=== PATIENT | female | born 1935 | race Caucasian/White ===

== ENCOUNTER 2017-05-06 21:44 | Emergency (ER) | payer MEDICARE ==
[~2017-05-06] VITALS: Ht 162.6 cm; Wt 78.9 kg
[~2017-05-06 21:44] MED LIST: ADVAIR 500/501 EA INH; AMLODIPINE BESYL5 MG PO; ASTEPRO137 MCG/0. INH; BYSTOLIC2.5 MG PO; COMBIVENT INH14.7 GM INH; FOLIC ACID1 MG PO; LOSARTAN POTASS25 MG PO; METHOTREXATE2.5 M1 PO; NISOLDIPINE25.5 MG PO; PANTOPRAZOLE SO40 MG PO; PREDNISONE5 MG PO; ULTRAM50 MG PO; WARFARIN SODIUM4 MG PO
--- NOTE | 2017-05-06 22:40 | Diagnostic Imaging Report ---
Exam: Head CT without contrast History: Trauma, fall Comparison studies: Previous head CT of 04/09/2012 is unavailable on PACS for comparison. Technique: Axial images were obtained from the skull base to the vertex. Coronal and sagittal images reconstructed from the axial data. Intravenous contrast: None Findings: Scalp: Small left frontal-suprarenal soft tissue hematoma. No retained hyperdense foreign body. Bones: No fractures, blastic or lytic lesions. Brain sulci: Mildly prominent. Ventricles: Mild compensatory dilatation. No hydrocephalus. Extra-axial spaces: No masses, no fluid collection. Parenchyma: No mass, acute hemorrhage or acute cortical vascular insults. A few scattered hypodensities in the supratentorial white matter are nonspecific but most compatible with chronic small vessel ischemic changes. Sellar/suprasellar region: No abnormalities. Craniocervical junction: Patent foramen magnum. No Chiari one malformation. Incidental findings: Atherosclerotic calcifications in the carotid siphons and left intradural vertebral artery. IMPRESSION: 1. Small left frontal/supraorbital scalp hematoma without underlying fracture or retained hyperdense foreign body. 2. No acute intracranial abnormalities. 3. Mild generalized volume loss. 4. Mild chronic microvascular ischemic changes. Signed by: Dr. Tam Lindsey M.D. on 05/06/2017 10:36 PM
[2017-05-07 00:09] VITALS: BP 174/74
== END 2017-05-07 00:17 | disposition home or self-care (01) ==
LOC: ER 21:44
DX: S00.81XA Abrasion of other part of head, initial encounter (principal); W01.0XXA Fall on same level from slipping, tripping and stumbling without subsequent striking against object, initial encounter; Y92.008 Other place in unspecified non-institutional (private) residence as the place of occurrence of the external cause; I10 Essential (primary) hypertension; E11.9 Type 2 diabetes mellitus without complications; M06.9 Rheumatoid arthritis, unspecified
CPT/HCPCS: 70450; 99283

== ENCOUNTER 2017-06-21 21:43 | Emergency (ER) | payer MEDICARE ==
[~2017-06-21] VITALS: Ht 162.6 cm; Wt 78.9 kg
--- OUTSIDE RECORDS SUMMARY | 2017-06-21 21:45 | XMS REPORT ---
[facility] Address Unknown Phone Unavailable Care Team Providers Care Binding Folder Machine Name Role Phone NIKA MONTALVO Unavailable Unavailable Problems This patient has no known problems. Allergies, Adverse Reactions, Alerts This patient has no known allergies or adverse reactions. Medications This patient has no known medications. Results Test Description Test Time Test Comments Text Results Atomic Results Result Comments CT BRAIN WO [place] [address] Patient Name: BETH JASSO MR #: [id number] : 1935 Age/Sex: 82/F Req #: [id number] Adm Physician: Ordered by: NIKA MONTALVO MD Report #: [id number] Location: ER Room/Bed: Procedure: [id number] CT/CT BRAIN WO Exam Date: Exam Time: REPORT STATUS: Signed Exam: Head CT without contrast History: Trauma, fall Comparison studies: Previous head CT of 04/09/2012 is unavailable on PACS for comparison. Technique: Axial images were obtained from the skull base to the vertex. Coronal and sagittal images reconstructed from the axial data. Intravenous contrast: None Findings: Scalp: Small left frontal- suprarenal soft tissue hematoma. No retained hyperdense foreign body. Bones : No fractures, blastic or lytic lesions. Brain sulci: Mildly prominent. Ventricles: Mild compensatory dilatation. No hydrocephalus. Extra-axial spaces : No masses, no fluid collection. Parenchyma: No mass, acute hemorrhage or acute cortical vascular insults. A few scattered hypodensities in the supratentorial white matter are nonspecific but most compatible with chronic small vessel ischemic changes. Sellar/suprasellar region: No abnormalities. Craniocervical junction: Patent foramen magnum. No Chiari one malformation. Incidental findings: Atherosclerotic calcifications in the carotid siphons and left intradural vertebral artery. IMPRESSION: 1. Small left frontal/supraorbital scalp hematoma without underlying fracture or retained hyperdense foreign body. 2. No acute intracranial abnormalities. 3. Mild generalized volume loss. 4. Mild chronic microvascular ischemic changes. Signed by: Dr. Mehran Duron M.D. on 2017 10:36 PM Dictated By: MEHRAN DURON MD 35 Transcribed By: NATIVIDAD on 05/06/172235 COPY TO: NIKA MONTALVO MD
--- NOTE | 2017-06-21 23:47 | Diagnostic Imaging Report ---
EXAMINATION: Head and cervical spine CT without contrast. HISTORY: Status post fall, head trauma COMPARISON: Head CT on 05/06/2017 TECHNIQUE: Multidetector axial images were obtained without contrast from the foramen magnum to the vertex and through the cervical spine. The images were reconstructed using brain and bone algorithms. Thin section brain images were reformatted into coronal and sagittal planes. HEAD CT FINDINGS: Skull: No lytic or blastic lesions. No fractures. Parenchyma: Unchanged mild chronic microvascular ischemic changes. No mass, hemorrhage or CT evidence of acute vascular insult. Brain volume: Normal for age. Ventricles: No hydrocephalus or displacement. Arteries: No density suggestive of thrombus. Dural sinuses: No abnormal density. Extra-axial spaces: No abnormal density. Foramen magnum: No mass, Chiari malformation, or basilar invagination. Sella: No obvious mass. Paranasal/mastoid sinuses: Imaged portions unremarkable. CERVICAL SPINE CT FINDINGS: Alignment:Reversal of the cervical lordosis. Age indeterminate likely chronic and degenerative anterolisthesis at C2-C3 and C3-C4 anterolisthesis at C7-T1.. Soft tissues: Normal. Vertebrae: Normal height and density. No acute fracture, infection or neoplasm. Degenerative changes: C1-C2: Degenerative changes without stenosis. C2-C3: Facet arthrosis without stenosis. Minimal anterolisthesis. C3-C4: Disc osteophyte compresses formation, uncovertebral and facet arthrosis minimally in the right. Moderately severe right foraminal stenosis. Minimal anterolisthesis. C4-C5: Disc osteophyte complex formation, uncovertebral and facet arthrosis minimally on the right. Moderate right foraminal stenoses.. C5-C6: Disc osteophyte complex formation, bilateral uncovertebral and facet arthrosis. Moderate canal and bilateral foraminal stenoses C6-C7: Disc osteophyte compresses formation, bilateral uncovertebral anterolisthesis and facet arthrosis. Moderate spinal canal and severe foraminal stenosis worst on the right. C7-T1: Bilateral facet arthrosis without significant stenoses. IMPRESSION: Head CT: 1. No acute intracranial hemorrhage. Unchanged from head CT on 05/06/2017 2. Stable mild chronic microvascular ischemic changes. Cervical spine CT: 1. No acute fractures or dislocations. 2. Chronic degenerative changes as described. Note: Acute post traumatic spinal cord, vascular or ligamentous injury cannot adequately be assessed with CT. Signed by: Dr. Belkis Ramos M.D. on 06/21/2017 11:43 PM
--- NOTE | 2017-06-21 23:48 | Diagnostic Imaging Report ---
SHOULDER RIGHT COMPLETE HISTORY: Right shoulder pain status post fall. COMPARISON: None FINDINGS: Bones: No displaced fracture. Osseous alignment is within normal limits. Joints: Moderate degenerative changes of the right glenohumeral joint. Significant narrowing of the acromiohumeral interval suggestive of rotator cuff injury. Soft tissues: The soft tissues appear unremarkable. IMPRESSION: 1. No acute osseous abnormality. 2. Lack of internal/external rotation views limits the examination and suggest a frozen shoulder due to rotator cuff tear. However, dislocation or nondisplaced fractures cannot be excluded 3. Further evaluation with axillary or scapular views are recommended Signed by: Dr. Jaylon Donnelly M.D. on 06/21/2017 11:44 PM
[2017-06-21 23:52] VITALS: BP 152/89
== END 2017-06-21 23:53 | disposition home or self-care (01) ==
LOC: ER 21:43
DX: S00.81XA Abrasion of other part of head, initial encounter (principal); S00.83XA Contusion of other part of head, initial encounter; S40.011A Contusion of right shoulder, initial encounter; W01.0XXA Fall on same level from slipping, tripping and stumbling without subsequent striking against object, initial encounter; Y93.01 Activity, walking, marching and hiking; Y92.488 Other paved roadways as the place of occurrence of the external cause; I10 Essential (primary) hypertension; E11.9 Type 2 diabetes mellitus without complications; J45.909 Unspecified asthma, uncomplicated; M06.9 Rheumatoid arthritis, unspecified; F32.9 Major depressive disorder, single episode, unspecified; E78.5 Hyperlipidemia, unspecified
CPT/HCPCS: 70450; 72125; 99283

== ENCOUNTER → 2017-10-30 | Outpatient (CLI) | payer MEDICARE ==
[~2017-10-30] MED LIST changes: +FUROSEMIDE INJ 10 MG/ML 4 ML VIAL ONE
--- NOTE | 2017-10-30 18:48 | Diagnostic Imaging Report ---
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 Recent urinary incontinence. Technique: Following intravenous administration of 10 mCi of Tc-99m MAG3, dynamic images of the kidneys in the posterior projection were obtained through 40 minutes. Lasix 40 mg was administered intravenously at 10 minutes post injection of the tracer. Report: Left kidney: Perfusion of the left kidney is prompt. The kidney has a normal reniform shape. Extraction of tracer from the blood pool is normal for age. Clearance of tracer from the renal parenchyma is prompt. No caliectasis but the renal pelvis is mildly dilated.. Increased pooling of tracer is seen in the renal pelvis. No net drainage of tracer from the pelvicalyceal system is seen prior to administration of Lasix. Washout of tracer from the pelvicalyceal system following administration of Lasix is rapid with a T-1/2 of 10 minutes (normal less than 15 minutes). No significant stasis of tracer is seen within the left ureter. Right kidney: Perfusion to the right kidney is prompt. The right kidney has a normal reniform shape. The right kidney is smaller than the left kidney. Extraction of tracer by the renal parenchyma is normal for age. Clearance of tracer from the renal parenchyma is prompt. No dilated calices but the renal pelvis is mildly dilated. Increased pooling of tracer is seen within the renal pelvis. No net drainage of tracer from the pelvicalyceal system is seen prior to administration of Lasix. Washout of tracer from the pelvicalyceal system following administration of Lasix is rapid with a T-1/2 of 10 minutes (normal less than 15 minutes). No significant stasis of tracer is seen within the right ureter. Differential renal function: The left kidney contributes 55% of total renal function and the right kidney contributes 45% (normal 43-57%). Impression: 1. The function of the left kidney is generally normal for patient's age. The renal pelvis is mildly dilated. No physiologically significant obstruction of the renal collecting system is present. 2. The function of the right kidney is generally normal for patient's age. The smaller size of the right kidney compared to the left accounts for the differential function of 45%. The renal pelvis is mildly dilated. No physiologically significant obstruction of the renal collecting system is present. 3. The differential renal function is preserved. Signed by: Dr. Xiao Reddy M.D. on 10/30/2017 6:45 PM
== END ==
LOC: NM 14:01
PROVIDERS: ATTEND Urology
DX: Q62.11 Congenital occlusion of ureteropelvic junction (principal)
CPT/HCPCS: 78708; A9562; J1940

== ENCOUNTER → 2018-10-19 | Outpatient (CLI) | payer MEDICARE ==
--- NOTE | 2018-10-19 12:17 | Diagnostic Imaging Report ---
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 Lasix 40 mg was administered intravenously at 10 minutes post injection of the tracer. Report: Left kidney: Perfusion of the left kidney is prompt. The kidney has a normal reniform shape. Extraction of tracer from the blood pool is normal. Clearance of tracer from the renal parenchyma is prompt. The pelvicalyceal system is not dilated although the renal pelvis is prominent and slightly more dilated than on the. Mildly increased pooling of tracer is seen within the pelvis. No net drainage of tracer from the pelvicalyceal system is seen prior to administration of Lasix. Washout of tracer from the pelvicalyceal system following administration of Lasix is rapid with a T-1/2 of 10 minutes (normal less than 15 minutes). No significant stasis of tracer is seen within the left ureter. Right kidney: Perfusion to the right kidney is prompt. The right kidney has a normal reniform shape. Extraction of tracer by the renal parenchyma is normal. Clearance of tracer from the renal parenchyma is prompt. The pelvicalyceal system is not dilated although the renal pelvis is slightly more prominent than prior. Mildly increased pooling of tracer is seen within the renal pelvis. No net drainage of tracer from the pelvicalyceal system is seen prior to administration of Lasix. Washout of tracer from the pelvicalyceal system following administration of Lasix is adequate with a T-1/2 of 8 minutes (normal less than 15 minutes). No significant stasis of tracer is seen within the right ureter. Differential renal function: The left kidney contributes 50% of total renal function and the right kidney contributes 50% (normal 43-57%), previously left 47% and right 53%, which is not a statistically significant difference. Impression: 1. The function of the left kidney is generally normal. No hydronephrosis is present although the renal pelvis is prominent. No physiologically significant obstruction of the renal collecting system is present. The appearance of the kidney and the washout pattern are unchanged from the prior study. The slightly rivera renal pelvis compared to prior likely reflects hydration status. 2. The function of the right kidney is generally normal. No hydronephrosis is present although the renal pelvis is prominent. No physiologically significant obstruction of the renal collecting system is present. The appearance of the kidney and the washout pattern are unchanged from the prior study. The slightly rivera renal pelvis compared to prior likely reflects hydration status. 3. The differential renal function is preserved. Signed by: Dr. Xiao Reddy M.D. on 10/19/2018 12:13 PM
== END ==
LOC: NM 09:33
PROVIDERS: ATTEND Urology
DX: Q62.11 Congenital occlusion of ureteropelvic junction (principal)
CPT/HCPCS: 78708; A9562; J1940

== ENCOUNTER → 2019-09-22 | Outpatient (CLI) | payer MEDICARE ==
[~2019-09-22] MED LIST changes: -FUROSEMIDE INJ 10 MG/ML 4 ML VIAL ONE
[2019-09-22 13:49] LABS: BASOPHILS # (AUTO) 0.1 (0.0-0.1); EOSINOPHILS # (AUTO) 0.2 (0.0-0.4); HEMOGLOBIN 11.8 g/dL (12.0-16.0); LYMPHOCYTES # (AUTO) 1.6 (1.0-3.2); LYMPHOCYTES % 18.6 % (18.0-39.1); MEAN CORPUSCULAR HEMOGLOBIN 29.5 pg (28-32); MEAN CORPUSCULAR HGB CONC 32.8 g/dL (31-35); MONOCYTES # (AUTO) 0.7 (0.2-0.8); MONOCYTES % 7.9 % (4.4-11.3); NEUTROPHILS # (AUTO) 6.1 (2.1-6.9); PLATELET COUNT 330 x10e3/uL (140-360); RED CELL DISTRIBUTION WIDTH 13.2 % (11.7-14.4)
[2019-09-22 15:05] LABS: ERYTHROCYTE SEDIMENTATION RATE 26 mm/hr (0-20)
== END ==
LOC: RAD 12:40
PROVIDERS: ATTEND Specialist
DX: T84.53XA Infection and inflammatory reaction due to internal right knee prosthesis, initial encounter (principal)
CPT/HCPCS: 36415; 85025; 85651; 86140

== ENCOUNTER → 2019-09-30 | Outpatient (CLI) | payer MEDICARE ==
--- NOTE | 2019-09-30 14:02 | Diagnostic Imaging Report ---
X-ray chest PA and lateral view Comparison: None. History: Preop for surgery Findings: Central airways unremarkable. Heart size borderline normal. Atherosclerotic aorta. No pleural effusion or pneumothorax. Lung smith grossly unremarkable. Retrocardiac lucency suggesting presence of a hiatal hernia. Visualized skeletal structures show degenerative changes and mild thoracic kyphosis. Upper abdomen unremarkable. Impression: No acute cardiopulmonary disease. Possible hiatal hernia. Signed by: Liban Bell MD on 09/30/2019 1:59 PM
== END ==
LOC: RAD 11:26
PROVIDERS: ATTEND Family Medicine
DX: Z01.810 Encounter for preprocedural cardiovascular examination (principal)
CPT/HCPCS: 71046

== ENCOUNTER 2019-10-11 08:45 | Inpatient (IN) | payer MEDICARE, OTHER ==
[2019-10-07 11:20] LABS: BASOPHILS # (AUTO) 0.1 (0.0-0.1); BASOPHILS % 0.6 % (0.0-1.0); EOSINOPHILS # (AUTO) 0.1 (0.0-0.4); EOSINOPHILS % 0.7 % (0.0-6.0); HEMATOCRIT 33.1 % (34.2-44.1); HEMOGLOBIN 10.9 g/dL (12.0-16.0); LYMPHOCYTES # (AUTO) 1.2 (1.0-3.2); LYMPHOCYTES % 12.5 % (18.0-39.1); MEAN CORPUSCULAR HEMOGLOBIN 29.1 pg (28-32); MEAN CORPUSCULAR HGB CONC 32.9 g/dL (31-35); MEAN CORPUSCULAR VOLUME 88.5 fL (81-99); MONOCYTES # (AUTO) 0.9 (0.2-0.8); MONOCYTES % 9.3 % (4.4-11.3); NEUTROPHILS # (AUTO) 7.4 (2.1-6.9); NEUTROPHILS % 76.5 % (38.7-80.0); PLATELET COUNT 460 x10e3/uL (140-360); RED BLOOD COUNT 3.74 x10e6/uL (3.6-5.1); RED CELL DISTRIBUTION WIDTH 12.8 % (11.7-14.4)
[2019-10-07 11:36] LABS: ANION GAP 14.9 mmol/L (8-16); BLOOD UREA NITROGEN 13 mg/dL (7-26); BUN/CREATININE RATIO 15 (6-25); CALCIUM 9.3 mg/dL (8.4-10.2); CARBON DIOXIDE 24 mmol/L (22-29); CHLORIDE 97 mmol/L (98-107); CREATININE, SERUM 0.86 mg/dL (0.57-1.11); EST GLOMERULAR FILTRATION RATE > 60 ML/MIN (60-); GLUCOSE 202 mg/dL (74-118); POTASSIUM 3.9 mmol/L (3.5-5.1); SODIUM 132 mmol/L (136-145)
[~2019-10-11] VITALS: Ht 160 cm; Wt 74.4 kg
[~2019-10-11 08:45] MED LIST changes: +AMLODIPINE BESY10 MG PO; +BUPROPION XL150 MG PO; +BYSTOLIC5 MG PO; +COMBIVENT RESPIM4 GM IH; +CYCLOBENZAPRINE10 MG PO; +FEXOFENADINE H180 MG PO; +FOLIC ACID0.4 MG PO; +FOSAMAX70 MG PO; +GLIPIZIDE ER5 MG PO; +HYDRALAZINE HCL25 MG PO; +IRBESARTAN150 MG PO; +METFORMIN HCL500 MG PO; +METHOTREXATE2.5 MG PO; +MONTELUKAST SOD10 MG PO; +ORENCIA87.5 MG/0. IV; +PRO AIR INH; +ROPIVACAINE 246.25 MG, EPINEPHRINE HCL 1:1000 1ML 0.5 MG, CLONIDINE HCL 0.08 MG, KETORO... INJ ONE; +SIMVASTATIN40 MG PO; +SYMBICORT 16010.2 GM INH; +VANCOMYCIN HCL 1 GM VIAL ONE
[2019-10-11] MEDS ORDERED: VANCOMYCIN 1GM/NS 250 ML 250 ML ONE (09:08)
[2019-10-11] MEDS ORDERED: CELECOXIB 200 MG CAP ONE (09:22)
[2019-10-11] MEDS ORDERED: DEXAMETHASONE SOD PHOS 10 MG/1 ML VIAL ONE (09:22)
[2019-10-11] MEDS ORDERED: GABAPENTIN 300 MG CAP ONE (09:23)
[2019-10-11] MEDS ORDERED: BACITRACIN 50,000 UNIT VIAL ONE (09:56)
[2019-10-11] MEDS ORDERED: VANCOMYCIN HCL 500 MG ONE (09:56)
[2019-10-11] MEDS ORDERED: SODIUM CHLORIDE 0.9% 500ML 500 ML ONE (09:56)
[2019-10-11] MEDS ORDERED: TRANEXAMIC ACID 1,000 MG/10 ML ML ONE (09:56)
[2019-10-11] MEDS ORDERED: BUPIVACAINE 7.5MG/ML /DEXTROSE 82.5MG/ML 2 ML AMP INJ ONE (10:18)
[2019-10-11] MEDS ORDERED: MUPIROCIN 2% OINT 22 GM TUBE ONE (12:39)
[2019-10-11] MEDS ORDERED: KETOROLAC TROMETHAMINE 30 MG/ML VIAL IV PRN (13:00)
[2019-10-11] MEDS ORDERED: ACETAMINOPHEN 650 MG SUPP PR PRN (13:00)
[2019-10-11] MEDS ORDERED: DIPHENHYDRAMINE HCL INJ 50 MG/ML VIAL IV PRN (13:00)
[2019-10-11] MEDS ORDERED: DOCUSATE SODIUM 100 MG CAP PO PRN (13:00)
[2019-10-11] MEDS ORDERED: HYDROCODONE/APAP 5MG-325MG TAB PO PRN (13:00)
[2019-10-11] MEDS ORDERED: ONDANSETRON HCL INJ 2MG/ML 2ML 2 MG/ML VIAL IV PRN (13:00)
[2019-10-11] MEDS ORDERED: FENTANYL CITRATE/PF 100MCG/2 ML INJ ONE ×2 (13:51→15:18)
[2019-10-11] MEDS ORDERED: HYDROMORPHONE 1MG/1ML INJ ONE (14:31)
--- NOTE | 2019-10-11 15:10 | NUR ---
PT ARRIVED TO ROOM 106; IN STABLE CONDITION.
[2019-10-11 15:12] VITALS: BP 145/76
[2019-10-11] MEDS ORDERED: MIDAZOLAM HCL 2 MG/2 ML VIAL ONE (15:18)
--- NOTE | 2019-10-11 15:25 | Diagnostic Imaging Report ---
EXAMINATION: KNEE RIGHT 1-2 VIEWS INDICATION: Postoperative COMPARISON: None FINDINGS: AP and lateral portable radiographs of the right knee demonstrate removal of presumed prior right knee arthroplasty hardware and placement of antibiotic spacer. Alignment appears near-anatomic. Surgical drain in place. Small amount of subcutaneous soft tissue emphysema. Surgical skin kyle overlie the anterior knee. IMPRESSION: Postoperative findings of the right knee as above. Signed by: Latesha Baker MD on 10/11/2019 3:22 PM
--- NOTE | 2019-10-11 16:46 | NUR ---
DR JONES OFFICE PREARRANGED FOLLOWING DISCHARGE PLAN OF: HOME TO [address] [facility] WITH [facility] CONFIRMED WITH STEPHANIE [phone] DME 3 IN ONE COMMODE, CPM AND ROLLING WALKER WITH WHEELS. PROVIDED BY SUSANNE [phone] STEVE SIGNED AND ON CHART COPY LEFT WITH PATIENT GAVE CARD FOR QUESTIONS AND OR CONCERNS.
--- NOTE | 2019-10-11 17:50 | Operative Report ---
DATE OF PROCEDURE: 10/11/2019 SURGEON: Tam Alonso MD MECHANICAL ENGINEERING OFFICER: Rory Winchester, certified PA. PREOPERATIVE DIAGNOSIS: Infected right total knee arthroplasty. 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 PROCEDURES: Right knee irrigation and debridement, resection arthroplasty, repair of extensor mechanism, placement of temporary antibiotic prosthesis. INDICATIONS: The patient is an 84-year-old lady, who is several years status post a right total knee replacement at an outside institution. She has known for a long time that she had some issues with her knee cap after the surgery. Over the last several weeks, she developed a draining sinus over the anterior aspect of the knee. Considering the radiographic appearance of the patella, it was highly suggestive that this was a draining sinus coming from within the knee. I explained all of this to the patient. The severe challenges of someone in her age category getting through these potential surgeries was explained. She has a good attitude and understands the challenges. She would like to proceed with wound exploration and treatment as indicated. We have thoroughly explained the high likelihood of performing a resection arthroplasty and a potential second-stage reimplantation a few months later. She states she understands and wishes to proceed. DESCRIPTION OF PROCEDURE: The patient was brought to the operating room and given a spinal anesthetic. She received tranexamic acid and vancomycin was initiated. At the time, she was placed into the operating room. Her right lower extremity was prepped and draped in a sterile manner. A preoperative time-out was performed. The extremity was exsanguinated and the proximal tourniquet was inflated to 300 mmHg. The previous incision was utilized. This was carried down through the prepatellar fascia. The lateral retinaculum was completely absent. Much of the quadriceps mechanism was absent. I would estimate that there was about 20% of the quadriceps tendon, still attached to the proximal patella. The patella was nearly vertically oriented in the trochlear groove. There was an obvious communication between the deep joint and the draining sinus. There was more than expected bleeding encountered. We elected to deflate the tourniquet and exsanguinate the extremity a second time. The tourniquet was reinflated to 350 mmHg. This helped, but the wound was not completely dry. We returned to exposing the knee. It was evident that this would clearly necessitate a synovectomy and resection arthroplasty. A subtotal synovectomy was therefore, performed. Cultures were sent, well prior to the full administration of the antibiotics. Further soft tissue releases were performed to bring the knee up into flexion with the patella everted. A 0.5-inch reciprocating saw was used to delaminate the tibial and femoral prosthesis from the underlying bone. Bone tamps were used to remove the components. The bone was soft, but minimal bone destruction in addition to the previous surgery was accomplished. The patella was carefully removed. The patellar bone was also very soft and easily fragmented. All of the bone cement from the previous surgery was carefully removed. All necrotic bone was removed from both the patella, the proximal tibia, and distal femur. The wound was thoroughly irrigated with a shower tip pulsatile lavage. Care was taken to make sure that all the inflammatory synovium was excised. A temporary antibiotic prosthesis was trialed for sizing. The [employer] system was used. Two mixes of bone cement were prepared on the back table. An additional 3 g of vancomycin were placed into each mix of cement. An additional gram of tobramycin was also added. The femoral and tibial components were cemented into place. Some of the extravasated cement was removed. The wound was further irrigated while the cement cured. The wound was then closed over a deep medium-sized Hemovac drain. The extensor mechanism was repaired as best as possible considering what was left of the tissue. The medial arthrotomy was repaired with #1 Ethibond in an interrupted fashion. The skin was carefully closed with subcuticular Vicryl and kyle. The skin was very thin. A sterile bandage and a knee immobilizer were applied. The patient was then transported to the recovery room in stable condition. Estimated blood loss was 100 mL. At the end of the procedure, all needle and sponge counts were correct. Tam Alonso MD DR/MARCELL /[id number]
[2019-10-11] MEDS: ENOXAPARIN SOD INJ 40 MG/0.4 ML SYR SC SCH (17:51)
[2019-10-11] MEDS: CELECOXIB 100 MG CAP PO SCH (17:51)
[2019-10-11] MEDS: HYDROCODONE/APAP 7.5MG-325MG 1 EA TAB PO PRN (17:51)
[2019-10-11] MEDS: VANCOMYCIN 1GM/NS 250 ML 250 ML IV SCH (17:53)
[2019-10-11] MEDS: SODIUM CHLORIDE 0.9% 1000ML 1,000 ML IV SCH (17:53)
--- NOTE | 2019-10-11 17:55 | NUR ---
PT VOIDED ONCE IN BEDPAN. IN STABLE CONDITION.
[2019-10-11 18:08] VITALS: BP 147/72
[2019-10-11 20:00] VITALS: BP 151/72
--- NOTE | 2019-10-11 20:20 | NUR ---
Attempted to call Dr Collins for medical management, answering service stated that Dr Collins does not cover here.
--- NOTE | 2019-10-11 20:42 | NUR ---
Spoke with Dr Alonso regarding consult to Dr Collins for medical management. New consult for Dr Heller for medical management.
--- NOTE | 2019-10-11 20:53 | NUR ---
Dr Gamez consulted for medical management. Reported FSBS 309 and no sliding scale ordered. New order for low dose sliding scale humalog.
[2019-10-11] MEDS ORDERED: ZOLPIDEM TARTRATE 5 MG TAB PO PRN (21:00)
[2019-10-11] MEDS ORDERED: DEXTROSE 50% SYRINGE 50 ML IV PRN (21:00)
[2019-10-11] MEDS: NEBIVOLOL 10 MG TAB PO SCH (21:45)
[2019-10-11] MEDS: INSULIN LISPRO 100 UNIT/1 ML 3ML VIAL SQ SCH (22:00)
[2019-10-11] MEDS: SIMVASTATIN 40 MG TAB PO SCH (22:18)
[2019-10-12] VITALS (7 sets, daily range): BP systolic 122–153; BP diastolic 60–76
[2019-10-12] MEDS: VANCOMYCIN 1GM/NS 250 ML 250 ML IV SCH (01:50)
[2019-10-12] MEDS: SODIUM CHLORIDE 0.9% 1000ML 1,000 ML IV SCH ×3 (01:56→21:07)
[2019-10-12] MEDS: HYDROCODONE/APAP 7.5MG-325MG 1 EA TAB PO PRN ×5 (02:00→21:25)
[2019-10-12 05:04] LABS: HEMATOCRIT 26.1 % (34.2-44.1); HEMOGLOBIN 8.6 g/dL (12.0-16.0)
--- NOTE | 2019-10-12 07:00 | NUR ---
RECEIVED PATIENT AWAKE RESTING IN BED NO S/S OF DISTRESS. BED LOW, WHEELS LOCKED, SIDE RAILS X2. CALL LIGHT IN REACH WILL CONTINUE TO MONITOR PATIENT.
[2019-10-12] MEDS: INSULIN LISPRO 100 UNIT/1 ML 3ML VIAL SQ SCH ×4 (07:30→21:00)
[2019-10-12] MEDS: LORATADINE 10 MG TAB PO SCH (08:44)
[2019-10-12] MEDS: GLIPIZIDE 5 MG TAB ER PO SCH (08:50)
[2019-10-12] MEDS: IRBESARTAN 150 MG TAB PO SCH (08:54)
[2019-10-12] MEDS: MONTELUKAST SODIUM 10 MG TAB PO SCH (08:54)
[2019-10-12] MEDS: AMLODIPINE BESYLATE 10 MG TAB PO SCH (08:54)
[2019-10-12] MEDS: FOLIC ACID 1 MG TAB PO SCH (08:54)
[2019-10-12] MEDS: BUPROPION HCL 150 MG TABCR PO SCH (08:54)
[2019-10-12] MEDS: METFORMIN HCL 500 MG TAB PO SCH ×2 (08:54→17:01)
[2019-10-12] MEDS: CELECOXIB 100 MG CAP PO SCH ×2 (08:54→17:01)
[2019-10-12] MEDS: HYDRALAZINE HCL 25 MG TAB PO SCH (08:54)
[2019-10-12] MEDS: PANTOPRAZOLE SOD 40 MG TABEC PO SCH (08:54)
[2019-10-12] MEDS: NEBIVOLOL 10 MG TAB PO SCH ×3 (08:54→21:00)
[2019-10-12] MEDS ORDERED: VANCOMYCIN 1GM/NS 250 ML 250 ML IV SCH (09:00)
[2019-10-12] MEDS: CEFEPIME 1GM/NS 0.9% 50 ML 50 ML IV SCH ×2 (10:04→17:01)
--- NOTE | 2019-10-12 10:44 | Progress Note ---
DATE: SUBJECTIVE: The patient is seen and evaluated. Available labs and notes reviewed. Discussed with Dr. Walls in details. Please refer to chart for more information. REVIEW OF SYSTEMS: No nausea, vomiting, fever, chills, chest pain, shortness of breath, had a rash, dysuria. Pain seems to be controlled. PHYSICAL EXAMINATION: VITAL SIGNS: Temperature is 98.1, pulse 73, respirations 20, and blood pressure 153/67. GENERAL: Alert and oriented, no acute distress. CV: S1, S2. CHEST: Equal expansion. Clear to auscultation. No acute distress. ABDOMEN: Soft, nontender. No distention. Bowel sounds positive. HEENT: Moist. No pallor. No JVD. EXTREMITIES: Right knee with a surgical dressing and immobilizer. MEDICATION: List reviewed. LABORATORY STUDIES: White count of 9.6 on 10/07/2019 with platelet count of 460, and creatinine was 0.86. No new CBC or BMP from today. Wound culture from 10/11/2019 showed no organisms on Gram stain with the culture pending. Imaging 10/11/2019, x-ray of the right knee showed postoperative findings of the right knee showing alignment appears near anatomic. Surgical drain was noted. Removal of presumed prior right knee arthroplasty, hardware with placement of antibiotic spacers. ASSESSMENT AND PLAN: 1. Infected right knee. The patient is status post right knee I and D with resection of arthroplasty and placement of a temporary antibiotic. 2. Diabetes. 3. Hypertension. 4. Hyperlipidemia. 5. Anemia. 6. Cultures pending with a gram stain negative. We continued with the treatment with vancomycin IV. Get a PICC line. Plan for 3 weeks of IV antibiotics and follow up with the wound culture. This was discussed with Dr. Walls in details. Please refer to chart for more information. Dictated by Rl Garcia PA-C (Al) Gamaliel Walls MD /MODL /[id number]
[2019-10-12] MEDS ORDERED: ACETAMINOPHEN 1000 MG/100 ML IV PRN (13:00)
[2019-10-12] MEDS ORDERED: CEFEPIME HCL 1 GM VIAL IV SCH (14:00)
[2019-10-12] MEDS: ENOXAPARIN SOD INJ 40 MG/0.4 ML SYR SC SCH (17:01)
--- NOTE | 2019-10-12 17:26 | Diagnostic Imaging Report ---
Examination: Single AP view of the chest. COMPARISON: Chest 2 views 09/30/2019 INDICATION: Line placement IMPRESSION: 1. Lines and Tubes: Interval placement of right-sided PICC line with distal. Projecting in the proximal to mid SVC. 2. Lungs are grossly clear. No consolidation or effusion. 3. Mild enlargement of the cardiac silhouette. Mild central venous congestion. Stable lucency with air-fluid level in the retrocardiac region, likely reflecting hiatal hernia 4. No acute bony abnormalities. Marked bilateral glenohumeral joint degenerative changes. Signed by: Dr. Sebastian Sparrow M.D. on 10/12/2019 5:22 PM
--- NOTE | 2019-10-12 19:20 | NUR ---
BEDSIDE SHIFT REPORT RECEIVED FROM DAY RN. PT IS ALERT AND ORIENTED X3. RESPIRATIONS ARE EVEN AND UNLABORED. JAMESON WRAP TO RT LEGS/P RT KNEE REPLACEMENT WITH SPACERS. 20 G SL IN LEFT HAND. PICC RT UPPER ARM DL - OK TO USE PER DAY RN. RT HEMOVAC DRAIN TO RT LEG.RT ANKLE EDEMATOUS. IMMOBILIZER LOSENED SLIGHTLY ON RT LEG. PT C/O IMMOBILIZER TO TIGHT. PT VOID PER DIAPER. DENIES PAIN. CALL LIGHT WITHIN REACH. BED LOCKED AND IN LOW POSITION.
[2019-10-12] MEDS ORDERED: VANCOMYCIN 300 ML IV SCH (21:00)
[2019-10-12] MEDS: SIMVASTATIN 40 MG TAB PO SCH (21:08)
--- NOTE | 2019-10-12 22:17 | History and Physical ---
PRIMARY CARE PHYSICIAN: Dr. Henok Kelly. CHIEF COMPLAINT: Right lower extremity pain. HISTORY OF PRESENT ILLNESS: This is an 84-year-old female with past medical history of hypertension, diabetes, high cholesterol, hiatal hernia, GERD, and rheumatoid arthritis, admitted post right knee irrigation and debridement with resection arthroplasty and repair of extensor mechanism with the placement of temporary antibiotic prosthesis per Dr. Alonso. She denies any fever, chills, chest pain, shortness of breath, nausea, or vomiting. She was noted to have recent infection due to her kneecap shifting. She was evaluated by Dr. Alonso and underwent debridement yesterday. She has a drain and dressing is intact. Pain has controlled, and on cefepime and vancomycin IV antibiotics therapy. PAST MEDICAL HISTORY: 1. Hypertension. 2. Diabetes. 3. High cholesterol. 4. GERD. 5. Rheumatoid arthritis. PAST SURGICAL HISTORY: She had right knee total arthroplasty 10 years ago, bilateral cataract surgery last year, hysterectomy, bladder suspension, and back surgery. FAMILY MEDICAL HISTORY: Reports her sister and brother both have diabetes. SOCIAL HISTORY: She denies any tobacco, alcohol, or illicit drug use. She lives with her at home. ALLERGIES: SHE IS ALLERGIC TO PENICILLIN, SHELLFISH, ASPIRIN, CLONIDINE, LEVAQUIN, MEPERIDINE, AND PHENYLBUTAZONE. REVIEW OF SYSTEMS: 12 system reviewed and negative except as reported on HPI. PHYSICAL EXAMINATION: VITAL SIGNS: Temperature 97.9, pulse is 65, respirations 18, blood pressure 140/60, and pulse ox is 95% on room air. GENERAL: In no acute distress. HEENT: Normocephalic and atraumatic. LUNGS: Clear to auscultation. CARDIOVASCULAR: Regular rate and rhythm. GI: Soft and nontender. NEUROLOGIC: Alert, awake, and oriented x3. MUSCULOSKELETAL: Right lower extremity decreased ROM due to recent surgery. SKIN: Dry and intact. PSYCH: Calm. LABORATORY DATA: WBC 9.65, hemoglobin 10.9, hematocrit 33.1, and platelets 460. Sodium 132, potassium 3.9, and creatinine 0.86. Vancomycin trough is 21.2. Coronavirus PCR is negative. X-ray of the right knee shows postoperative findings of the right knee as above. IMPRESSION: 1. Right knee infection post total knee arthroplasty, status post I and D and resection of arthroplasty with placement of temporary antibiotic. ID was consulted, currently on cefepime and vancomycin IV. 2. Hypertension. Resume home Norvasc and hydralazine. 3. Diabetes type 2. Continue on glipizide and metformin, sliding scale insulin as needed. 4. High cholesterol. Continue statin. 5. History of gastroesophageal reflux disease. Continue Protonix. 6. History of rheumatoid arthritis. Pain management as needed. 7. Deep vein thrombosis prophylaxis. On Lovenox. PLAN: To continue current treatment, physical therapy to evaluate and treat. DISPOSITION: To home with home health once cleared by Orthopedics. Dictated by MELVIN Sarah Omar Heller MD MY/MODL /[id number]
[2019-10-13] VITALS: BP 129/51
[2019-10-13] MEDS: CEFEPIME 1GM/NS 0.9% 50 ML 50 ML IV SCH ×3 (02:50→16:29)
[2019-10-13 04:00] VITALS: BP 128/57
[2019-10-13] MEDS: SODIUM CHLORIDE 0.9% 1000ML 1,000 ML IV SCH ×2 (05:24→14:38)
[2019-10-13 05:45] LABS: HEMATOCRIT 25.2 % (34.2-44.1); HEMOGLOBIN 8.1 g/dL (12.0-16.0)
--- NOTE | 2019-10-13 06:16 | NUR ---
LT 20 G SL D/C WITH CATHETER INTACT.PRESSURE DRESSING TO HAND. NO BLEEDING NOTED. PT TOLERATED PROCEDURE WELL.
--- NOTE | 2019-10-13 07:00 | NUR ---
RECEIVED PATIENT AWAKE RESTING IN BED NO S/S OF DISTRESS. BED LOW, WHEELS LOCKED, SIDE RAILS X2. CALL LIGHT IN REACH WILL CONTINUE TO MONITOR PATIENT.
[2019-10-13] MEDS: INSULIN LISPRO 100 UNIT/1 ML 3ML VIAL SQ SCH ×3 (07:30→16:30)
[2019-10-13] MEDS: HYDRALAZINE HCL 25 MG TAB PO SCH (08:03)
[2019-10-13] MEDS: LORATADINE 10 MG TAB PO SCH (08:04)
[2019-10-13] MEDS: GLIPIZIDE 5 MG TAB ER PO SCH (08:04)
[2019-10-13] MEDS: METFORMIN HCL 500 MG TAB PO SCH ×2 (08:04→16:28)
[2019-10-13] MEDS: FOLIC ACID 1 MG TAB PO SCH (08:04)
[2019-10-13] MEDS: PANTOPRAZOLE SOD 40 MG TABEC PO SCH (08:04)
[2019-10-13] MEDS: CELECOXIB 100 MG CAP PO SCH (08:04)
[2019-10-13] MEDS: NEBIVOLOL 10 MG TAB PO SCH ×2 (08:04→14:37)
[2019-10-13] MEDS: IRBESARTAN 150 MG TAB PO SCH (08:04)
[2019-10-13] MEDS: BUPROPION HCL 150 MG TABCR PO SCH (08:04)
[2019-10-13] MEDS: MONTELUKAST SODIUM 10 MG TAB PO SCH (08:04)
[2019-10-13] MEDS: AMLODIPINE BESYLATE 10 MG TAB PO SCH (08:04)
[2019-10-13 08:06] VITALS: BP 124/53
[2019-10-13 08:19] VITALS: BP 124/53
--- NOTE | 2019-10-13 09:28 | Progress Note ---
DATE: SUBJECTIVE: The patient is seen and evaluated. Available labs and notes reviewed. Discussed with Dr. Walls. Discussed with Case Management. Discussed with the patient. REVIEW OF SYSTEMS: No nausea, vomiting, fever, chills, chest pain, shortness of breath, headache, rash, dysuria, tolerating antibiotics okay without any diarrhea. No medical complaints this morning. PHYSICAL EXAMINATION: VITAL SIGNS: Temperature 98.4, pulse 62, respirations 18, and blood pressure 124/53. GENERAL: Alert and oriented, no acute distress. CV: S1-S2. CHEST: Equal expansion. Clear to auscultation. No acute distress. ABDOMEN: Soft, nontender and nondistended. HEENT: Moist. No pallor. No JVD. EXTREMITIES: Right lower extremity surgical site dressed with Hemovac in place. MEDICATIONS: Medication list reviewed. From ID point of view, the patient is on cefepime 1 g IV piggyback q.6 hours and vancomycin 1 g IV piggyback daily. Toxicology; vancomycin trough 21.2 yesterday. LABORATORY STUDIES: No new CBC or BMP available. MICROBIOLOGY: Wound culture still negative, 24 hours. IMAGING: Status post PICC line placement. ASSESSMENT AND PLAN: 1. Infected right knee, status post I and D, right knee resection of arthroplasty and placement of a temporary antibiotics. 2. Diabetes. 3. Hypertension. 4. Debility. 5. Hyperlipidemia. 6. Anemia. 7. Continue with antibiotics for a total of 3 weeks. The patient is status post PICC line placement. Decision has been made between home with IV antibiotics and/or to another facility for completion of IV antibiotics and receive some rehab. Discussed with Case Management about the length of antibiotics and the labs that the patient is going to need during the IV antibiotics. Planned to remove the PICC line after IV antibiotics completed. Follow up with Dr. Walls in 2 weeks after discharge. Please refer to chart for more information. Discussed with Dr. Walls. Dictated by Rl Garcia PA-C (Al) Gamaliel Walls MD /MODL /[id number]
[2019-10-13 11:37] VITALS: BP 140/57
[2019-10-13] MEDS ORDERED: Hydrocodone/Apap 5MG-325MG PO (13:04)
[2019-10-13] MEDS ORDERED: LOVENOX40 MG/0.4 SC (13:04)
[2019-10-13] MEDS ORDERED: Hydrocodone/Apap 7.5MG-325MG PO (13:04)
[2019-10-13] MEDS ORDERED: ONDANSETRON HCL 4 MG ORAL DISINTEGRATING TAB PO PRN (13:15)
[2019-10-13] MEDS: HYDROCODONE/APAP 7.5MG-325MG 1 EA TAB PO PRN (14:37)
--- NOTE | 2019-10-13 15:49 | NUR ---
REPORT CALLED TO MATTHEW AT [facility]. SUMMARY OF CARE PROVIDED TO PATIENT.
[2019-10-13] MEDS: ENOXAPARIN SOD INJ 40 MG/0.4 ML SYR SC SCH (16:28)
--- NOTE | 2019-10-13 16:28 | NUR ---
SPOKE WITH PT ABOUT HOME WITH IV ABX PT HAS MCR PRIMARY AND AARP SECONDARY IF PT DOES HOME IV ABX SHE WILL HAVE A 500 DOLLAR CO-PAY PER WEEK IF SHE GOES TO OP INFUSION [employer] SHE WILL NOT HAVE TO PAY ANY OUT OF POCKET PT AND DISCUSSED AND ARE REQUESTING TO GO TO ACUTE REHAB ORDER FOR REHAB CHOICE LETTER SIGNED FOR [facility] FAXED TO [facility] AND PLACED IN PACKET AT DESK MOT: ACCEPTING PHYSICIAN ALISON VENCES [employer] JOHNNY BANKS CALL REPORT TO [phone] [facility] [address] [place] [id number]
[2019-10-13 16:33] VITALS: BP 122/43
[2019-10-13] MEDS ORDERED: CELECOXIB 200 MG CAP PO SCH (17:00)
--- NOTE | 2019-10-13 17:54 | NUR ---
PATIENT DISCHARGED TO [facility] IN STABLE CONDITION. PATIENT AND GATHERED PERSONAL BELONGINGS. PATIENT LEFT UNIT IN STRETCHER AND TRANSFERRED VIA EMS. NO S/S OF DISTRESS UPON DISCHARGE.
--- NOTE | 2019-10-14 05:27 | Discharge Summary ---
PRIMARY CARE PHYSICIAN: Dr. Robin Whiting. FINAL DISCHARGE DIAGNOSES: 1. 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 2. Hypertension. 3. Diabetes type 2. 4. High cholesterol. 5. History of gastroesophageal reflux disease. 6. Rheumatoid arthritis. CONSULTANTS: Dr. Tam Alonso, orthopedist. HISTORY: Per HPI. HOSPITAL COURSE: This is an 84-year-old female with history of right total knee arthroplasty about 10 days ago. She came in with an infection of the knee, underwent debridement of the knee and resection of arthroplasty With placement of temporary antibiotic. She was started on cefepime and vancomycin per Infectious Disease doctor. Drains were removed. Dressing intact. She is feeling much better today, vital signs stable, [facility]. We will continue on cefepime and vancomycin per ID recommendation. CONDITION AT DISCHARGE: Improved and improved. DISCHARGE MEDICATIONS: Please see medication reconciliation list. FOLLOWUP: Follow up with Dr. Alonso and Dr. Walls in 1-2 weeks. TIME SPENT: Total discharge time is 32 minutes. Dictated by MELVIN Sarah Omar Heller MD MY/MODL /[id number] cc: Robin Whiting
--- OUTSIDE RECORDS SUMMARY | 2019-11-24 19:50 | XMS REPORT | Summary of Care ---
Author Author [facility] Organization [facility] Address Unknown Phone Unavailable Encounter HQ Nidhintr_angel luis(FIN) [id number] Date(s): 01/23/15 - 01/23/15 [facility] [address] [place] [address]- Discharge Disposition: Home Attending Physician: Kelly Linder MD Vital Signs No data available for this section Problem List Condition Effective Dates Status Health Status Informan t Asthma(Confirmed) Resolved Allergies, Adverse Reactions, Alerts Substance Reaction Severity Status aspirin Active Catarase Active Demerol HCl Active Levaquin Active penicillins Active shellfish Active Medications No data available for this section Results No data available for this section Immunizations No data available for this section Procedures Procedure Date Related Diagnosis Body Site Procedure1 1Back surgery Social History Social History Type Response Alcohol Never, Previous treatment: None. Smoking Status Never smoker; Exposure to T obacco Smoke None; Cigarette Smoking Last 365 Days No; Reg Smoking Cessation Counseli ng No Assessment and Plan No data available for this section
--- OUTSIDE RECORDS SUMMARY | 2019-11-24 19:50 | XMS REPORT | Summary of Care ---
Author Author BETH Soliman M.A. Organization Unknown Address Unknown Phone Unavailable Care Team Providers Care Visual Merchandising Manager Name Role Phone BETO RANDALL M.D. Unavailable Unavailable Unavailable Unavailable Functional Status Name Dates Details Functional status health issues are not documented Status: Name Dates Details Cognitive status health issues are not d ocumented Status: Problems Name Dates Details Limb pain (729.5, M79.609) Status: Active Medications Name Dates Details Medications not documented Allergies and Adverse Reactions Name Dates Details aspirin (Allergy) Status: Active [id number] (Allergy) Status: Active Demerol TABS (Allergy) Status: Active Levaquin (Allergy) Status: Active Penicillins (Allergy) Status: Active Shellfish (Allergy) Status: Active Procedures Procedure Dates Details [U] XRAY KNEE 4 OR MORE VWS RIGHT [id number] Date: 05-Oct-2017 Immunization Name Dates Details Immunizations not documented Social History Name Dates Details Unknown if ever smoked Vital Signs Date Test Result Details [id number] Height 63 in Status: Weight 176.8 lb Status: Body Mass Index Calculated 31.32 kg/m2 Status: Body Surface Area Calculated 1.84 m2 Status: Results Date Description Value Details Results not documented Plan of Care Name Dates Details Planned Observations Planned Goals not documented Interventions Provided Labs/Procedures/Imaging* [U] XRAY KNEE 4 OR MORE VWS RIGHT [id number]; To Be Done: 07 Oct 2017 Instructions Name Dates Details Instructions not documented Encounters Appointment; BETO RANDALL M.D. Encounter Diagnosis: Problem not documented On: 07-Oct-2017 14:30
--- OUTSIDE RECORDS SUMMARY | 2019-11-24 19:50 | XMS REPORT | Summary of Care ---
Author Author [facility] Organization [facility] Address Unknown Phone Unavailable Encounter ALAN Villar(FIN) [id number] Date(s): 05/24/19 - 05/24/19 [facility] Outpatient Imaging [facility] [address], [address] [place], [place] [address] [phone] Discharge Disposition: Home or Self Care Attending Physician: Kelly Linder MD Referring Physician: Kelly Linder MD Vital Signs No data available for this section Problem List Condition Effective Dates Status Health Status Informan t Asthma(Confirmed) Resolved Allergies, Adverse Reactions, Alerts Substance Reaction Severity Status penicillins Active shellfish Active aspirin Active Catarase Active Levaquin Active Demerol HCl Active Medications No data available for this section Results No data available for this section Immunizations No data available for this section Procedures Procedure Date Related Diagnosis Body Site Status Procedure1 Completed 1Back surgery Social History Social History Type Response Alcohol Never, Previous treatment: None. Smoking Status Never smoker; Exposure to T obacco Smoke None; Cigarette Smoking Last 365 Days No; Reg Smoking Cessation Counseli ng No entered on: 07/28/14 Assessment and Plan No data available for this section
--- OUTSIDE RECORDS SUMMARY | 2019-11-24 19:50 | XMS REPORT | Continuity of Care Document ---
Author Author [facility] t Organization [facility] Address [address] [place] [id number] Phone Unavailable Care Team Providers Care Bead Flipper Name Role Phone MALACHI LAKE PCP MEHRAN OLIVEIRA Attphys Unavailable Alen LAKE MD Attphys Unavailable Bakair Linder Attphys CHARITO PINEDO Attphys Unavailable BETO RANDALL M.D. Attphys Unavailable Freddie PATEL Attphys Unavailable Bakari MONTALVO Attphys Unavailable Alison Man Attphys MEHRAN OLIVEIRA Admphys Unavailable Payers Payer Name Policy Type Policy Number Effective Date Expiration Date S alfredo AAR [id number] 2019 00:00:00 [facility] Medicare A & B [id number] 2000 00:00:00 [facility] Cdc Review Covid19 [id number] [facility] [place] [place] Problems Condition Name Condition Details Condition Category Status Onset Date Resolution Date Last Treatment Date Treating Clinician Comments Source Diabetes mellitus Diabetes Problem Active 2015-10-11 00:00:00 [facility] Fall Fall Problem Active 2015-10-11 00:00:00 [facility] Fracture of transverse process of thoracic vertebra Fr acture of transverse process of thoracic vertebra Problem Active 2015-10-11 00:00:00 [facility] Fracture, rib Fracture, rib Problem Active 2015-10-11 00:00:00 [facility] Hyponatremia Hyponatremia Problem Active 2015-10-11 00:00:00 [facility] Fracture of transverse process of lumbar vertebra Lumb ar transverse process fracture Problem Active 2015-10-11 00:00:00 [facility] SHOULDER/NECK PAIN SHOU LDER/NECK PAIN Active 07/28/2014 [facility] Diagnosis Active 2014-07-28 00:00:00 2014-07-28 23:45:00 [facility] Babak Limb pain Limb pain Problem Active [facility] Asthma (disorder) Asth ma (disorder) Resolved Problem 05/27/2019 [facility], OPID [place] Problem Resolved 2019-05-27 00:29:43 [facility] Babak V01.1 V01. 1 Active [facility] Active 2013-05-06 10:30:00 [facility] Babak UNK UNK Active [facility] Active 2015-01-23 13:40:00 [facility] Babak JOINT PAIN-HAND JOIN T PAIN-HAND Active [facility] Active 2015-01-23 13:40:00 [facility]: Cervical neck pain with evidence of disc disease Discharge Diagnosis: Cervical neck pain with evidence of disc disease 07/29/2014 07/31/2014 [facility] Problem 2015-0 4-04 05:00:00 2014-07-31 16:58:41 2014-07-31 16:58:41 [facility] Babak Allergies, Adverse Reactions, Alerts Allergy Name Allergy Type Status Severity Reaction(s) Onset Date Inacti ve Date Treating Clinician Comments Source Phenylbutazone Allergy to substance Active 2019-10-07 00:00 :00 [facility] clonidine HCl Allergy to substance Active 2017-05-06 00:00: 00 [facility] meperidine HCl Allergy to substance Active 2017-05-06 00:00 :00 [facility] Penicillin Allergy to substance Active 2017-05-06 00:00:00 [facility] Demerol TABS Allergy to drug (finding) Active [facility] Penicillins Allergy to drug (finding) Active [facility] Shellfish Allergy to substance (finding) Active [facility] aspirin Allergy to drug (finding) Active [facility] [id number] Allergy to drug (finding) Active [facility] Levaquin Allergy to drug (finding) Active [facility] aspirin aspirin Active [facility] Cat[facility]ase Catarase Active Destiny Victor Demerol HCl Demerol HCl Active [facility] Levaquin Levaquin Active Destiny Victor penicillins penicillins Active [facility] shellfish shellfish Active Mayur Hilliard Social History Social Habit Start Date Stop Date Quantity Comments Source Social History 2014-07-29 04:02:34 2014-07-29 04:02:34 Antoine Sepulvedaann Sex Assigned At 1935 00:00:00 1935 00:00:00 Female [facility] Medications Ordered Medication Name Filled Medication Name Start Date Stop Da te Current Medication? Ordering Clinician Indication Dosage Frequency Signature (SIG) Comments Components Source Enoxaparin Sodium (Lovenox) 40 Mg/0.4 Ml INJ Enoxapari n Sodium (Lovenox) 40 Mg/0.4 Ml INJ 2019-10-13 13:04:00 Yes 40 Daily@17 [facility] Hydrocodone/Apap 5MG-325MG Hydrocodone/Apap 5MG-325MG 2019-10-13 13:0 4:00 Yes 1 Every 4 Hours as needed for Moderate Patrice n (4-6) [facility] Hydrocodone/Apap 7.5MG-325MG Hydrocodone/Apap 7.5MG-325MG 2019-09-26 8 13:04:00 Yes 1 Every 4 Hours as needed for Severe Pain (7-10) [facility] Tramadol Hcl (Ultram) 50 Mg TABLET Tramadol Hcl (Ultram) 50 Mg TABLET 2015-10-15 17:45:00 2019-10-07 00:00:00 No 50 Three Times A Day as needed for Pain And Temperature [facility] Morphine 2014-07-29 07:06:00 No 4 mg, Route: IVP, Drug form: INJ, ONCE, Dosing Weight 79.545, kg, Priority: STAT, Start date: 07/29/14 2:06:00, Stop date: 07/29/14 2:06:00 Antoine garrido Ondansetron 2014-07-29 04:06:00 No Notes: (Same as: Lebron) MEDICATION WASTE Product Size: 4 mg Product Wasted: ___ mg Antoine Hilliard Morphine 2014-07-29 04:06:00 No Not es: (Same as:MORPhine Sulfate) Antoine Babak Saline Flush 0.9% 2014-07-29 04:06:00 No Notes: preservative free. [facility] Abatacept (Orencia) 87.5 Mg/0.7 Ml SYRINGE Abatacept ( Orencia) 87.5 Mg/0.7 Ml SYRINGE Yes Monthly [facility] Alendronate Sodium (Fosamax) 70 Mg TABLET Alendronate Sodium (Fosamax) 70 Mg TABLET Yes 35 Weekly [facility] Amlodipine Besylate Amlodipine Besylate Yes 10 Daily [facility] Budesonide/Formoterol Fumarate (Symbicor t 160-4.5 Mcg Inhaler) 10.2 Gm HFA.AER.AD Budesonide/Formoterol Fumarate (Symbicor t 160-4.5 Mcg Inhaler) 10.2 Gm HFA.AER.AD Yes As Needed [facility] Bupropion Hcl (Bupropion Xl) 150 Mg TAB.ER.24H Bupropi on Hcl (Bupropion Xl) 150 Mg TAB.ER.24H Yes [address] [facility] [place] [place] Cyclobenzaprine Hcl Cyclobenzaprine Hcl Yes 10 Daily [facility] Fexofenadine Hcl Fexofenadine Hcl Yes Daily [facility] Folic Acid Folic Acid Yes 1 Daily [facility] Glipizide (Glipizide Er) 5 Mg TAB.ER.24 Glipizide (Glipizide Er) 5 Mg TAB.ER.24 Yes Daily [facility] Hydralazine Hcl Hydralazine Hcl Yes 50 Daily [facility] Ipratropium/Albuterol Sulfate (Combivent Respimat Inha l [place]) 4 Gm AER.W.ADAP Ipratropium/Albuterol Sulfate (Combivent Respimat Inhal [place]) 4 Gm AER.W.ADAP Yes 4 As Needed [facility] Irbesartan Irbesartan Yes 300 Daily [facility] Metformin Hcl Metformin Hcl Yes 500 Twice A Day [facility] Methotrexate Sodium (Methotrexate) 2.5 Mg TABLET Metho trexate Sodium (Methotrexate) 2.5 Mg TABLET Yes 2.5 Weekly [facility] Montelukast Sodium Montelukast Sodium Yes 10 Da luca [facility] Nebivolol Hcl (Bystolic) 5 Mg TABLET Nebivolol Hcl (Bystolic) 5 Mg TABLET Yes 5 Three Times A Day [facility] [place] [place] Pantoprazole Sodium (Protonix) 40 Mg TABLET. Pantopr azole Sodium (Protonix) 40 Mg TABLET. Yes 40 Daily [facility] Pro Air Pro Air Yes As Needed [facility] Simvastatin Simvastatin Yes 40 Today At 9:00PM [facility] Albuterol/Ipratropium (Combivent Inhaler) 14.7 Gm AERO Albuterol/Ipratropium (Combivent Inhaler) 14.7 Gm AERO 2015-10-15 00:00:00 No 1 As Needed [facility] Amlodipine Besylate Amlodipine Besylate 2015-10-15 00:00:00 No 1 Daily [facility] Azelastine Hcl (Astepro) 137 Mcg/0.137 Ml SPRAY.PUMP A zelastine Hcl (Astepro) 137 Mcg/0.137 Ml SPRAY.PUMP 2015-10-15 00:00:00 No 1 As Needed [facility] Folic Acid Folic Acid 2015-10-15 00:00:00 No 1 Bettie ly [facility] Losartan Potassium Losartan Potassium 2015-10-15 00:00:00 No 1 Daily [facility] Methotrexate Sodium (Methotrexate) 2.5 Mg TAB.DS.PK Me thotrexate Sodium (Methotrexate) 2.5 Mg TAB.DS.PK 2015-10-15 00:00:00 No 6 Weekly [facility] Nebivolol Hcl (Bystolic) 2.5 Mg TABLET Nebivolol Hcl (Bystolic) 2.5 Mg TABLET 2015-10-15 00:00:00 No 1 Daily [facility] Nisoldipine Nisoldipine 2015-10-15 00:00:00 No 1 D aily [facility] Pantoprazole Sodium (Protonix) 40 Mg TABLET. Pantopr azole Sodium (Protonix) 40 Mg TABLET. 2015-10-15 00:00:00 No 1 Daily [facility] Prednisone Prednisone 2015-10-15 00:00:00 No 1 Bettie ly [facility] Salmeterol Xinafoate/Fluticasone (Advair 500/50*) 1 Ea AER Salmeterol Xinafoate/Fluticasone (Advair 500/50*) 1 Ea AERP 2015-10-15 00:00:00 N o 1 As Needed [facility] Warfarin Sodium Warfarin Sodium 2015-10-15 00:00:00 No 1 Daily [facility] Vital Signs Vital Name Observation Time Observation Value Comments Source Body Temperature 2019-10-13 16:33:00 97.7 [degF] [facility] Weight 2019-10-11 15:12:00 164 [lb_av] [facility] BMI (Body Mass Index) 2019-10-11 15:12:00 29.1 kg/m2 [facility] Height 2017-10-07 15:45:00 63 [in_us] [facility] Weight 2017-10-07 15:45:00 176.8 [lb_av] [facility] Body Mass Index Calculated 2017-10-07 15:45:00 31.32 kg/m2 [facility] Respitory Rate 2014-07-29 08:36:00 Memori al Babak Systolic (mm Hg) 2014-07-29 08:36:00 Mayur delmi Babak Diastolic (mm Hg) 2014-07-29 08:36:00 Mem orial Babak Temperature Oral (F) 2014-07-29 08:36:00 98.1 F [facility] Heart Rate 2014-07-29 08:36:00 [facility] Temperature Oral (F) 2014-07-29 07:36:00 98.4 F [facility] Respitory Rate 2014-07-29 07:36:00 [facility] Heart Rate 2014-07-29 07:36:00 [facility] Systolic (mm Hg) 2014-07-29 07:36:00 Mayur [facility] [place] Diastolic (mm Hg) 2014-07-29 07:36:00 Mem orial Babak Respitory Rate 2014-07-29 05:45:00 [facility] Heart Rate 2014-07-29 05:45:00 [facility] Systolic (mm Hg) 2014-07-29 05:45:00 Mayur rial Babak Diastolic (mm Hg) 2014-07-29 05:45:00 [facility] [place] Temperature Oral (F) 2014-07-29 05:45:00 98.0 F [facility] Height 2014-07-29 03:38:00 162.56 cm [facility] Weight 2014-07-29 03:38:00 [facility] BMI Calculated 2014-07-29 03:38:00 [facility] Procedures Procedure Date / Time Performed Performing Clinician [facility] e X-ray of chest, two views 2019-09-30 00:00:00 [facility] [U] XRAY KNEE 4 OR MORE VWS RIGHT [id number] 2017-10-05 00:00:00 [facility] Procedure<sup>1</sup> [facility] Encounters Start Date/Time End Date/Time Encounter Type Admission Type Attendi [facility] Care Department Encounter ID Source 2019-09-30 11:26:00 2019-09-30 11:26:00 Registered Clinic 3 JAYA TUCKER [facility] [id number] [facility] 2019-09-22 12:40:00 2019-09-22 12:40:00 Registered Clinic [facility] [id number] [facility] 2019-05-24 11:30:00 2019-05-24 23:59:00 Outpatient Freddie Linder MHOIB OIB [id number] 2017-10-07 14:30:00 2017-10-07 14:30:00 Appointment; RANDALLBETO M.D. HUANG, EDDIE, M.D. [facility] [id number] [facility] 2017-06-21 21:43:00 2017-06-21 23:53:00 Departed Emergency Room ER ALISON PATEL [facility] [id number] [facility] 2017-05-06 21:44:00 2017-05-07 00:17:00 Departed Emergency Room ER NIKA MONTALVO [facility] [id number] [facility] 2016-09-22 11:22:00 2016-09-22 12:57:00 Departed Emergency Room [facility] [id number] [facility] 2016-09-03 13:41:00 2016-09-03 13:41:00 Registered Clinic [facility] [id number] [facility] 2015-01-23 13:02:00 2015-01-23 23:59:00 Outpatient Kelly Linder [facility] [id number] 2014-07-28 22:30:00 2014-07-29 04:00:00 Outpatient Tr Man PATY IE [id number] Results Test Description Test Time Test Comments Results Result Comments Source Capillary blood glucose measurement by glucometer (mas s/volume) 2019-10-13 11:01:00 Test Item Bedside Glucose (test code = 37187-3) 129 70-120 Meter ID: [id number]manBlood hemoglobin measurement (moles/volume)2019-10-13 04:54:00* Test Item Value Reference Range Interpretation Comments Hemoglobin (test code = 71558-2) 8.1 12.0-16.0 [facility] hematocrit (volume fraction)2019-10-13 04:54:00* Test Item Value Reference Range Interpretation Comments Hematocrit (test code = 4544-3) 25.2 34.2-44.1 [facility] X[facility] LINE [id number] 17:20:00 [facility] [place] [address] Patient Name: BETH JASSO MR #: [id number] : 1935 Age/Sex: 84/F Req #: [id number] [facility] Physician: MEHRAN OLIVEIRA MD Ordered by: WATSON MITCHELL MD Report #: [id number] Location: MED/SURG Room/Bed: [facility] Procedure: [id number] DX/CHEST XRAY LINE PLACEMENT Exam Date: 10/12/19 Exam Time: 1707 REPORT STATUS: Signed Examination: Si ngle AP view of the chest. COMPARISON: Chest 2 views 09/30/2019 INDICATI ON: Line placement IMPRESSION: 1. Lines and Tubes: Interval plac ement of right-sided PICC line with distal. Projecting in the proximal to mid SVC. 2. Lungs are grossly clear. No consolidation or effusion. 3. Mild enl argement of the cardiac silhouette. Mild central venous congestion. Stable chino cency with air-fluid level in the retrocardiac region, likely reflecting hiata l hernia 4. No acute bony abnormalities. Marked bilateral glenohumeral joint degenerative changes. Signed by: Dr. Sebastian Bal M.D. on 10/12/2019 5:22 PM Dictated By: SEBASTIAN BAL MD 21 Transcribed By: NATIVIDAD on 10/12/191721 BOOK SALESMAN Y TO: WATSON MITCHELL MD Serum or plasma trough vancomycin level at trough (mass/volume)2019-10-12 10:20:00* Test Item Value Reference Range Interpretation Comments Vancomycin Level Trough (test code = 4092-3) 21.2 5.0-10.0 Results repeated and called to Wilma Baer at 1045 on 10/12/19 by Vidal Ruiz. Read back and verified.[facility]-2 [id number] 15:20:00 [facility] [address] [address] Patient Name: BETH JASSO MR #: [id number] : 1935 Age/Sex: 84/F Req #: [id number] Adm Physician: MEHRAN OLIVEIRA MD Ordered by: MEHRAN OLIVEIRA MD Report #: [id number] Location: MED/SURG Room/Bed: [facility] Procedure: [id number] DX/KNEE RIGHT 1-2 VIEWS Exam Date: 10/11/19 Exam Time: 1445 REPORT STATUS: Signed EXAMINATION: KNEE RIGHT 1-2 VIEWS INDICATION: Postoperative COMPARISON: None FINDINGS: AP and lateral portable radiographs of the right knee demonstr ate removal of presumed prior right knee arthroplasty hardware and placement o f antibiotic spacer. Alignment appears near-anatomic. Surgical drain in place. Small amount of subcutaneous soft tissue emphysema. Surgical skin kyle ove rlie the anterior knee. IMPRESSION: Postoperative findings of the righ t knee as above. Signed by: Layne Mixon MD on 10/11/2019 3:22 PM Dict ated By: LAYNE MIXON MD 1522 Transcribed By: NATIVIDAD on 10/11/19 1522 COPY TO: MEHRAN OLIVEIRA MD Fluoroscopic procedure less than one hour [id number] 11:25:00* Test Item Value Reference Range Interpretation Comments Coronavirus (PCR) (test code = Coronavirus (PCR)) NOT DETECTED NOTD ETECTED SARS-COV-2 (COVID19), HIGHRISK, RT-PCRNegative results do not preclude SARS-CoV- 2 infection and should not be used as the sole basis for patient management deci sions. Negative results must be combined with clinical observations, patient his tory, and epidemiological information. Optimum specimen types and timing for pea k viral levels during infections caused by SARS-CoV-2 have not been determined. Collection of multiple specimens ot types of specimens may be necessary to detec t virus. Improper specimen collection and handling, sequence variability under p rimers/probes, or organism present below the limit of detection may lead to fals e negative results. Positive and negative predictive values of testing are highl y dependent on prevalance. False negative test results are more likely when prev alence is high.The expected result is negative (not detected).The SARS-CoV-2 karen t is intended for the qualitative detection of nucleic acid from SARS-CoV-2 in n asopharyngeal and oropharyngeal swab samples from patients who meet COVID-19 cli nical and or epidemiological criteria. For lower respiratory tract specimens, th e assay is submitted for authoriztion by FDA under an Emergency Use Authorizatio n (EUA). Testing methodology is real time RT-PCR. If received as separate collec tion devices, nasopharygeal and oropharyngeal specimens are combined for analysi s. Additional specimens may be split to a separate accession for analysi and rep orting as this test includes a single unit of service.Test results must be corre lated with clinical presentation and evaluated in the context of other laborator y and epidemiologic data. Test performance can be affected because the epidemiol ogy and clinical spectrum of infection caused by SARS-CoV-2 is not fully known. For example, the optimum types of specimens to collect and when during the cours e of infection these specimens are most likely to contain detectable viral RNA m ay not be known.This test has not been Food and Drug Administration (FDA) cleare d or approved and has been authorized by FDA under an Emergency Use Authorizatio n (EUA). The test is only authorized for the duration of the declaration that ci rcumstances exist justifying the authorization of emergency use of in vitro diag nostic tests for detection and/or diagnosis of SARS-CoV-2 under section 564(b) o f the Act, 21 U.S.C. section 360bbb-3(b)(1), unless the authorization is termina jolie or revoked sooner. [facility] are certified under the [facility] Laboratory Improvement Amendments of 1988 (CLIA), 42 U.S.C. section 263a , to perform high complexity tests.Testing performed by [facility] [address] [phone] Director: Gokul Gilbert M.D.CLIA # [id number] Health [facility]manBlcuyuna [facility] leukocytes automated count (number/volume)2019-10-07 11:05:00* Test Item Value Reference Range Interpretation Comments White Blood Count (test code = 6690-2) 9.65 4.8-10.8 [facility] erythrocytes automated count (number/volume)2019-10-07 11:05:00* Test Item Value Reference Range Interpretation Comments Red Blood Count (test code = 789-8) 3.74 3.6-5.1 [facility]man[facility] erythrocyte mean corpuscular [id number] 11:05:00* Test Item Value Reference Range Interpretation Comments Mean Corpuscular Volume (test code = 787-2) 88.5 81-99 [facility] mean corpuscular hemoglobin (mass per erythrocyte)2019-10-07 11:05:00* Test Item Value Reference Range Interpretation Comments Mean Corpuscular Hemoglobin (test code = 785-6) 29.1 28-32 [facility] erythrocyte mean corpuscular hemoglobin concentration measurement (mass/volume)2019-10-07 11:05:00* Test Item Value Reference Range Interpretation Comments Mean Corpuscular Hemoglobin Concent (test code = 786-4) 32.9 31-35 [facility]manRDW [id number] 11:05:00* Test Item Value Reference Range Interpretation Comments Red Cell Distribution Width (test code = 27195-7) 12.8 11.7 -14.4 [facility] blood platelet count (count/volume)2019-10-07 11:05:00* Test Item Value Reference Range Interpretation Comments Platelet Count (test code = 777-3) 460 140-360 [facility] segmented neutrophil count as percentage of total [id number] 11:05:00* Test Item Value Reference Range Interpretation Comments Neutrophils (%) (Auto) (test code = 36678-6) 76.5 38.7-80.0 [facility] lymphocyte count as percentage ot total [id number] 11:05:00* Test Item Value Reference Range Interpretation Comments Lymphocytes (%) (Auto) (test code = 736-9) 12.5 18.0-39.1 [facility] monocyte count as percentage of total [id number] 11:05:00* Test Item Value Reference Range Interpretation Comments Monocytes (%) (Auto) (test code = 5905-5) 9.3 4.4-11.3 [facility]manAutcritical [facility] hospitaled blood eosinophil count as percentage of total qjmgcivqqu3965-15-34 11:05:00* Test Item Value Reference Range Interpretation Comments Eosinophils (%) (Auto) (test code = 713-8) 0.7 0.0-6.0 [facility]Aut[facility] hospitaled blood basophil count as percentage of total [id number] 11:05:00* Test Item Value Reference Range Interpretation Comments Basophils (%) (Auto) (test code = 706-2) 0.6 0.0-1.0 [facility]manFluoroscopic procedure less than one hour [id number] 11:05:00* Test Item Value Reference Range Interpretation Comments IM GRANULOCYTES % (test code = IM GRANULOCYTES %) 0.4 0.0- 1.0 [facility] neutrophil count 2019-10-07 11:05:00* Test Item Value Reference Range Interpretation Comments Neutrophils # (Auto) (test code = 751-8) 7.4 2.1-6.9 [facility] lymphocytes count (number/volume) 2019-10-07 11:05:00* Test Item Value Reference Range Interpretation Comments Lymphocytes # (Auto) (test code = 50190-8) 1.2 1.0-3.2 [facility] monocytes automated count (number/volume)2019-10-07 11:05:00* Test Item Value Reference Range Interpretation Comments Monocytes # (Auto) (test code = 742-7) 0.9 0.2-0.8 [facility] blood eosinophil count 2019-10-07 11:05:00* Test Item Value Reference Range Interpretation Comments Eosinophils # (Auto) (test code = 711-2) 0.1 0.0-0.4 [facility] blood basophil count (count/volume)2019-10-07 11:05:00* Test Item Value Reference Range Interpretation Comments Basophils # (Auto) (test code = 704-7) 0.1 0.0-0.1 [facility]manFluoroscopic procedure less than one hour [id number] 11:05:00* Test Item Value Reference Range Interpretation Comments Absolute Immature Granulocyte (auto (karen t code = Absolute Immature Granulocyte (auto) 0.04 0-0.1 [facility] sodium measurement (moles/volume)2019-10-07 11:05:00* Test Item Value Reference Range Interpretation Comments Sodium Level (test code = 2951-2) 132 136-145 [facility] or plasma potassium measurement (moles/volume)2019-10-07 11:05:00* Test Item Value Reference Range Interpretation Comments Potassium Level (test code = 2823-3) 3.9 3.5-5.1 [facility] or plasma chloride measurement (moles/volume)2019-10-07 11:05:00* Test Item Value Reference Range Interpretation Comments Chloride Level (test code = 2075-0) 97 98-107 [facility] Systemerum or plasma carbon dioxide, total measurement (moles/volume)2019-10-07 11:05:00* Test Item Value Reference Range Interpretation Comments Carbon Dioxide Level (test code = 2028-9) 24 22-29 [facility] Systemerum or plasma anion [id number] 11:05:00* Test Item Value Reference Range Interpretation Comments Anion Gap (test code = 46587-9) 14.9 8-16 [facility] or plasma urea nitrogen measurement (mass/volume)2019-10-07 11:05:00* Test Item Value Reference Range Interpretation Comments Blood Urea Nitrogen (test code = 3094-0) 13 7-26 [facility]um or plasma creatinine measurement (mass/volume)2019-10-07 11:05:00* Test Item Value Reference Range Interpretation Comments Creatinine (test code = 2160-0) 0.86 0.57-1.11 [facility] urea nitrogen/creatinine mass rtfdv1082-06-68 11:05:00* Test Item Value Reference Range Interpretation Comments BUN/Creatinine Ratio (test code = 3097-3) 15 6-25 [facility]manEstimated glomerular filtration rate (GFR) wcylzjspkcwag8123-15-78 11:05:00* Test Item Value Reference Range Interpretation Comments Estimat Glomerular Filtration Rate (test code = 709178373) > 60 >60 Ranges were taken from the National Kidney Disease Education Program and the [facility] Foundation literature.Reference ranges:60 or greater: Asqquf10-49 ( for 3 consecutive months): Chronic kidney disease 15 or less: Kidney failureTexas Health KaufmanGlucose wozdxrkivqu4785-44-20 11:05:00* Test Item Value Reference Range Interpretation Comments Glucose Level (test code = WFR8489) 202 74-118 [facility] or plasma calcium measurement (mass/volume)2019-10-07 11:05:00* Test Item Value Reference Range Interpretation Comments Calcium Level (test code = 78672-8) 9.3 8.4-10.2 [facility]manCHEST 2 CCYKF1261-51-91 13:57:00 [facility] [address] [address] Patient Name: BETH JASSO MR #: [id number] : 1935 Age/Sex: 84/F Req #: [id number] Adm Physician: Ordered by: JAYA TUCKER, MALACHI Lowry MD Report #: [id number] Location: LILI garcia/Bed: Procedure: [id number] DX/CHEST 2 VIEWS Exam Date: 09/30/19 Exam Time: 1230 REPORT STATUS: Signed X-ray chest PA and l ateral view Comparison: None. History: Preop for surgery Findings : Central airways unremarkable. Heart size borderline normal. Atherosclerotic aorta. No pleural effusion or pneumothorax. Lung smith grossly unremarkable. Retrocardiac lucency suggesting presence of a hiatal hernia. Visualized skelet al structures show degenerative changes and mild thoracic kyphosis. Upper abdo men unremarkable. Impression: No acute cardiopulmonary disease. Possible hi atal hernia. Signed by: Liban Washington MD on 09/30/2019 1:59 PM Dictat ed By: LIBAN WASHINGTON MD 1359 COPY TO: [place] Erythrocyte sedimentation rate by Westergren hvidek2933-05-97 13:28:00* Test Item Value Reference Range Interpretation Comments Erythrocyte Sedimentation Rate (test code = 4537-7) 26 0- 20 [facility] or plasma C reactive protein measurement (mass/volume)2019-09-22 13:28:00* Test Item Value Reference Range Interpretation Comments C-Reactive Protein (test code = 1988-5) 9 0-10 Performed at: - [facility] [id number] Director: Toi Meyer MD, Phone: [phone] Health KaufmanRENAL SCAN W/LCANN2749-81-45 11:42:00 [facility] [address] [address] Patient Name: BETH JASSO MR #: [id number] : 1935 Age/Sex: 83/F Req #: [id number] Adm Physician: Ordered by: CHARITO PINEDO MD Report #: [id number] Location: ME Room/Bed: Procedure: [id number] NM/RE NAL SCAN W/LASIX Exam Date: Exam Time: REPORT STATUS: Signed Renal Scan with Lasix Washout Clinical information: Congenital occlusion of ureteropelvic juncti on Comparison: Most recent prior renal scan with Lasix 09/03/2016 Techn ique: Following intravenous administration of 11 mCi of Tc-99m MAG3, dynamic i mages of the kidneys in the posterior projection were obtained through 40 tiffanie karen. Lasix 40 mg was administered intravenously at 10 minutes post injection of the tracer. Report: Left kidney: Perfusion of the left kidney is pr ompt. The kidney has a normal reniform shape. Extraction of tracer from the blood pool is normal. Clearance of tracer from the renal parenchyma is prompt . The pelvicalyceal system is not dilated although the renal pelvis is promin ent and slightly more dilated than on the. Mildly increased pooling of tracer is seen within the pelvis. No net drainage of tracer from the pelvicalyceal system is seen prior to administration of Lasix. Washout of tracer from the p elvicalyceal system following administration of Lasix is rapid with a T-1/2 of 10 minutes (normal less than 15 minutes). No significant stasis of tracer is seen within the left ureter. Right kidney: Perfusion to the right kidney is prompt. The right kidney has a normal reniform shape. Extraction of trac er by the renal parenchyma is normal. Clearance of tracer from the renal paren chyma is prompt. The pelvicalyceal system is not dilated although the renal p robin is slightly more prominent than prior. Mildly increased pooling of trac er is seen within the renal pelvis. No net drainage of tracer from the pelvic alyceal system is seen prior to administration of Lasix. Washout of tracer fr om the pelvicalyceal system following administration of Lasix is adequate with a T-1/2 of 8 minutes (normal less than 15 minutes). No significant stasis of tracer is seen within the right ureter. Differential renal function: The left kidney contributes 50% of total renal function and the right kidney contr ibutes 50% (normal 43-57%), previously left 47% and right 53%, which is not a statistically significant difference. Impression: 1. The function of the left kidney is generally normal. No hydronephrosis is present although th e renal pelvis is prominent. No physiologically significant obstruction of th e renal collecting system is present. The appearance of the kidney and the wa shout pattern are unchanged from the prior study. The slightly rivera renal p robin compared to prior likely reflects hydration status. 2. The function of the right kidney is generally normal. No hydronephrosis is present althou gh the renal pelvis is prominent. No physiologically significant obstruction o f the renal collecting system is present. The appearance of the kidney and th e washout pattern are unchanged from the prior study. The slightly rivera lisset al pelvis compared to prior likely reflects hydration status. 3. The diff erential renal function is preserved. Signed by: Dr. Bhupinder Reddy M.D. 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 Recent urinary incontinence. Christel hnique: Following intravenous administration of 10 mCi of Tc-99m MAG3, dynamic images of the kidneys in the posterior projection were obtained through 40 mi nutes. Lasix 40 mg was administered intravenously at 10 minutes post injectio n of the tracer. Report: Left kidney: Perfusion of the left kidney is prompt. The kidney has a normal reniform shape. Extraction of tracer from th e blood pool is normal for age. Clearance of tracer from the renal parenchyma is prompt. No caliectasis but the renal pelvis is mildly dilated.. Increase d pooling of tracer is seen in the renal pelvis. No net drainage of tracer fr om the pelvicalyceal system is seen prior to administration of Lasix. Washout of tracer from the pelvicalyceal system following administration of Lasix is rapid with a T-1/2 of 10 minutes (normal less than 15 minutes). No significan t stasis of tracer is seen within the left ureter. Right kidney: Perfusio n to the right kidney is prompt. The right kidney has a normal reniform shape . The right kidney is smaller than the left kidney. Extraction of tracer by t he renal parenchyma is normal for age. Clearance of tracer from the renal pare nchyma is prompt. No dilated calices but the renal pelvis is mildly dilated. Increased pooling of tracer is seen within the renal pelvis. No net drainag e of tracer from the pelvicalyceal system is seen prior to administration of L asix. Washout of tracer from the pelvicalyceal system following administratio n of Lasix is rapid with a T-1/2 of 10 minutes (normal less than 15 minutes). No significant stasis of tracer is seen within the right ureter. Differen tial renal function: The left kidney contributes 55% of total renal function a nd the right kidney contributes 45% (normal 43-57%). Impression: 1. T he function of the left kidney is generally normal for patient's age. The lisset al pelvis is mildly dilated. No physiologically significant obstruction of th e renal collecting system is present. 2. The function of the right kidney i s generally normal for patient's age. The smaller size of the right kidney com pared to the left accounts for the differential function of 45%. The renal pe lvis is mildly dilated. No physiologically significant obstruction of the stephan l collecting system is present. 3. The differential renal function is pre served. Signed by: Dr. Bhupinder Reddy M.D. on 10/30/2017 6:45 PM Dictate d By: BHUPINDER REDDY MD 44 Transcribed By: NATIVIDAD on 10/30/171844 COPY TO: CHARITO PINEDO MD CARDIAC TDBYVCB5028-97-51 05:36:001.2[facility] 2014-07-29 05:36:00<0.02[facility] SHBHVOA3638-91-92 05:36:20413 [facility] IDHFTEW5243-46-49 05:36:001.6[facility] KNZQHSPYPWEA1107-81-44 05:36:0094[facility] BfxxvhlPQWYWMUJJBTA6533-31-39 05:36:00 8.9[facility] UnsxsnuLRMFXHIFHXBM8458-12-96 05:36:65443Loxlaukz [facility] CRRNWOFVQIPS2373-74-88 05:36:004.8[facility] UtmnrhaICKMNACTAJFD3628-63-43 05:36:003.2[facility] DqgqkwcJOQNFHVJOQAV9238-48-03 05:36:001.2[facility] JZMRXVUMFNOK8082-75-73 05:36:004.0[facility] WhetgtsWWFSRVKYJHVL3165-81-79 05:36:0022[facility] TbiwlgdVCSKIDDEGQQU8667-06-18 05:36:0013.8[facility] VJCREWTOHSQE0169-43-57 05:36:000.4[facility] VbwcysoHYEAKJNUPYQX5852-58-92 05:36:0017[facility] TcmbbmuKOMBUSMRFWND1475-23-16 05:36:0029[facility] CXLVYEVIPSDJ9875-65-80 05:36:0066[facility] OszuyqzVGIMUVVRTQIS7379-92-80 05:36:00 61[facility] UaxafigZSIIUNTFQWYY1603-64-95 05:36:000.9[facility]annELECTROLYTES 2014-07-29 05:36:0025[facility] QcbgmjtSIZCNCFURBRD1589-78-28 05:36:007.2[facility] DxfzyphJYBEAGKIVLES5066-74-17 05:36:0085[facility] GnhsajuQOTBIANTVGRI4142-66-29 05:36:0015[facility] QoffsuoKOVRPRNHQV1511-76-54 05:36:000.1[facility] GIVKPKFRWV0963-92-77 05:36:000.1[facility] QqlzixtZDNQILTWOM2420-81-69 05:36:008.1 [facility] CwkgypmTRNKNGKPIG2364-61-85 05:36:000.9[facility]annHEMATOLOGY 2014-07-29 05:36:001.6[facility] PpmkdmwKUGVNUMUCB4504-27-26 05:36:001.0[facility] NtvwsrgUOTFUAMAAK7472-78-00 05:36:001.3[facility] EcmdrxrCSWQALIMLJ4231-31-21 05:36:008.3[facility] YcdgswcENBPPMOMFQ9661-35-25 05:36:0014.5[facility] DKVWFMVEMS0841-68-22 05:36:0074.9[facility] EkuwkykBLPXGGPGZX5675-64-18 05:36:00 276[facility] LcrgoovIKBCIRFZDV2144-75-14 05:36:009.1[facility]annHEMATOLOGY 2014-07-29 05:36:0010.8[facility] AgvcpmtZDUTRPQZOG6066-30-49 05:36:0012.2[facility] DphydciOZVLBXEFXC3572-25-70 05:36:004.03[facility] RlcazylIDAYYQSDJX8047-33-12 05:36:0036.7[facility] VslcgybAKJPHYNSOL9660-06-99 05:36:00* Test Item Value Reference Range Interpretation Comments MCH (test code = MCH) 30.4 pg 27.0-31.0 [facility] DyywdggXNAVQFKOJW8930-50-24 05:36:0091.0[facility]annHEMATOLOGY 2014-07-29 05:36:0014.4[facility] SdneqsnZLVNQLYFEO7604-66-66 05:36:0033.4[facility]annCT CERVICAL SPINE WO [address] [address] Patient Name: BETH JASSO MR #: [id number] : 1935 Age/Sex: 82/F Req #: [id number] Adm Physician: Ordered by: ALISON PATEL MD Report #: [id number] Location: ER Room/Bed: Procedure: [id number] CT/CT CERVICAL SPINE WO E xam Date: 06/21/17 Exam Time: 2305 REPORT STATU S: Signed EXAMINATION: Head and cervical spine CT without contrast. HI STORY: Status post fall, head trauma COMPARISON: Head CT on 05/06/2017 TECHNI QUE: Multidetector axial images were obtained without contrast from the forame n magnum to the vertex and through the cervical spine. The images were reconst ructed using brain and bone algorithms. Thin section brain images were reform atted into coronal and sagittal planes. HEAD CT FINDINGS: Skull: No lytic or blastic lesions. No fractures. 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 No mass, hemorrhage or CT evidence of acut e vascular insult. Brain volume: Normal for age. Ventricles: No hydrocephalus or displacement. Arteries: No density suggestive of thro mbus. Dural sinuses: No abnormal density. Extra-axial spaces: No abnormal density. Foramen magnum: No mass, Chiari malformation, or basi lar invagination. Sella: No obvious mass. Paranasal/mastoid sin uses: Imaged portions unremarkable. CERVICAL SPINE CT FINDINGS: Alig nment:Reversal of the cervical lordosis. Age indeterminate likely chronic and degenerative anterolisthesis at C2-C3 and C3-C4 anterolisthesis at C7-T1.. Soft tissues: Normal. Vertebrae: Normal height and density. No acute f racture, infection or neoplasm. Degenerative changes: C1-C2: Dege nerative changes without stenosis. C2-C3: Facet arthrosis without stenosis. Minimal anterolisthesis. C3-C4: Disc osteophyte compresses formation, unco vertebral and facet arthrosis minimally in the right. Moderately severe right foraminal stenosis. Minimal anterolisthesis. C4-C5: Disc osteophyte compl ex formation, uncovertebral and facet arthrosis minimally on the right. Modera te right foraminal stenoses.. C5-C6: Disc osteophyte complex formation, patricio ateral uncovertebral and facet arthrosis. Moderate canal and bilateral foramin al stenoses C6-C7: Disc osteophyte compresses formation, bilateral uncovert ebral anterolisthesis and facet arthrosis. Moderate spinal canal and severe fo raminal stenosis worst on the right. C7-T1: Bilateral facet arthrosis wit hout significant stenoses. IMPRESSION: Head CT: 1. No acute intra cranial hemorrhage. Unchanged from head CT on 05/06/2017 2. Stable mild chroni c microvascular ischemic changes. Cervical spine CT: 1. No acute frac tures or dislocations. 2. Chronic degenerative changes as described. Note: Acute post traumatic spinal cord, vascular or ligamentous injury cannot adequately be assessed with CT. Signed by: Dr. Malik Ramos M.D. on 06/21/19 11:43 PM Dictated By: MALIK RAMOS MD 2646 Transcribed By: NATIVIDAD on 06/21/17 COPY T O: ALISON PATEL MD CT BRAIN WO [facility] [address] [address] Patient Name: BETH JASSO MR #: [id number] : 1935 Age/Sex: 82/F Req #: [id number] Adm Physician: Ordered by: ALISON PATEL MD Report #: [id number] Location: ER Room/Bed: Procedure: [id number] CT/CT BRAIN WO Exam Date: 06/21/17 Exam Time: 2305 REPORT STATUS: Signed EXAMINATION: Head and cervical spine CT without contrast. HISTORY: St atus post fall, head trauma COMPARISON: Head CT on 05/06/2017 TECHNIQUE: Mult idetector axial images were obtained without contrast from the foramen magnum to the vertex and through the cervical spine. The images were reconstructed us ing brain and bone algorithms. Thin section brain images were reformatted int o coronal and sagittal planes. HEAD CT FINDINGS: Skull: No lytic or blastic lesions. No fractures. Parenchyma: Unchanged mild chronic micro vascular ischemic changes. No mass, hemorrhage or CT evidence of acute vascula r insult. Brain volume: Normal for age. Ventricles: No hydrocep halus or displacement. Arteries: No density suggestive of thrombus. Dural sinuses: No abnormal density. Extra-axial spaces: No abnormal density. Foramen magnum: No mass, Chiari malformation, or basilar invag ination. Sella: No obvious mass. Paranasal/mastoid sinuses: Annie ged portions unremarkable. CERVICAL SPINE CT FINDINGS: Alignment:Rev ersal of the cervical lordosis. Age indeterminate likely chronic and degenerat josé miguel anterolisthesis at C2-C3 and C3-C4 anterolisthesis at C7-T1.. Soft t issues: Normal. Vertebrae: Normal height and density. No acute fracture, infection or neoplasm. Degenerative changes: C1-C2: Degenerative changes without stenosis. C2-C3: Facet arthrosis without stenosis. Minimal anterolisthesis. C3-C4: Disc osteophyte compresses formation, uncovertebral and facet arthrosis minimally in the right. Moderately severe right foraminal stenosis. Minimal anterolisthesis. C4-C5: Disc osteophyte complex format ion, uncovertebral and facet arthrosis minimally on the right. Moderate right foraminal stenoses.. C5-C6: Disc osteophyte complex formation, bilateral un covertebral and facet arthrosis. Moderate canal and bilateral foraminal stenos es C6-C7: Disc osteophyte compresses formation, bilateral uncovertebral a nterolisthesis and facet arthrosis. Moderate spinal canal and severe foraminal stenosis worst on the right. C7-T1: Bilateral facet arthrosis without sign ificant stenoses. IMPRESSION: Head CT: 1. No acute intracranial h emorrhage. Unchanged from head CT on 05/06/2017 2. Stable mild chronic microva scular ischemic changes. Cervical spine CT: 1. No acute fractures or dislocations. 2. Chronic degenerative changes as described. Note: Acu te post traumatic spinal cord, vascular or ligamentous injury cannot adequatel y be assessed with CT. Signed by: Dr. Malik Ramos M.D. on 06/21/2017 11:43 PM Dictated By: MALIK RAMOS MD 42 Transcribed By: NATIVIDAD on 06/21/172342 COPY TO: ALISON GILBERT MD SHOULDER RIGHT COMPLETE [address] [place] [address] Patient Name: BETH JASSO MR #: [id number] : 1935 Age/Sex: 82/F Req #: [id number] Adm Physician: Ordered by: ALISON PATEL MD Report #: [id number] Location: Room/Bed: Procedure: [id number] DX/SHOULDER RIGHT COMPLETE Exam Date: 06/21/17 Exam Time: [address] ATUS: Signed SHOULDER RIGHT COMPLETE HISTORY: Right shoulder pain statu s post fall. COMPARISON: None FINDINGS: Bones: No displaced f racture. Osseous alignment is within normal limits. Joints: Moderate degenerative changes of the right glenohumeral joint. Significant narrowing of the acromiohumeral interval suggestive of rotator cuff injury. Soft tiss ues: The soft tissues appear unremarkable. IMPRESSION: 1. No acute osseous abnormality. 2. Lack of internal/external rotation views limits the examination and suggest a frozen shoulder due to rotator cuff tear. However, d islocation or nondisplaced fractures cannot be excluded 3. Further evaluati on with axillary or scapular views are recommended Signed by: Dr. Hilda Ellis ra, M.D. on 06/21/2017 11:44 PM Dictated By: HILDA KENNEDY MD Elec tronically Signed By: HILDA KENNEDY MD on 06/21/172343 Transcribed By: NATIVIDAD on 06/21/172343 COPY TO: ALISON PATEL MD CT BRAIN WO [address] [place] [address] Patient Name: BETH JASSO MR #: [id number] : 1935 Age/Sex: 82/F Req #: [id number] Adm Physician: Ordered by: NIKA MONTALVO MD Report #: [id number] Location: ER Room/Bed: Procedure: [id number] CT/CT BRAIN WO Exam Date: Exam Time: REPORT STATUS: Signed Exam: Head CT w ithout contrast History: Trauma, fall Comparison studies: Previous head CT of 04/09/2012 is unavailable on PACS for comparison. Technique: Axial images were obtained from the skull base to the vertex. Coronal and sagittal i mages reconstructed from the axial data. Intravenous contrast: None Findi ngs: Scalp: Small left frontal-suprarenal soft tissue hematoma. No retained hyperdense foreign body. Bones: No fractures, blastic or lytic lesions. Brain sulci: Mildly prominent. Ventricles: Mild compensatory dilatation. No hydrocephalus. Extra-axial spaces: No masses, no fluid collection. Paren chyma: No mass, acute hemorrhage or acute cortical vascular insults. A few sc attered hypodensities in the supratentorial white matter are nonspecific but m ost compatible with chronic small vessel ischemic changes. Sellar/supr asellar region: No abnormalities. Craniocervical junction: Patent foramen magn um. No Chiari one malformation. Incidental findings: Atherosclerotic cele cifications in the carotid siphons and left intradural vertebral artery. IMPRESSION: 1. Small left frontal/supraorbital scalp hematoma without underlying fracture or retained hyperdense foreign body. 2. No acute intrac ranial abnormalities. 3. Mild generalized volume loss. 4. Mild chronic daphne rovascular ischemic changes. Signed by: Dr. Mehran Duron M.D. on 10:36 PM Dictated By: MEHRAN DURON MD 35 Transcribed By: NATIVIDAD on 05/06/172235 COPY TO: NIKA MONTALVO MD
--- OUTSIDE RECORDS SUMMARY | 2019-11-24 19:50 | XMS REPORT | Summary of Care ---
Author Organization Unknown Address Unknown Phone Unavailable Encounter HQ Jian(TYLER) [id number] Date(s): 07/28/14 - 07/29/14 [facility] [address] [place] [address]- Discharge Diagnosis: Cervical neck pain with evidence of disc disease Discharge Disposition: Home Physician Attending: Tr Man MD Vital Signs 1 2 3 Most recent to oldest [Reference Range]: 162.56 cm (07/28/14 10:38 PM) Height 98.1 DegF (07/29/14 3:36 AM) 98.4 DegF (07/29/14 2:36 AM) 98.0 DegF (07/29/14 12:45 AM) Temperature Oral [96.4-99.1 DegF] 138/51 mmHg (07/29/14 3:36 AM) 141/49 mmHg *HI* (07/29/14 2:36 AM) 136/51 mmHg (07/29/14 12:45 AM) Blood Pressure [90-140/60-90 mmHg] 18 BRMIN (07/29/14 3:36 AM) 20 BRMIN (07/29/14 2:36 AM) 20 BRMIN (07/29/14 12:45 AM) Respiratory Rate [14-20 BRMIN] 66 bpm (07/29/14 3:36 AM) 65 bpm (07/29/14 2:36 AM) 68 bpm (07/29/14 12:45 AM) Peripheral Pulse Rate [60-100 bpm] 79.545 kg (07/28/14 10:38 PM) Weight 30.1 m2 (07/28/14 10:38 PM) Body Mass Index Problem List Condition Effective Dates Status Health Status Informan t Asthma(Confirmed) Resolved Allergies, Adverse Reactions, Alerts Substance Reaction Severity Status aspirin Active Catarase Active Demerol HCl Active Levaquin Active penicillins Active shellfish Active Medications morphine Sulfate 4 mg, Route: IVP, Drug form: INJ, ONCE, Dosing Weight 79.545, kg, Priority: STAT , Start date: 07/29/14 2:06:00, Stop date: 07/29/14 2:06:00 Start Date: 07/29/14 Stop Date: 07/29/14 Status: Completed morphine Sulfate 2 mg, 1 mL, Route: IVP, Drug form: INJ, ONCE, Dosing Weight 79.545, kg, Priority : STAT, Start date: 07/28/14 23:06:00, Stop date: 07/28/14 23:06:00 Notes: (Same as:MORPhine Sulfate) Start Date: 07/28/14 Stop Date: 07/29/14 Status: Completed ondansetron 4 mg, 2 mL, Route: IVP, Drug form: INJ, ONCE, Dosing Weight 79.545, kg, Priority : STAT, Start date: 07/28/14 23:06:00, Stop date: 07/28/14 23:06:00 Notes: (Same as: Lebron) MEDICATION WASTE Product Size: 4 mgProduct Was jolie: ___ mg Start Date: 07/28/14 Stop Date: 07/29/14 Status: Completed Saline Flush 0.9% 10 mL, Route: IVP, Drug Form: INJ, Dosing Weight 79.545, kg, PRN, PRN Line Flush , Start date: 07/28/14 23:06:00, Duration: 30 day, Stop date: 08/27/14 23:05:00 Notes: preservative free. Start Date: 07/28/14 Stop Date: 07/29/14 Status: Discontinued Results ELECTROLYTES Most recent to 1 oldest [Reference Range]: Sodium Lvl [135-145 128 mEq/L mEq/L] *LOW* (07/29/14 12:36 AM) Potassium Lvl 4.8 mEq/L [3.5-5.1 mEq/L] (07/29/14 12:36 AM) Chloride Lvl [95-109 94 mEq/L mEq/L] *LOW* (07/29/14 12:36 AM) CO2 [24-32 mEq/L] 25 mEq/L (07/29/14 12:36 AM) AGAP [10.0-20.0 13.8 mEq/L mEq/L] (07/29/14 1236 AM) CHEM PANEL Most recent to 1 oldest [Reference Range]: Creatinine Lvl 0.9 mg/dL [0.5-1.4 mg/dL] (07/29/14 12:36 AM) eGFR 61 mL/min/1.73m2 1 *NA* (07/29/1436 AM) BUN [7-22 mg/dL] 15 mg/dL (07/29/14 12:36 AM) B/C Ratio [6-25] 17 (07/29/14:36 AM) Glucose Lvl [70-99 85 mg/dL 2 mg/dL] (07/29/14:36 AM) Total Protein 7.2 g/dL [6.4-8.4 g/dL] (07/29/14:36 AM) Albumin Lvl [3.5-5.0 4.0 g/dL g/dL] (07/29/14:36 AM) Globulin [2.0-4.0 3.2 g/dL g/dL] (07/29/14 12:36 AM) A/G Ratio [0.7-1.6] 1.2 (07/29/14:36 AM) Calcium Lvl 8.9 mg/dL [8.5-10.5 mg/dL] (07/29/14 12:36 AM) ALT [0-65 unit/L] 22 unit/L (07/29/14:36 AM) AST [0-37 unit/L] 29 unit/L (07/29/14 12:36 AM) Alk Phos [39-136 66 unit/L unit/L] (07/29/14 12:36 AM) Bili Total [0.2-1.3 0.4 mg/dL mg/dL] (07/29/14 12:36 AM) 1Result Comment: The eGFR is calculated using the CKD-EPI formula. In most young, healthy individuals the eGFR will be >90 mL/min/1.73m2. The eGFR declines with age. An eGFR of 60-89 may be normal in some populations, particularly the elderly, for whom the CKD-EPI formula has not been extensively validated. Use of the eGFR is not recommended in the following populations: Individuals with unstable creatinine concentrations, including patients and those with serious co-morbid conditions. Patients with extremes in muscle mass or diet. The data above are obtained from the National Kidney Disease Education Program ( NKDEP) which additionally recommends that when the eGFR is used in patients with extremes of body mass index for purposes of drug dosing, the eGFR should be mul tiplied by the estimated BMI. 2Interpretive Data: Adult reference range values reflect the clinical guidelines of the [place] [employer]. CARDIAC ENZYMES Most recent to 1 oldest [Reference Range]: Total CK [12-191 132 unit/L unit/L] (07/29/14 12:36 AM) CK MB [0.5-3.6 1.6 ng/mL ng/mL] (07/29/14 12:36 AM) CK MB Index 1.2 [0.0-2.5] (07/29/14:36 AM) Troponin-I <0.02 ng/mL [0.00-0.40 ng/mL] (07/29/14 12:36 AM) HEMATOLOGY Most recent to 1 oldest [Reference Range]: WBC [3.7-10.4 K/CMM] 10.8 K/CMM *HI* (07/29/14:36 AM) RBC [4.20-5.40 4.03 M/CMM M/CMM] *LOW* (07/29/14:36 AM) Hgb [12.0-16.0 g/dL] 12.2 g/dL (07/29/14 12:36 AM) Hct [36.0-48.0 %] 36.7 % (07/29/14 12:36 AM) MCV [80.0-98.0 fL] 91.0 fL (07/29/14:36 AM) MCH [27.0-31.0 pg] 30.4 pg (07/29/14:36 AM) MCHC [32.0-36.0 33.4 g/dL g/dL] (07/29/14 12:36 AM) RDW [11.5-14.5 %] 14.4 % (4/4/15 12:36 AM) Platelet [133-450 276 K/CMM K/CMM] (07/29/14 12:36 AM) MPV [7.4-10.4 fL] 9.1 fL (07/29/14 12:36 AM) Segs [45.0-75.0 %] 74.9 % (07/29/14 12:36 AM) Lymphocytes 14.5 % [20.0-40.0 %] *LOW* (07/29/14 12:36 AM) Monocytes [2.0-12.0 8.3 % %] (07/29/14 12:36 AM) Eosinophils [0.0-4.0 1.3 % %] (07/29/14 12:36 AM) Basophils [0.0-1.0 1.0 % %] (07/29/14 12:36 AM) Segs-Bands # 8.1 K/CMM [1.5-8.1 K/CMM] (07/29/14 12:36 AM) Lymphocytes # 1.6 K/CMM [1.0-5.5 K/CMM] (07/29/14 12:36 AM) Monocytes # [0.0-0.8 0.9 K/CMM K/CMM] *HI* (07/29/14 12:36 AM) Eosinophils # 0.1 K/CMM [0.0-0.5 K/CMM] (07/29/14 12:36 AM) Basophils # [0.0-0.2 0.1 K/CMM K/CMM] (07/29/14 12:36 AM) Immunizations No data available for this section [...]
== END 2019-10-13 17:54 | DRG 467 ==
LOC: OR 08:45 → PACU V 12:55 → MED/SURG 15:10
PROVIDERS: ADMIT Specialist; ATTEND Specialist
PROC: 0SPC0JZ Removal of Synthetic Substitute from Right Knee Joint, Open Approach (ICD-10-PCS; 2019-10-11)
PROC: 0SRC0EZ Replacement of Right Knee Joint with Articulating Spacer, Open Approach (ICD-10-PCS; 2019-10-11)
PROC: 0SBC0ZZ Excision of Right Knee Joint, Open Approach (ICD-10-PCS; principal; 2019-10-11 11:00)
PROC: 02HV33Z Insertion of Infusion Device into Superior Vena Cava, Percutaneous Approach (ICD-10-PCS; 2019-10-12)
PROC: B548ZZA Ultrasonography of Superior Vena Cava, Guidance (ICD-10-PCS; 2019-10-12)
DX: T84.53XA Infection and inflammatory reaction due to internal right knee prosthesis, initial encounter (principal); M87.89 Other osteonecrosis, multiple sites; T84.092A Other mechanical complication of internal right knee prosthesis, initial encounter; I10 Essential (primary) hypertension; E11.9 Type 2 diabetes mellitus without complications; E78.00 Pure hypercholesterolemia, unspecified; K44.9 Diaphragmatic hernia without obstruction or gangrene; K21.9 Gastro-esophageal reflux disease without esophagitis; M06.9 Rheumatoid arthritis, unspecified; Z96.651 Presence of right artificial knee joint; Z83.3 Family history of diabetes mellitus; Z88.8 Allergy status to other drugs, medicaments and biological substances; Z88.1 Allergy status to other antibiotic agents; Z88.0 Allergy status to penicillin; Z91.013 Allergy to seafood; J32.9 Chronic sinusitis, unspecified; F32.9 Major depressive disorder, single episode, unspecified; J45.909 Unspecified asthma, uncomplicated; J30.9 Allergic rhinitis, unspecified; Z82.49 Family history of ischemic heart disease and other diseases of the circulatory system; Z82.5 Family history of asthma and other chronic lower respiratory diseases; Z79.84 Long term (current) use of oral hypoglycemic drugs; Z11.59 Encounter for screening for other viral diseases; R53.81 Other malaise; D64.9 Anemia, unspecified
CPT/HCPCS: 36415; 36569; 71045; 80048; 80202; 82948; 85014; 85018; 85025; 86850; 86900; 86920; 87071; 87075; 87205; 97139; C1713; J0171; J0692; J1100; J1170; J1650; J1885; J2250; J2795; J3010; J3370; J7030; J7040; U0002

== ENCOUNTER 2020-01-23 06:50 | Inpatient (IN) | payer MEDICARE, OTHER ==
[2020-01-19 10:28] LABS: BASOPHILS # (AUTO) 0.1 (0.0-0.1); BASOPHILS % 1.2 % (0.0-1.0); EOSINOPHILS # (AUTO) 0.4 (0.0-0.4); EOSINOPHILS % 4.2 % (0.0-6.0); HEMATOCRIT 29.3 % (34.2-44.1); HEMOGLOBIN 9.5 g/dL (12.0-16.0); LYMPHOCYTES # (AUTO) 1.1 (1.0-3.2); LYMPHOCYTES % 12.8 % (18.0-39.1); MEAN CORPUSCULAR HEMOGLOBIN 27.7 pg (28-32); MEAN CORPUSCULAR HGB CONC 32.4 g/dL (31-35); MEAN CORPUSCULAR VOLUME 85.4 fL (81-99); MONOCYTES # (AUTO) 0.6 (0.2-0.8); MONOCYTES % 7.1 % (4.4-11.3); NEUTROPHILS # (AUTO) 6.6 (2.1-6.9); NEUTROPHILS % 74.4 % (38.7-80.0); PLATELET COUNT 357 x10e3/uL (140-360); RED BLOOD COUNT 3.43 x10e6/uL (3.6-5.1); RED CELL DISTRIBUTION WIDTH 17.5 % (11.7-14.4)
[2020-01-19 10:41] LABS: CREATININE, SERUM 1.21 mg/dL (0.57-1.11)
[~2020-01-23] VITALS: Ht 160 cm; Wt 74.4 kg
[~2020-01-23 06:50] MED LIST changes: +CELEBREX100 MG PO; +Hydrocodone/Apap 5MG-325MG PO; +Hydrocodone/Apap 7.5MG-325MG PO; +LOVENOX40 MG/0.4 SC; -ROPIVACAINE 246.25 MG, EPINEPHRINE HCL 1:1000 1ML 0.5 MG, CLONIDINE HCL 0.08 MG, KETORO... INJ ONE; +SYMBICORT 16010.2 GM; -VANCOMYCIN HCL 1 GM VIAL ONE; +[UNRECOGNIZED DRUG - OTHER]
[2020-01-23] MEDS ORDERED: CELECOXIB 200 MG CAP ONE (07:18)
[2020-01-23] MEDS ORDERED: GABAPENTIN 300 MG CAP ONE (07:18)
[2020-01-23] MEDS ORDERED: VANCOMYCIN 1GM/NS 250 ML 250 ML ONE (07:25)
[2020-01-23] MEDS ORDERED: DEXAMETHASONE SOD PHOS INJ 4 MG/ML VIAL ONE (07:56)
[2020-01-23] MEDS ORDERED: RISEDRONATE SOD35 MG PO (08:11)
[2020-01-23] MEDS ORDERED: SODIUM CHLORIDE 0.9% 500ML 500 ML ONE (08:38)
[2020-01-23] MEDS ORDERED: TRANEXAMIC ACID 1,000 MG/10 ML ML ONE (08:38)
[2020-01-23] MEDS ORDERED: VANCOMYCIN HCL 1,000 MG ONE (08:38)
[2020-01-23] MEDS ORDERED: HYDROCODONE/APAP 5MG-325MG TAB PO PRN (11:15)
[2020-01-23] MEDS ORDERED: ONDANSETRON HCL INJ 2MG/ML 2ML 2 MG/ML VIAL IV PRN (11:15)
[2020-01-23] MEDS ORDERED: DIPHENHYDRAMINE HCL INJ 50 MG/ML VIAL IV PRN (11:15)
[2020-01-23] MEDS: SODIUM CHLORIDE 0.9% 1000ML 1,000 ML IV SCH ×2 (11:15→21:15)
[2020-01-23] MEDS ORDERED: KETOROLAC TROMETHAMINE 30 MG/ML VIAL IV PRN (11:15)
[2020-01-23] MEDS ORDERED: HYDROCODONE/APAP 7.5MG-325MG 1 EA TAB PO PRN (11:15)
[2020-01-23] MEDS ORDERED: VANCOMYCIN 1GM/NS 250 ML 250 ML IV SCH (11:15)
[2020-01-23] MEDS ORDERED: ACETAMINOPHEN 650 MG SUPP PR PRN (11:15)
[2020-01-23] MEDS ORDERED: DOCUSATE SODIUM 100 MG CAP PO PRN (11:15)
[2020-01-23] MEDS ORDERED: FENTANYL CITRATE/PF 100MCG/2 ML INJ ONE ×2 (12:05→13:03)
--- NOTE | 2020-01-23 12:22 | Diagnostic Imaging Report ---
Right knee radiographs-3 views History: Postoperative. Comparison: Right knee radiographs 10/11/2019. 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 Overlying subcutaneous emphysema and surgical skin kyle are present. Atherosclerotic vascular calcifications. IMPRESSION: Status post interval revision right total knee arthroplasty in anatomic position. Signed by: Dr. Kye Saavedra MD on 01/23/2020 12:18 PM
[2020-01-23] MEDS ORDERED: LIDOCAINE HCL 2% JELLY 5 ML TUBE ONE (12:56)
[2020-01-23] MEDS ORDERED: PROPOFOL IV EMULSION 10 MG/ML 20 ML VIAL ONE (12:56)
[2020-01-23] MEDS ORDERED: ONDANSETRON HCL INJ 2MG/ML 2ML 2 MG/ML VIAL ONE (12:56)
[2020-01-23] MEDS ORDERED: SEVOFLURANE INHAL SOLN 250 ML PEN BTL ONE (12:56)
[2020-01-23] MEDS ORDERED: LIDOCAINE HCL 2% LOCAL INJ 5 ML SDV VIAL INJ ONE (12:56)
[2020-01-23] MEDS ORDERED: LIDOCAINE 2% /EPINEPHRINE 20 ML SDV INJ ONE (12:59)
[2020-01-23] MEDS ORDERED: ROPIVACAINE 0.5% 5 MG/ML 30 ML SDV ONE (12:59)
[2020-01-23] MEDS ORDERED: MIDAZOLAM HCL 2 MG/2 ML VIAL ONE (13:03)
[2020-01-23] MEDS ORDERED: HYDROCODONE/APAP 5MG-325MG TAB ONE (13:26)
--- OUTSIDE RECORDS SUMMARY | 2020-01-23 13:26 | XMS REPORT | Continuity of Care Document ---
Author Author [facility]ine [facility] [employer] Address Unknown Phone Unavailable Care Team Providers Care Manager Environmental Affairs Name Role Phone [employer] Unavailable Un available Problems Problem Status Onset Date Classification Date Reported Comments Source Discharge Diagnosis: Cervical neck pain with evidence of disc disease 07/29/2014 07/31/2014 [facility] SHOULDER/NECK PAIN Active 07/28/2014 [facility] Asthma (disorder) Resolved Problem 05/27/2019 [facility], OPID [place] V01.1 Active [facility] UNK Active [facility] JOINT PAIN-HAND Active [facility] Medications Medication Details Route Status Patient Instructions Ordering Provider Order Date Source Morphine 4 mg, Route: IVP, Ar g form: INJ, ONCE, Dosing Weight 79.545, kg, Priority: STAT, Start date: 07/29/14 2:06:00, Stop date: 07/29/14 2:06:00 Inactive 07/29/2014 [facility] Ondansetron Notes: (Same as: Richard conner) MEDICATION WASTE Product Size: 4 mg Product Wasted: ___ mg No Longer Active 07/29/2014 [facility] Morphine Notes: (Same as:MORPh ine Sulfate) No Longer Active 07/29/2014 [facility] Saline Flush 0.9% Notes: prese rvative free. No Longer Active 07/29/2014 [facility] Allergies, Adverse Reactions, Alerts Substance Category Reaction Severity Reaction type Status Date Reported Comments Source aspirin Assertion Drug allergy Active [facility] [place] Catarase Assertion Drug allergy Active [facility] [place] Demerol HCl Assertion Drug allergy Active [facility] [place] Levaquin Assertion Drug allergy Active [facility] [place] penicillins Assertion Drug allergy Active [facility] [place] shellfish Assertion Drug allergy Active [facility] [place] Immunizations No Data Provided for This Section Results Order Name Results Value Reference Range Date Interpretation Comments Source CARDIAC ENZYMES CK MB Index 1.2 0.0 - 2.5 07/29/2014 [facility] CARDIAC ENZYMES Troponin-I <0.02 0.00 - 0.40 07/29/2014 [facility] CARDIAC ENZYMES Total CK 132 12 - 191 07/29/2014 [facility] CARDIAC ENZYMES CK MB 1.6 0.5 - 3.6 07/29/2014 [facility] ELECTROLYTES Chloride Lvl 94 95 - 109 07/29/2014 [facility] ELECTROLYTES Calcium Lvl 8.9 8.5 - 10.5 07/29/2014 [facility] ELECTROLYTES Sodium Lvl 128 135 - 145 07/29/2014 [facility] ELECTROLYTES Potassium Lvl 4.8 3.5 - 5.1 07/29/2014 [facility] ELECTROLYTES Globulin 3.2 2.0 - 4.0 07/29/2014 [facility] ELECTROLYTES A/G Ratio 1.2 0.7 - 1.6 07/29/2014 [facility] ELECTROLYTES Albumin Lvl 4.0 3.5 - 5.0 07/29/2014 [facility] ELECTROLYTES ALT 22 0 - 65 07/29/2014 [facility] ELECTROLYTES AGAP 13.8 10.0 - 20.0 07/29/2014 [facility] ELECTROLYTES Bili Total 0.4 0.2 - 1.3 07/29/2014 [facility] ELECTROLYTES B/C Ratio 17 6 - 25 07/29/2014 [facility] ELECTROLYTES AST 29 0 - 37 07/29/2014 [facility] ELECTROLYTES Alk Phos 66 39 - 136 07/29/2014 [facility] ELECTROLYTES eGFR 61 07/29/2014 <sup>1</sup>Result Comment: The eGFR is calculated using the CKD-EPI formula. In most young, healthy individuals the eGFR will be >90 mL/min/1.73m2. The eGFR declines with age. An eGFR of 60-89 may be normal in some populations, particularly the elderly, for whom the CKD-EPI formula has not been extensively validated. Use of the eGFR is not recommended in the following populations:& lt;br/>
Individuals with unstable creatinine concentrations, including patients and those with serious co-morbid conditions.

Patients with extremes in muscle mass or diet.

The data above are obtained from the National Kidney Disease Education Program (NKDEP) which additionally recommends that when the eGFR is used in patients with extremes of body mass index for purposes of drug dosing, the eGFR should be multiplied by the estimated BMI. [facility] ELECTROLYTES Creatinine Lvl 0.9 0.5 - 1.4 07/29/2014 [facility] ELECTROLYTES CO2 25 24 - 32 07/29/2014 [facility] ELECTROLYTES Total Protein 7.2 6.4 - 8.4 07/29/2014 [facility] ELECTROLYTES Glucose Lvl 85 70 - 99 07/29/2014 <sup>2</sup>Interpretive Data: Adult ref erence range values reflect the clinical guidelines
of the [place] Diabetes [employer]. [facility] ELECTROLYTES BUN 15 7 - 22 07/29/2014 [facility] HEMATOLOGY Eosinophils # 0.1 0.0 - 0.5 07/29/2014 [facility] HEMATOLOGY Basophils # 0.1 0.0 - 0.2 07/29/2014 [facility] HEMATOLOGY Segs-Bands # 8.1 1.5 - 8.1 07/29/2014 [facility] HEMATOLOGY Monocytes # 0.9 0.0 - 0.8 07/29/2014 [facility] HEMATOLOGY Lymphocytes # 1.6 1.0 - 5.5 07/29/2014 [facility] HEMATOLOGY Basophils 1.0 0.0 - 1.0 07/29/2014 [facility] HEMATOLOGY Eosinophils 1.3 0.0 - 4.0 07/29/2014 [facility] HEMATOLOGY Monocytes 8.3 2.0 - 12.0 07/29/2014 [facility] HEMATOLOGY Lymphocytes 14.5 20.0 - 40.0 07/29/2014 [facility] HEMATOLOGY Segs 74.9 45.0 - 75.0 07/29/2014 [facility] HEMATOLOGY Platelet 276 133 - 450 07/29/2014 [facility] MPV 9.1 7.4 - 10.4 07/29/2014 [facility] HEMATOLOGY WBC 10.8 3.7 - 10.4 07/29/2014 [facility] HEMATOLOGY Hgb 12.2 12.0 - 16.0 07/29/2014 [facility] RBC 4.03 4.20 - 5.40 07/29/2014 [facility] HEMATOLOGY Hct 36.7 36.0 - 48.0 07/29/2014 [facility] HEMATOLOGY MCH 30.4 27.0 - 31.0 07/29/2014 [facility] HEMATOLOGY MCV 91.0 80.0 - 98.0 07/29/2014 [facility] HEMATOLOGY RDW 14.4 11.5 - 14.5 07/29/2014 [facility] MCHC 33.4 32.0 - 36.0 07/29/2014 [facility] Pathology Reports No Data Provided for This Section Diagnostic Reports Report Value Date Source Chest 2 views DX EXAM: XR CHES T 2 VIEWS DATE: 05/24/2019 11:37 IN [employer] INDICATION: - r76.12 nonspecific reaction to cell immunity measurement of gamma interferon antigen response without active TB COMPARISON: 07/28/2014 TECHNIQUE: PA and lateral chest radiographs FINDINGS: No lung parenchymal or pleural abnormalities are seen. Kayla and pulmonary vasculature are normal. Cardiac silhouette is normal in size. In the retrocardiac posterior mediastinum, there is a 10.6 x 8.3 x 6.7 cm gas-filled thick-walled structure compatible with a large sliding esophageal kayla hernia. Atherosclerotic calcifications are seen in the aortic arch. No acute bony abnormality is identified. Bilateral vertebral joint osteoarthritic changes are present. There is stable narrowing of the right acromiohumeral distance, possibly from chronic rotator cuff tear as well. IMPRESSION: 1. No acute cardiopulmonary abnormalitie s are seen. No radiographic evidence of pulmonary tuberculosis. 2. Large sliding esophageal kayla hernia, increased in size with compared with the prior exam. 3. 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 05/24/2019 [facility] Hand 2 views Bilateral DX Bila teral hands 2 views: The bone density is decreased. There is no fracture or dislocation. There is mild subluxation of the base of the proximal phalanx of the left middle finger and right middle and ring fingers. There are erosive changes involving the DIP joints of the left index and middle finger and the right index finger. There are degenerative changes involving the carpometacarpal and scaphomultangular joints of both wrists with erosive changes and sclerosis. No other significant erosive changes are seen. There is narrowing of the radiocarpal joints of both wrists without erosive changes. 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 SL:13 01/23/2015 [facility] Spine cervical series DX EXAM: CERVICAL SPINE 5 VIEWS DATE: Jul 29, 2014 12:17:00 AM INDICATION: Pain with radiculopathy COMPARISON: Cervical spine series 11/12/2011. TECHNIQUE: AP, open-mouth odontoid, bilateral oblique and lateral radiographs of the cervical spine show from the skull base through C7-T1. FINDINGS: Vertebral body heights and disk heights are maintained. Minimal grade 1 anterolisthesis of C3 over C4 is again seen. Multilevel degenerative disc disease and facet arthropathy is seen. Right C3-C4 C5-C6, and C6-C7 neural foramen narrowing is seen. Left C5-C6 and C6-C7 neural foramen narrowing is seen. Prevertebral soft tissues are not thickened. IMPRESSION: 1. Multilevel degenerative disc disease and facet arthropathy. 3. Unchanged grade 1 anterolisthesis of C3 over C4. 3. Bilateral neural foramen narrowing as described above. SL: 14 07/29/2014 [facility] Chest 1view DX EXAM: CHEST 1 V IEW DATE: Jul 29, 2014 12:17:51 AM INDICATION: Chest pain COMPARISON: Testis on 10/14/2013. TECHNIQUE: AP chest radiograph. FINDINGS: Lungs are clear bilaterally without effusion. The cardiomediastinal contours are within normal limits. A small to moderate hiatal hernia is again seen. Bilateral shoulder degenerative changes are noted. IMPRESSION: 1. No acute intrathoracic abnormality SL: 14 07/29/2014 [facility] Chest 2 views PA and LATERAL C HEST (2 views) HISTORY: V01.1 Contact with or Exposure to Tuberculosis Comparison is made to 07/10/2012. FINDINGS: The lungs are clear. The heart and pulmonary vasculature are within normal limits. There are no pleural effusions. There are mild atherosclerotic changes involving the thoracic aorta. There is a moderate size hiatal hernia with an air-fluid level. There are moderate degenerative changes involving the left shoulder mild degenerative change involving the right shoulder. Otherwise, the regional skeleton is unremarkable. CONCLUSION: 1. No active disease. 2. Moderate-sized hiatal hernia. 3. Degenerative changes involving the sh oulders. Coding: Chest 2 views CPT Code: 17360 SL: 13 Jaron Sandoval M.D. 05/02/2013 [facility] Sinus wo contrast CT CT parana adilene sinuses without contrast 01/13/2013 Clinical: Chronic sinusitis. Comparison: 12/17/2005 CT. Finding: Maxillary: Well-aerated. Sphenoid: Well-aerated. Ethmoid: Well-aerated. Frontal: Well-aerated. Nasal cavity/Ostiomeatal units: Nasal septal deviation to the left is again seen, measuring approximately 3.0 mm from the midline. No chavez bullosa is identified. No nasal cavity soft tissue mass is seen. The bilateral paranasal sinus surgical changes are stable with patent nasoantral windows. Moderate right Lenka is air cell is again seen. Soft tissues/Mastoids: The mastoid air cells are not completely included on this exam. The visualized soft tissues appear symmetric. IMPRESSION: 1. Well-aerated paranasal sinuses. 2. Stable postsurgical changes with seals nt nasoantral windows. 3. Please see additional comments above. 01/13/2013 [facility] Consultation Notes No Data Provided for This Section Discharge Summaries No Data Provided for This Section History and Physicals No Data Provided for This Section Vital Signs Vital Sign Value Date Comments Source Respitory Rate 18 07/29/2014 [facility] Systolic (mm Hg) 138 07/29/2014 [facility] Diastolic (mm Hg) 51 07/29/2014 [facility] Temperature Oral (F) 98.1 F 07/29/2014 [facility] Heart Rate 66 07/29/2014 [facility] Temperature Oral (F) 98.4 F 07/29/2014 [facility] Respitory Rate 20 07/29/2014 [facility] Heart Rate 65 07/29/2014 [facility] Systolic (mm Hg) 141 07/29/2014 [facility] Diastolic (mm Hg) 49 07/29/2014 [facility] Respitory Rate 20 07/29/2014 [facility] Heart Rate 68 07/29/2014 [facility] Systolic (mm Hg) 136 07/29/2014 [facility] Diastolic (mm Hg) 51 07/29/2014 [facility] Temperature Oral (F) 98.0 F 07/29/2014 [facility] Height 162.56 cm 07/29/2014 [facility] Weight 79.545 07/29/2014 [facility] BMI Calculated 30.1 07/29/2014 [facility] Encounters Location Location Details Encounter Type Encounter Number Reason For Visit Attending Provider ADM Date DC Date Status Source [facility] Outpatient [id number] V01.1 KELLY DOMINGO 05/02/2013 05/02/2013 Active [facility] [id number] Tr Man 07/29/2014 07/29/2014 [facility] Outpatient [id number] Kelly Domingo 01/23/2015 01/24/2015 [facility] [place] [facility] [id number] Kelly Domingo 05/24/2019 05/25/2019 [facility] [place] Procedures Procedure Code Date Perfomer Comments Source Procedure<sup>1</sup> [id number] Back surgery [facility], [facility] Assessment and Plan No Data Provided for This Section Plan of Care No Data Provided for This Section Social History Social History Date Source Social History TypeResponse Alcohol Never, Previous treatment: None. Smoking Status Never smoker; Exposure to Tobacco Smoke None; Cigarette Smoking Last 365 Days No; Reg Smoking Cessation Counseling No 07/29/2014 [facility] Social History TypeResponse Alcohol Never, Previous treatment: None. Smoking Status Never smoker; Exposure to Tobacco Smoke None; Cigarette Smoking Last 365 Days No; Reg Smoking Cessation Counseling No entered on: 07/28/14 07/29/2014 [facility] Family History No Data Provided for This Section Advance Directives No Data Provided for This Section Functional Status No Data Provided for This Section
--- OUTSIDE RECORDS SUMMARY | 2020-01-23 13:26 | XMS REPORT | Continuity of Care Document ---
Author Author [facility] t Organization [facility] Address [address] [place] [phone] Phone Unavailable Care Team Providers Care Ip Litigation Associate Name Role Phone MALACHI LAKE PCP MEHRAN OLIVEIRA Attphys Unavailable Alen LAKE MD Attphys Unavailable Bakari Linder Attphys CHARITO PINEDO Attphys Unavailable BETO RANDALL M.D. Attphys Unavailable Freddie PATEL Attphys Unavailable Bakari MONTALVO Attphys Unavailable Alison Man Attphys LIZY PRADO Admphys Unavailable MEHRAN OLIVEIRA Admphyfidencio Unavailable Payers Payer Name Policy Type Policy Number Effective Date Expiration Date Fidnecio YADAV [id number] 2019 00:00:00 [facility] [place] [facility] Medicare A & B [id number] 2000 00:00:00 [facility] [place] [facility] Cdc Review [id number] [facility] Problems Condition Name Condition Details Condition Category Status Onset Date Resolution Date Last Treatment Date Treating Clinician Comments Source Diabetes mellitus Diabetes Problem Active 2015-10-11 00:00:00 [facility] Fall Fall Problem Active 2015-10-11 00:00:00 [facility] Fracture of transverse process of thoracic vertebra Fr acture of transverse process of thoracic vertebra Problem Active 2015-10-11 00:00:00 [facility] Fracture, rib Fracture, rib Problem Active 2015-10-11 00:00:00 [facility] Hyponatremia Hyponatremia Problem Active 2015-10-11 00:00:00 [facility] Fracture of transverse process of lumbar vertebra Lumb ar transverse process fracture Problem Active 2015-10-11 00:00:00 [facility] SHOULDER/NECK PAIN SHOU LDER/NECK PAIN Active 07/28/2014 [facility] Diagnosis Active 2014-07-28 00:00:00 2014-07-28 23:45:00 Antoine Hilliard Limb pain Limb pain Problem Active [facility] Asthma (disorder) Asth ma (disorder) Resolved Problem 05/27/2019 [facility], OPID [place] Problem Resolved 2019-05-27 00:29:43 Antoine Hilliard V01.1 V01. 1 Active [facility] Active 2013-05-06 10:30:00 Antoine Hilliard UNK UNK Active [facility] Active 2015-01-23 13:40:00 Antoine Hilliard JOINT PAIN-HAND JOIN T PAIN-HAND Active [facility] Active 2015-01-23 13:40:00 [facility] Discharge Diagnosis: Cervical neck pain with evidence of disc disease Discharge Diagnosis: Cervical neck pain with evidence of disc disease 07/29/2014 07/31/2014 [facility] Problem 2014-0 4-04 05:00:00 2014-07-31 16:58:41 2014-07-31 16:58:41 Antoine Hilliard Allergies, Adverse Reactions, Alerts Allergy Name Allergy Type Status Severity Reaction(s) Onset Date Inacti ve Date Treating Clinician Comments Source Phenylbutazone Allergy to substance Active 2019-10-07 00:00 :00 [facility] clonidine HCl Allergy to substance Active 2017-05-06 00:00: 00 [facility] meperidine HCl Allergy to substance Active 2017-05-06 00:00 :00 [facility] Penicillin Allergy to substance Active 2017-05-06 00:00:00 [facility] Demerol TABS Allergy to drug (finding) Active [facility] Penicillins Allergy to drug (finding) Active [facility] Shellfish Allergy to substance (finding) Active [facility] aspirin Allergy to drug (finding) Active [facility] [id number] Allergy to drug (finding) Active [facility] Levaquin Allergy to drug (finding) Active [facility] aspirin aspirin Active [facility] Catarase Catarase Active [facility] trista Hilliard Demerol HCl Demerol HCl Active [facility] Levaquin Levaquin Active Destiny Victor penicillins penicillins [facility] shellfish Active Mayur Hilliard Social History Social Habit Start Date Stop Date Quantity Comments Source Social History 2014-07-29 04:02:34 2014-07-29 04:02:34 Antoine Poca Sex Assigned At 1935 00:00:00 1935 00:00:00 Female [facility] Medications Ordered Medication Name Filled Medication Name Start Date Stop Da te Current Medication? Ordering Clinician Indication Dosage Frequency Signature (SIG) Comments Components Source Enoxaparin Sodium (Lovenox) 40 Mg/0.4 Ml INJ Enoxapari n Sodium (Lovenox) 40 Mg/0.4 Ml INJ 2019-10-13 13:04:00 Yes 40 Daily@17 [facility] Hydrocodone/Apap 5MG-325MG Hydrocodone/Apap 5MG-325MG 2019-10-13 13:0 4:00 Yes 1 Every 4 Hours as needed for Moderate Patrice n (4-6) [facility] Hydrocodone/Apap 7.5MG-325MG Hydrocodone/Apap 7.5MG-325MG 2019-09-26 8 13:04:00 Yes 1 Every 4 Hours as needed for Severe Pain (7-10) [facility] Tramadol Hcl (Ultram) 50 Mg TABLET Tramadol Hcl (Ultram) 50 Mg TABLET 2015-10-15 17:45:00 2019-10-07 00:00:00 No 50 Three Times A Day as needed for Pain And Temperature [facility] Morphine 2014-07-29 07:06:00 No 4 mg, Route: IVP, Drug form: INJ, ONCE, Dosing Weight 79.545, kg, Priority: STAT, Start date: 07/29/14 2:06:00, Stop date: 07/29/14 2:06:00 Antoine garrido Ondansetron 2014-07-29 04:06:00 No Notes: (Same as: Lebron) MEDICATION WASTE Product Size: 4 mg Product Wasted: ___ mg [facility] Morphine 2014-07-29 04:06:00 No Not es: (Same as:MORPhine Sulfate) [facility] Saline Flush 0.9% 2014-07-29 04:06:00 No Notes: preservative free. [facility] Abatacept (Orencia) 87.5 Mg/0.7 Ml SYRINGE Abatacept ( Orencia) 87.5 Mg/0.7 Ml SYRINGE Yes Monthly [facility] Alendronate Sodium (Fosamax) 70 Mg TABLET Alendronate Sodium (Fosamax) 70 Mg TABLET Yes 35 Weekly [facility] Amlodipine Besylate Amlodipine Besylate Yes 10 Daily [facility] Budesonide/Formoterol Fumarate (Symbicor t 160-4.5 Mcg Inhaler) 10.2 Gm HFA.AER.AD Budesonide/Formoterol Fumarate (Symbicor t 160-4.5 Mcg Inhaler) 10.2 Gm HFA.AER.AD Yes As Needed [facility] Bupropion Hcl (Bupropion Xl) 150 Mg TAB.ER.24H Bupropi on Hcl (Bupropion Xl) 150 Mg TAB.ER.24H Yes 150 Daily [facility] Cyclobenzaprine Hcl Cyclobenzaprine Hcl Yes 10 Daily [facility] Fexofenadine Hcl Fexofenadine Hcl Yes Daily [facility] Folic Acid Folic Acid Yes 1 Daily [facility] Glipizide (Glipizide Er) 5 Mg TAB.ER.24 Glipizide (Glipizide Er) 5 Mg TAB.ER.24 Yes Daily [facility] Hydralazine Hcl Hydralazine Hcl Yes 50 Daily [facility] Ipratropium/Albuterol Sulfate (Combivent Respimat Inha l [place]) 4 Gm AER.W.ADAP Ipratropium/Albuterol Sulfate (Combivent Respimat Inhal [place]) 4 Gm AER.W.ADAP Yes 4 As Needed [facility] Irbesartan Irbesartan Yes 300 Daily [facility] Metformin Hcl Metformin Hcl Yes 500 Twice A Day [facility] Methotrexate Sodium (Methotrexate) 2.5 Mg TABLET Metho trexate Sodium (Methotrexate) 2.5 Mg TABLET Yes 2.5 Weekly [facility] Montelukast Sodium Montelukast Sodium Yes 10 Da luca [facility] Nebivolol Hcl (Bystolic) 5 Mg TABLET Nebivolol Hcl (Bystolic) 5 Mg TABLET Yes 5 Three Times A Day [facility] Pantoprazole Sodium (Protonix) 40 Mg TABLET. Pantopr azole Sodium (Protonix) 40 Mg TABLET. Yes 40 Daily [facility] Pro Air Pro Air Yes As Needed [facility] Simvastatin Simvastatin Yes 40 Today At 9:00PM [facility] Albuterol/Ipratropium (Combivent Inhaler) 14.7 Gm AERO Albuterol/Ipratropium (Combivent Inhaler) 14.7 Gm AERO 2015-10-15 00:00:00 No 1 As Needed [facility] Amlodipine Besylate Amlodipine Besylate 2015-10-15 00:00:00 No 1 Daily [facility] Azelastine Hcl (Astepro) 137 Mcg/0.137 Ml SPRAY.PUMP A zelastine Hcl (Astepro) 137 Mcg/0.137 Ml SPRAY.PUMP 2015-10-15 00:00:00 No 1 As Needed [facility] Folic Acid Folic Acid 2015-10-15 00:00:00 No 1 Bettie ly [facility] Losartan Potassium Losartan Potassium 2015-10-15 00:00:00 No 1 Daily [facility] Methotrexate Sodium (Methotrexate) 2.5 Mg TAB.DS.PK Me thotrexate Sodium (Methotrexate) 2.5 Mg TAB.DS.PK 2015-10-15 00:00:00 No 6 Weekly [facility] Nebivolol Hcl (Bystolic) 2.5 Mg TABLET Nebivolol Hcl (Bystolic) 2.5 Mg TABLET 2015-10-15 00:00:00 No 1 Daily [facility] Nisoldipine Nisoldipine 2015-10-15 00:00:00 No 1 D aily [facility] Pantoprazole Sodium (Protonix) 40 Mg TABLET. Pantopr azole Sodium (Protonix) 40 Mg TABLET. 2015-10-15 00:00:00 No 1 Daily [facility] Prednisone Prednisone 2015-10-15 00:00:00 No 1 Bettie ly [facility] Salmeterol Xinafoate/Fluticasone (Advair 500/50*) 1 Ea AERP Salmeterol Xinafoate/Fluticasone (Advair 500/50*) 1 Ea AERP 2015-10-15 00:00:00 N o 1 As Needed [facility] Warfarin Sodium Warfarin Sodium 2015-10-15 00:00:00 No 1 Daily [facility] Vital Signs Vital Name Observation Time Observation Value Comments Source Body Temperature 2019-10-13 16:33:00 97.7 [degF] [facility] Weight 2019-10-11 15:12:00 164 [lb_av] [facility] BMI (Body Mass Index) 2019-10-11 15:12:00 29.1 kg/m2 [facility] Height 2017-10-07 15:45:00 63 [in_us] [facility] Weight 2017-10-07 15:45:00 176.8 [lb_av] [facility] Body Mass Index Calculated 2017-10-07 15:45:00 31.32 kg/m2 [facility] Respitory Rate 2014-07-29 08:36:00 Destiny al Poca Systolic (mm Hg) 2014-07-29 08:36:00 Mayur Hilliard Diastolic (mm Hg) 2014-07-29 08:36:00 Mem o[facility]ak Temperature Oral (F) 2014-07-29 08:36:00 98.1 F [facility] Heart Rate 2014-07-29 08:36:00 [facility] Temperature Oral (F) 2014-07-29 07:36:00 98.4 F [facility] Respitory Rate 2014-07-29 07:36:00 Memori al Babak Heart Rate 2014-07-29 07:36:00 [facility] Systolic (mm Hg) 2014-07-29 07:36:00 Mayur rial Poca Diastolic (mm Hg) 2014-07-29 07:36:00 Mem o[facility] Respitory Rate 2014-07-29 05:45:00 Memori al [facility] Heart Rate 2014-07-29 05:45:00 [facility] Systolic (mm Hg) 2014-07-29 05:45:00 Mayur rial Babak Diastolic (mm Hg) 2014-07-29 05:45:00 Mem orial Babak Temperature Oral (F) 2014-07-29 05:45:00 98.0 F [facility] Height 2014-07-29 03:38:00 162.56 cm [facility] Weight 2014-07-29 03:38:00 [facility] BMI Calculated 2014-07-29 03:38:00 Memori al [facility] Procedures Procedure Date / Time Performed Performing Clinician [facility] e X-ray of chest, two views 2019-09-30 00:00:00 [facility] [U] XRAY KNEE 4 OR MORE VWS RIGHT [id number] 2017-10-05 00:00:00 [facility] Procedure<sup>1</sup> [facility] Encounters Start Date/Time End Date/Time Encounter Type Ad[facility] Encounter ID Source 2020-01-13 10:00:00 2020-01-13 10:00:00 Outpatient Nghia Jacobs [id number] [employer] 2019-09-30 11:26:00 2019-09-30 11:26:00 Registered Clinic 3 MALACHI LAKE MD [facility] [id number] [facility]. [facility] 2019-09-22 12:40:00 2019-09-22 12:40:00 Registered Clinic [facility] [id number] [facility]. [facility] 2019-05-24 11:30:00 2019-05-24 23:59:00 Outpatient Freddie Linder MHOIB MHOIB [id number] 2017-10-07 14:30:00 2017-10-07 14:30:00 Appointment; BETO RANDALL M.D. HUANG, EDDIE, M.D. [facility] Orthopedics at [facility] [id number] [facility] 2017-06-21 21:43:00 2017-06-21 23:53:00 Departed Emergency Room ER ALISON PATEL [facility] [id number] [facility] 2017-05-06 21:44:00 2017-05-07 00:17:00 Departed Emergency Room ER KATIA NIKA [facility] [id number] [facility] 2016-09-22 11:22:00 2016-09-22 12:57:[address] [facility] [id number] [facility] 2016-09-03 13:41:00 2016-09-03 13:41:[address] [facility] [id number] [facility] 2015-01-23 13:02:00 2015-01-23 23:59:00 Outpatient Kelly Linder SE SE [id number] 2014-07-28 22:30:00 2014-07-29 04:00:00 Outpatient DonovanTr IE IE [id number] Results Test Description Test Time Test Comments Results Result Comments Source KNEE RIGHT 1-2 VIEWS 2020-01-23 12:11:00 [place] [address] Patient Name: BETH JASSO MR #: [id number] : 1935 Age/Sex: 84/F Req #: [id number] Adm Physician: Ordered by: MEHRAN OLIVEIRA MD Report #: [id number] Location: OR Room/Bed: Procedure: [id number] DX/KNEE RIGHT 1-2 VIEWS Exam Date: 01/23/20 Exam Time: 1150 REPORT STATUS: Signed Right knee radiographs-3 views History: Postoperative. Comparison: Right knee radiographs 10/11/2019. 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 Overlying subcutaneous emphysema and surgical skin kyle are present. Atherosclerotic vascular calcifications. IMPRESSION: Status post interval revision right total knee arthroplasty in anatomic position. Signed by: Dr. Melita Chu MD on 01/23/2020 12:18 PM Dictated By: MELITA CHU MD 1218 Transcribed By: NATIVIDAD on 01/23/20 1218 COPY TO: MEHRAN OLIVEIRA MD Capillary blood glucose measurement by glucometer (mas s/volume) 2019-10-13 11:01:00 Test Item Bedside Glucose (test code = 93986-6) 129 70-120 Meter ID: [id number] [place] Medical CenterBlood hemoglobin measurement (moles/volume)2019-10-13 04:54:00* Test Item Value Reference Range Interpretation Comments Hemoglobin (test code = 29139-9) 8.1 12.0-16.0 [facility] [place] [facility] CenterAutomated blood hematocrit (volume fraction)2019-10-13 04:54:00* Test Item Value Reference Range Interpretation Comments Hematocrit (test code = 4544-3) 25.2 34.2-44.1 [facility] [place] [facility] CenterCHEST XRAY LINE [id number] 17:20:00 [place] [address] Patient Name: BETH JASSO MR #: [id number] : 1935 Age/Sex: 84/F Req #: [id number] Adm Physician: MEHRAN OLIVEIRA MD Ordered by: WATSON MITCHELL MD Report #: [id number] Location: MED/SURG Room/Bed: 106-1 Procedure: [id number] DX/CHEST XRAY LINE PLACEMENT Exam Date: 10/12/19 [...] MD 21 Transcribed By: NATIVIDAD on 10/12/191721 ENGINE WATCHMAN Y TO: WATSON MITCHELL MD Serum or plasma trough vancomycin level at trough (mass/volume)2019-10-12 10:20:00* Test Item Value Reference Range Interpretation Comments Vancomycin Level Trough (test code = 4092-3) 21.2 5.0-10.0 Results repeated and called to Wilma Baer at 1045 on 10/12/19 by Vidal Ruiz. Read back and verified.[facility] [place] [facility] CenterKNEE RIGHT 1-2 [id number] 15:20:00 [facility] [address], [place] [address] Patient Name: BETH JASSO MR #: [id number] : 1935 Age/Sex: 84/F Req #: [id number] Adm Physician: MEHRAN OLIVEIRA MD Ordered by: MEHRAN OLIVEIRA MD Report #: [id number] Location: MED/SURG Room/Bed: [facility] Procedure: [id number] DX/KNEE RIGHT 1-2 VIEWS Exam Date: 10/11/19 [...] MD Fluoroscopic procedure less than one hour [id number] 11:25:00* Test Item Value Reference Range Interpretation [...] Pathology Laboratories are certified under the C linical Laboratory Improvement Amendments of 1988 (CLIA), 42 U.S.C. section 263a , to perform high complexity tests.Testing performed by [facility] [id number] [place], [place] [phone] Director: Gokul Gilbert M.D.ALEXANDER # [id number] [place] Medical CenterBlood leukocytes automated count (number/volume)2019-10-07 11:05:00* Test Item Value Reference Range Interpretation Comments White Blood Count (test code = 6690-2) 9.65 4.8-10.8 [facility] [place] [facility] erythrocytes automated count (number/volume)2019-10-07 11:05:00* Test Item Value Reference Range Interpretation Comments Red Blood Count (test code = 789-8) 3.74 3.6-5.1 [facility] [place] [facility] CenterAutomated erythrocyte mean corpuscular aslzsa7578-21-83 11:05:00* Test Item Value Reference Range Interpretation Comments Mean Corpuscular Volume (test code = 787-2) 88.5 81-99 [facility] [place] [facility] CenterAutomated erythrocyte mean corpuscular hemoglobin (mass per erythrocyte)2019-10-07 11:05:00* Test Item Value Reference Range Interpretation Comments Mean Corpuscular Hemoglobin (test code = 785-6) 29.1 28-32 [facility] [place] [facility] CenterAutomated erythrocyte mean corpuscular hemoglobin concentration measurement (mass/volume)2019-10-07 11:05:00* Test Item Value Reference Range Interpretation Comments Mean Corpuscular Hemoglobin Concent (test code = 786-4) 32.9 31-35 [facility] [place] [facility] CenterRDW JxnAj-Cdi0411-29-12 11:05:00* Test Item Value Reference Range Interpretation Comments Red Cell Distribution Width (test code = 89953-9) 12.8 11.7 -14.4 [facility] [place] [facility] CenterAutomated blood platelet count (count/volume)2019-10-07 11:05:00* Test Item Value Reference Range Interpretation Comments Platelet Count (test code = 777-3) 460 140-360 [facility] [place] [facility] CenterAutomated blood segmented neutrophil count as percentage of total eqmllxolow3974-15-78 11:05:00* Test Item Value Reference Range Interpretation Comments Neutrophils (%) (Auto) (test code = 87353-4) 76.5 38.7-80.0 [facility] [place] [facility] CenterAutomated blood lymphocyte count as percentage ot total gxfjlyprya9870-54-47 11:05:00* Test Item Value Reference Range Interpretation Comments Lymphocytes (%) (Auto) (test code = 736-9) 12.5 18.0-39.1 [facility] [place] [facility] CenterAutomated blood monocyte count as percentage of total druwrsqbco3484-96-32 11:05:00* Test Item Value Reference Range Interpretation Comments Monocytes (%) (Auto) (test code = 5905-5) 9.3 4.4-11.3 [facility] [place] [facility] CenterAutomated blood eosinophil count as percentage of total kzishwebdd2741-22-11 11:05:00* Test Item Value Reference Range Interpretation Comments Eosinophils (%) (Auto) (test code = 713-8) 0.7 0.0-6.0 [facility] [place] [facility] CenterAutomated blood basophil count as percentage of total xwfaqghhpx3325-08-65 11:05:00* Test Item Value Reference Range Interpretation Comments Basophils (%) (Auto) (test code = 706-2) 0.6 0.0-1.0 [facility] [place] [facility] CenterFluoroscopic procedure less than one hour txgtvzvn7080-03-12 11:05:00* Test Item Value Reference Range Interpretation Comments IM GRANULOCYTES % (test code = IM GRANULOCYTES %) 0.4 0.0- 1.0 [facility] [place] [facility] CenterAutomated blood neutrophil count 2019-10-07 11:05:00* Test Item Value Reference Range Interpretation Comments Neutrophils # (Auto) (test code = 751-8) 7.4 2.1-6.9 [facility] [place] [facility] CenterBlood lymphocytes count (number/volume) 2019-10-07 11:05:00* Test Item Value Reference Range Interpretation Comments Lymphocytes # (Auto) (test code = 37080-8) 1.2 1.0-3.2 [facility] [place] [facility] CenterBlmer[facility] monocytes automated count (number/volume)2019-10-07 11:05:00* Test Item Value Reference Range Interpretation Comments Monocytes # (Auto) (test code = 742-7) 0.9 0.2-0.8 [facility] [place] [facility] CenterAutomated blood eosinophil count 2019-10-07 11:05:00* Test Item Value Reference Range Interpretation Comments Eosinophils # (Auto) (test code = 711-2) 0.1 0.0-0.4 [facility] [place] [facility] CenterAutomated blood basophil count (count/volume)2019-10-07 11:05:00* Test Item Value Reference Range Interpretation Comments Basophils # (Auto) (test code = 704-7) 0.1 0.0-0.1 [facility] [place] [facility] CenterFluoroscopic procedure less than one hour kynsegtv5595-81-41 11:05:00* Test Item Value Reference Range Interpretation Comments Absolute Immature Granulocyte (auto (karen t code = Absolute Immature Granulocyte (auto) 0.04 0-0.1 [facility] plasma sodium measurement (moles/volume)2019-10-07 11:05:00* Test Item Value Reference Range Interpretation Comments Sodium Level (test code = 2951-2) 132 136-145 [facility] or plasma potassium measurement (moles/volume)2019-10-07 11:05:00* Test Item Value Reference Range Interpretation Comments Potassium Level (test code = 2823-3) 3.9 3.5-5.1 [facility] or plasma chloride measurement (moles/volume)2019-10-07 11:05:00* Test Item Value Reference Range Interpretation Comments Chloride Level (test code = 2075-0) 97 98-107 [facility]rum or plasma carbon dioxide, total measurement (moles/volume)2019-10-07 11:05:00* Test Item Value Reference Range Interpretation Comments Carbon Dioxide Level (test code = 2028-9) 24 22-29 [facility]rum or plasma anion oex2435-34-98 11:05:00* Test Item Value Reference Range Interpretation Comments Anion Gap (test code = 04636-1) 14.9 8-16 [facility] or plasma urea nitrogen measurement (mass/volume)2019-10-07 11:05:00* Test Item Value Reference Range Interpretation Comments Blood Urea Nitrogen (test code = 3094-0) 13 11-19 [facility] or plasma creatinine measurement (mass/volume)2019-10-07 11:05:00* Test Item Value Reference Range Interpretation Comments Creatinine (test code = 2160-0) 0.86 0.57-1.11 [facility] or plasma urea nitrogen/creatinine mass inxss6298-02-04 11:05:00* Test Item Value Reference Range Interpretation Comments BUN/Creatinine Ratio (test code = 3097-3) 15 10-19 [facility] [place] [facility] CenterEstimated glomerular filtration rate (GFR) nutxrzlayfmjd7241-58-84 11:05:00* Test Item Value Reference Range Interpretation Comments Estimat Glomerular Filtration Rate (test code = 483465068) > 60 >60 Ranges were taken from the National Kidney Disease Education Program and the [facility] Kidney Foundation literature.Reference ranges:60 or greater: Faihfp49-19 ( for 3 consecutive months): Chronic kidney disease 15 or less: Kidney failureNorth [place] Medical CenterGlucose tqsjmsctujx8493-40-60 11:05:00* Test Item Value Reference Range Interpretation Comments Glucose Level (test code = ZQH9511) 202 74-118 [facility]ererum or plasma calcium measurement (mass/volume)2019-10-07 11:05:00* Test Item Value Reference Range Interpretation Comments Calcium Level (test code = 78307-3) 9.3 8.4-10.2 [facility] [place] [facility] CenterCHEST 2 YEGYZ0453-28-69 13:57:00 [facility] [address] [place] [address] Patient Name: BETH JASSO MR #: [id number] : 1935 Age/Sex: 84/F Req #: [id number] Adm Physician: Ordered by: JAYA TUCKER, MALACHI Lowry MD Report #: [id number] Location: [facility] Mechelle /Bed: Procedure: [id number] DX/CHEST 2 VIEWS Exam Date: 09/30/19 Exam [...] WASHINGTON MD 1359 COPY TO: [place] TO Erythrocyte sedimentation rate by Westergren pogphx9106-06-24 13:28:00* Test Item Value Reference Range Interpretation Comments Erythrocyte Sedimentation Rate (test code = 4537-7) 26 0- 20 [facility]ererum or plasma C reactive protein measurement (mass/volume)2019-09-22 13:28:00* Test Item Value Reference Range Interpretation Comments C-Reactive Protein (test code = 1988-5) 9 0-10 Performed at: - [facility] [id number] Director: Toi Meyer MD, Phone: [phone] [place] Medical CenterRENAL SCAN W/QUTHF9633-96-55 11:42:00 [facility] [address] [place], [place] [id number] Patient Name: BETH JASSO MR #: [id number] : 1935 Age/Sex: 83/F Req #: [id number] Adm Physician: Ordered by: CHARITO PINEDO MD Report #: [id number] Location: [place] Room/Bed: Procedure: [id number] NM/RE NAL SCAN W/LASIX Exam Date: Exam [...] COPY TO: CHARITO PINEDO MD RENAL SCAN W/[id number] 18:38:00 [place] [address] Patient Name: BETH JASSO MR #: [id number] : Age/Sex: 82/F Req #: [id number] Adm Physician: Ordered by: CHARITO PINEDO MD Report #: [id number] Location: [place] Room/Bed: Procedure: [id number] NM/RENAL SCAN W/LASIX Exam Date : 10/30/17 [...] 10/30/171844 COPY TO: CHARITO PINEDO MD CARDIAC RTDLSEE3244-50-02 05:36:001[facility] 2014-07-29 05:36:00<0.02[facility] WFPZYVK9662-18-72 05:36:35999 [facility] ZGCUKTY7261-25-52 05:36:001.6[facility] KVKYAZNMTPGT8498-69-49 05:36:0094[facility] KmmsquiKQDDFGSDEIFX6444-78-43 05:36:00 8.9[facility] PvcjxcfUBCGWMCFONFU8600-66-57 05:36:33385Npujnxvw Babak IVUVDNXZJZUB0265-40-44 05:36:004.8[facility] FjbqhqsURGLBIBUSQGI3649-00-81 05:36:003.2[facility] TlugnlgGJDVFIWBIMAV8897-47-10 05:36:001.2[facility] EFUMCFYVFOBN0549-93-39 05:36:004.0[facility] IpiloduTGIBTOJDDQWH7551-63-85 05:36:0022[facility] WefpcrgAZAMPWUCGBBU0144-83-56 05:36:0013.8[facility] DURGGQEKURBD1302-74-20 05:36:000.4[facility] TtgxfnzCBHPQMZDWRPU0454-19-95 05:36:0017[facility] PyvadiqWANSEEJQYHLH7201-91-89 05:36:0029[facility] OXZEGBQNKUBJ7521-07-77 05:36:0066[facility] CvyysuaONQMPSTZVMJW8891-77-12 05:36:00 61[facility] TkxwajpNZUDKOWHWAWY0891-74-96 05:36:000.9[facility]annELECTROLYTES 2014-07-29 05:36:0025[facility] YtrpwqkOPZYTFDSLOQN5423-71-28 05:36:007.2[facility] HwqejheVCXOMNEZDPGI0631-71-58 05:36:0085[facility] OqyavdzJESZASQSHZQT9099-78-14 05:36:0015[facility] VueczzyCTOFGHYWWP0121-94-66 05:36:000.1[facility] XGSTXVKRCF7445-65-83 05:36:000.1[facility] CnesqoeJWUZOGQSMZ2375-88-37 05:36:008.1 [facility] UsphrkwPYDRTVSKAH9539-92-02 05:36:000.9[facility]annHEMATOLOGY 2014-07-29 05:36:001.6[facility] BnklqgvYJRYMIOLEY7626-94-78 05:36:001.0[facility] LnnjpmtLUISLQYOWC2687-50-88 05:36:001.3[facility] JwsxhbnRCKIHTBXQH3066-91-19 05:36:008.3[facility] LzeejprMGFNMEVNPO8922-27-30 05:36:0014.5[facility] KCWDIVKAEV0664-90-58 05:36:0074.9[facility] EcchxapNTNXDBHSVM1033-18-93 05:36:00 276[facility] AievzhfKRCPZJZDKN5278-96-58 05:36:009.1[facility]annHEMATOLOGY 2014-07-29 05:36:0010.8[facility] FkgukiiNIZWRNNVMC8831-63-11 05:36:0012.2[facility] OshjkboEMVNZRDKUT7664-60-64 05:36:004.03[facility] FrxlqcuCXQUJWZITT0272-37-44 05:36:0036.7[facility] YvsrkzoLDNXLFYKUF7444-97-32 05:36:00* Test Item Value Reference Range Interpretation Comments MCH (test code = MCH) 30.4 pg 27.0-31.0 [facility]RambrwvSFVBHNZCLQ9460-00-62 05:36:0091.0[facility] 2014-07-29 05:36:0014.4[facility] HospitalXhxezdyWDBXSUDYCD0533-67-40 05:36:0033.4[facility]annCT CERVICAL SPINE WO [place] [address] Patient Name: BETH JASSO MR #: [id number] : 1935 Age/Sex: 82/F Req #: [id number] Adm Physician: Ordered by: ALISON PATEL MD Report #: [id number] Location: ER Room/Bed: Procedure: [id number] CT/CT CERVICAL SPINE WO E xam Date: [...] blastic lesions. No fractures. 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 No mass, hemorrhage [...] 11:43 PM Dictated By: MALIK RAMOS MD [id number] Transcribed By: NATIVIDAD on 06/21/172342 COPY T O: ALISON PATEL MD CT BRAIN WO [place] [address] Patient Name: BETH JASSO MR #: [id number] : 1935 Age/Sex: 82/F Req #: [id number] Adm Physician: Ordered by: ALISON PATEL MD Report #: [id number] Location: ER Room/Bed: Procedure: [id number] CT/CT BRAIN WO Exam Date: 06/21/17 Exam [...] RAMOS MD 42 Transcribed By: NATIVIDAD on 06/21/17 234 COPY TO: ALISON GILBERT MD SHOULDER RIGHT COMPLETE [place] [address] Patient Name: BETH JASSO MR #: [id number] : 1935 Age/Sex: 82/F Req #: [id number] Adm Physician: Ordered by: ALISON PATEL MD Report #: [id number] Location: ER Room/Bed: Procedure: [id number] DX/SHOULDER RIGHT COMPLETE Exam Date: 06/21/17 Exam Time: [address] ATUS: Signed SHOULDER RIGHT COMPLETE [...] tronically Signed By: HILDA KENNEDY MD on 06/21/174 Transcribed By: NATIVIDAD on 06/21/172343 COPY TO: ALISON PATEL MD CT BRAIN WO [place] [address] Patient Name: BETH JASSO MR #: [id number] : 1935 Age/Sex: 82/F Req #: [id number] Adm Physician: Ordered by: NIKA MONTALVO MD Report #: [id number] Location: ER Room/Bed: Procedure: [id number] CT/CT BRAIN WO Exam Date: Exam Time: [...]
[2020-01-23 16:00] VITALS: BP 124/64
[2020-01-23 16:21] VITALS: BP 141/68
[2020-01-23] MEDS: CELECOXIB 100 MG CAP PO SCH (16:45)
[2020-01-23] MEDS ORDERED: ACETAMINOPHEN 1000 MG/100 ML IV PRN (17:00)
--- NOTE | 2020-01-23 17:34 | Operative Report ---
DATE OF PROCEDURE: 01/23/2020 SURGEON: Tam Alonso MD LAY OUT MAKER: Rory Winchester PA-C. PREOPERATIVE DIAGNOSIS: Acquired absence of right knee. SECONDARY DIAGNOSIS: Extensor mechanism failure, right knee. POSTOPERATIVE DIAGNOSIS: Acquired absence of right knee. PROCEDURE: Right knee removal of temporary antibiotic prosthesis, revision total knee arthroplasty, and quadriceps reconstruction. INDICATIONS: The patient is an 84-year-old lady who has a complicated and difficult history. She presented with a markedly abnormal patellofemoral tracking after a right total knee replacement done in [facility]. The patella is eroded created an ulcer to the anterior skin of her right knee. This communicated directly to the right knee. Based on these findings, she underwent a resection arthroplasty, placement of antibiotic prosthesis and long-term IV antibiotics. She has had subsequent cultures and other studies that imply her infection is resolved. We have discussed the options. We have mentioned the challenges due to her limited extensor mechanism. The challenges of her case have been discussed. All of her questions have been answered. She states she understands and wishes to proceed. PROCEDURE IN DETAIL: The patient was brought to the operating room and placed under general anesthetic. She received a regional block, prophylactic antibiotics, and tranexamic acid in the holding area. Her right lower extremity was prepped and draped in a sterile manner. The previous incision was outlined. A preoperative time-out was performed. The extremity was exsanguinated and a proximal tourniquet was inflated to 300 mmHg. The previous incision was utilized. Care was taken to minimize creation of any medial or lateral space. A medial parapatellar arthrotomy was performed. Soft tissue releases were performed to bring the knee up into flexion. A quadriceps snip was necessary. Care was taken to make sure that there was no avulsion of the remaining extensor mechanism at the tibial tubercle. The previous antibiotic spacer was carefully removed. This allowed improved flexion. Cultures were taken as we entered the joint. There was a blood-tinged, but clear synovial fluid. There was no signs of overt purulence. A curved curette was used to debride the fibrinous membrane off the end of the distal femur and the proximal tibia. All fragments of cement were removed. We then proceeded with revision of the knee replacement. A R[employer]in [employer] knee system was used. Initial attention was directed towards the proximal tibia. Intramedullary reamers were placed. A size 11 reamer provided good stability for referencing of a fresh 1 mm cut of the proximal tibia. A size #3 tibial base plate provided good tibial coverage. Rotation was based off the remnant of the tibial tubercle. The fin punch was impacted and attention was directed towards the distal femur. Intramedullary reamers were placed into the canal. A size 14 reamer had good canal fill for freshening up the distal femur. We elected to use a size five femoral component. This necessitated a 5 mm medial augment. Trial reductions were performed. She had good stability in full extension and about 80 degrees of flexion with a 9 mm posterior stabilized tibial insert. The trial implants were then all removed. The knee was thoroughly irrigated on several occasions with a shower tip pulsatile lavage. The components were assembled on the back table. A single mix of high viscosity Biomet cement preloaded with antibiotics was prepared. The components had press-fit stems, so the cement was only applied to the posterior aspect of the articular surfaces. The components were seated and the cement was allowed to cure. Care was taken to remove extravasated cement. We then carefully examined what was left of the extensor mechanism. The remnant of the patella was tethered to the lateral aspect. A lateral retinacular release was partially performed. This properly aligned the remnant of the patellar fragments over the trochlear groove. Decellularized dermal allograft made by [employer] was then used to augment the extensor mechanism. This was sewn into place with Ethibond stitches. The remnant of the medial parapatellar arthrotomy was also repaired with Ethibond stitches. All the previous Ethibond from the previous surgeries were carefully removed. The knee was able to range from 0 degrees to 85 degrees of flexion. There was good stability. A 500 mg of vancomycin powder had been sprinkled into the deep portion of the wound. The skin was then carefully closed with subcuticular Vicryl and kyle. A sterile Aquacel bandage was applied. An orthopedic Charles wrap was applied with bolsters. The patient was then extubated and transported to the recovery room in stable condition. Estimated blood loss was 75 mL. All needle and sponge counts were correct. Tam Alonso MD DR/MARCELL /[id number]
--- NOTE | 2020-01-23 19:05 | NUR ---
Received the pt in report.aox3.no resp.distress.no pain voiced.right knee incision site is covered with nichelle wrap.right knee immobilizer is in place.ice pack provided.voided in bed roberts. bed locked and in lowest position.phone and call light within reach.instructed to call for assistance as needed.
--- NOTE | 2020-01-23 19:10 | NUR ---
Received the pt in report.aox3.no resp.distress.right hip dressing is dry .abduction pillow is in place.ambulates to rest room and voided.bed locked and in lowest position.phone and call light within reach.instructed to call for assistance as needed.
[2020-01-23] MEDS ORDERED: ENOXAPARIN SOD INJ 40 MG/0.4 ML SYR SC SCH (20:00)
--- NOTE | 2020-01-23 20:10 | NUR ---
IV TO LEFT HAND IS INFILTERATED.IV REMOVED .IV TIP IS INTACT.APPLIED PRESSURE DRESSING.
[2020-01-23 20:13] VITALS: BP 149/64
[2020-01-23 20:35] VITALS: BP 149/64
[2020-01-23] MEDS ORDERED: ZOLPIDEM TARTRATE 5 MG TAB PO PRN (21:00)
--- NOTE | 2020-01-23 22:00 | NUR ---
put cpm on.pt tolerated well.
--- NOTE | 2020-01-23 23:00 | NUR ---
I COULD NOT REACH OUT DR.WALTON MEDEL.NOTIFIED TO ROVING WINDER.NOTIFIED TO MD WILL REPLIED TO CONTACT DR.WALTON CHRISTINE.CALL PLACED TO ANSWERING SERVICE OF MD JOHAN CHRISTINE REGARDING RENEWAL OF PT'S HOME MEDICATIONS.ANSWERING SERVICE REPLIED IS NOT COVERING PMC.
--- NOTE | 2020-01-23 23:00 | NUR ---
ER STAFF SWEETIE STARTED NEW IV TO RIGHT HAND#20 G .PATENT.
[2020-01-23] MEDS: VANCOMYCIN 1GM/NS 250 ML 250 ML IV SCH (23:39)
[2020-01-24] VITALS: BP 136/59
[2020-01-24 04:00] VITALS: BP 154/70
[2020-01-24 05:09] LABS: HEMATOCRIT 25.4 % (34.2-44.1); HEMOGLOBIN 8.3 g/dL (12.0-16.0)
--- NOTE | 2020-01-24 06:20 | NUR ---
CALL PLACED TO ANSWERING SERVICE OF REGARDING HOME MED RENEWAL.AWAITING FOR CALL BACK.CPM APPLIED @FLEXION DEGREE 55.KEEP MONITOR THE PT.
--- NOTE | 2020-01-24 07:00 | NUR ---
DR.WALTON CHRISTINE IS NOT TAKING CALLS FROM OUR FACILITY.NOTIFIED TO .ORDERED CONSULTATION WITH DR.TRAN MICHELE.REPORT GIVEN TO ONCOMING RN.STABLE CONDITION.
--- NOTE | 2020-01-24 07:00 | NUR ---
BEDSIDE SHIFT REPORT RECEIVED FROM RICH SULLIVAN. PT DENIES FURTHER NEEDS AT THIS TIME.
--- NOTE | 2020-01-24 07:05 | NUR ---
REPORT GIVEN TO ONCOMING RN.STABLE CONDITION.
[2020-01-24] MEDS: SODIUM CHLORIDE 0.9% 1000ML 1,000 ML IV SCH (07:15)
--- NOTE | 2020-01-24 07:15 | NUR ---
PT REMOVED FROM CPM. JAMESON WRAP REMOVED. PT TOLERATED. ALEXANDRA REMOVED TO REVEAL AQUACELL WITH NO SHADOWING. C/D/I
[2020-01-24 08:00] VITALS: BP 154/57
[2020-01-24] MEDS: CELECOXIB 100 MG CAP PO SCH (08:36)
[2020-01-24] MEDS: VANCOMYCIN 1GM/NS 250 ML 250 ML IV SCH (08:36)
--- NOTE | 2020-01-24 08:41 | NUR ---
DR JONES OFFICE PREARRANGED FOLLOWING DISCHARGE PLAN OF: HOME [address] [facility], [facility] WITH [facility] CONFIRMED WITH [employer] [phone] DME 3 IN ONE COMMODE, CPM AND ROLLING WALKER WITH WHEELS. PROVIDED BY [employer] [phone] STEVE SIGNED AND ON CHART COPY LEFT WITH PATIENT GAVE CARD FOR QUESTIONS AND OR CONCERNS.
[2020-01-24] MEDS ORDERED: DEXTROSE 50% SYRINGE 50 ML IV PRN (08:45)
[2020-01-24] MEDS ORDERED: MAGNESIUM HYDROXIDE 30 ML UDC PO PRN (08:45)
[2020-01-24] MEDS ORDERED: IPRATROPIUM/ALBUTEROL SULFATE 4 GM INH INH PRN (08:45)
[2020-01-24] MEDS ORDERED: KETOROLAC TROMETHAMINE 30 MG/ML VIAL IV PRN (08:45)
[2020-01-24] MEDS ORDERED: CYCLOBENZAPRINE HCL 10 MG TAB PO PRN (08:45)
[2020-01-24 08:53] LABS: ANION GAP 11.9 mmol/L (8-16); CALCIUM 8.5 mg/dL (8.4-10.2); CREATININE, SERUM 1.13 mg/dL (0.57-1.11); POTASSIUM 3.9 mmol/L (3.5-5.1)
[2020-01-24] MEDS ORDERED: AMLODIPINE BESYLATE 10 MG TAB PO SCH (09:00)
[2020-01-24] MEDS ORDERED: LORATADINE 10 MG TAB PO SCH (09:00)
[2020-01-24] MEDS ORDERED: SENNOSIDES 8.6 MG TAB PO SCH (09:00)
[2020-01-24] MEDS ORDERED: PANTOPRAZOLE SOD 40 MG TABEC PO SCH (09:00)
[2020-01-24] MEDS ORDERED: BUPROPION HCL 150 MG TABCR PO SCH (09:00)
[2020-01-24 09:32] VITALS: BP 154/57
[2020-01-24] MEDS ORDERED: FOLIC ACID 1 MG TAB PO SCH (10:00)
[2020-01-24] MEDS ORDERED: NEBIVOLOL HCL 2.5 MG TABLET PO SCH (11:00)
[2020-01-24] MEDS ORDERED: BUDESONIDE/FORMOTEROL 160/4.5MCG INHALER INH SCH (11:00)
[2020-01-24] MEDS ORDERED: INSULIN LISPRO 100 UNIT/1 ML 3ML VIAL SQ SCH (11:30)
[2020-01-24] MEDS ORDERED: ALBUTEROL/IPRATROPIUM 3 ML NEB INH PRN (11:45)
[2020-01-24 12:14] VITALS: BP 127/62
--- NOTE | 2020-01-24 12:23 | Consultation ---
DATE OF CONSULTATION: PRIMARY CARE PHYSICIAN: Dr. Robin Whiting. REASON FOR CONSULTATION: Medical management. The patient is status post right knee removal of temporary antibiotic prosthesis and revision of total knee arthroplasty and triceps reconstruction. The patient has diabetes type 2, on oral medication, hypertension, dyslipidemia, osteoarthritis. HISTORY OF PRESENT ILLNESS: The patient is an 84-year-old female status post right knee removal of temporary antibiotic prosthesis, revision total knee arthroplasty, and quadriceps reconstruction secondary to acquired absence of right knee with extensor mechanism failure on the right knee. The patient is postoperatively day. The patient is stable. She does not complain of any chest pain or shortness of breath. She is very comfortable. She underwent total knee replacement at [facility] roughly approximately 10 years ago. She came to see Dr. Alonso in August 2019. The patient noticed to have catastrophic failure of extensor mechanism with the patella nearly perpendicular to the trochlear groove. There was complete failure of the lateral retinaculum and the patella had eroded through the skin area. History is obtained from patient's orthopedic DrLalito Alonso. She had significant drainage from the punctate opening. The patient was sent for blood work and subsequently that was benign. The patient ended up having open irrigation and debridement of the right knee on October 11, 2019. The patient also had an antibiotic spacer. The patient is now with spacer removal and revision of total knee arthroplasty and quadriceps reconstruction. The patient is otherwise stable. At baseline, the patient has diabetes type 2, on oral medication along with hypertension and dyslipidemia. The patient is otherwise stable postop. Her hemoglobin and hematocrit are 8.3 and 25.4. The patient denies any shortness of breath. She is comfortable. PAST MEDICAL HISTORY: Right knee antibiotic spacers on October 11, 2019 and now, status post right knee removal of temporary antibiotic prosthesis and revision of total knee arthroplasty and quadriceps reconstruction. History of previous right knee replacement approximately 10 years ago. She has had osteoarthritis of multiple joints. The patient has lumbosacral spinal problem with compression fractures. Chronic bilateral shoulder rotator cuff tear. She has had allergic rhinitis. Chronic asthma. Chronic sinusitis. Major depression. Diabetes type 2. Hypertension. Dyslipidemia. Rheumatoid arthritis. PAST SURGICAL HISTORY: As above. Bladder suspension. Hysterectomy. Right knee replacement. Lumbar spine laminectomy. Sinus surgery. SOCIAL HISTORY: The patient does not smoke or use alcohol. No regular drug. ALLERGIES: PENICILLIN, SHELLFISH, ASPIRIN, CLONIDINE, LEVAQUIN, . HOME MEDICATIONS: The patient is on Orencia. Norvasc. Symbicort. Bupropion XL. Celebrex, Flexeril, Amber, folic acid, glipizide ER, hydralazine, Combivent, losartan, metformin, Singulair, Bystolic, Protonix, risedronate and simvastatin. PHYSICAL EXAMINATION: VITAL SIGNS: Temperature is 98, blood pressure 154/70, pulse rate 63, respirations 18. GENERAL: The patient is not in acute distress. She is awake. HEENT: Normocephalic, atraumatic. She is anicteric. NECK: Supple grossly. PULMONARY: Diminished breath sounds without any wheezing, rales. CARDIOVASCULAR: S1 and S2. Regular rate and rhythm. ABDOMEN: Soft. EXTREMITIES: Status post right knee surgery. NEUROLOGIC: No focal deficit. LABORATORY DATA: Sodium is 136, potassium 4, chloride 100, bicarb 26, BUN is 19, creatinine 1.2, glucose 193. WBC is 8.8, hemoglobin 8.3, hematocrit 25.4, and platelets are 357. IMPRESSION: 1. Status post right knee removal of temporary antibiotic prosthesis, revision total knee arthroplasty, and quadriceps reconstruction. 2. Diabetes type 2, on oral hypoglycemic medication. 3. Hypertension. 4. Dyslipidemia. 5. Osteoarthritis. 6. Chronic anemia. 7. Possible chronic kidney insufficiency. PLAN: Continue with postop care. Discontinue IV fluids for now. Repeat lab work. Chemistry panel, CBC. Resume some home medication with some adjustment. Insulin sliding scale coverage. DVT prophylaxis. Pain medication. PT, OT. We will follow up on the patient's lab work and adjust her medication according to her lab work and also her blood pressure. Thank you, Dr. Alonso for this consultation. I will adjust the patient's medication and management along with you while she is in the hospital. MD SIENA Jackson/MODL /[id number]
[2020-01-24] MEDS ORDERED: LOVENOX40 MG/0.4 SC (13:27)
[2020-01-24] MEDS ORDERED: CELECOXIB 100 MG CAP PO SCH (17:00)
[2020-01-24] MEDS ORDERED: MONTELUKAST SODIUM 10 MG TAB PO SCH (21:00)
[2020-01-24] MEDS ORDERED: SIMVASTATIN 40 MG TAB PO SCH (21:00)
[2020-01-25] MEDS ORDERED: GLIPIZIDE 5 MG TAB ER PO SCH (08:00)
== END 2020-01-24 15:24 | disposition home health service (06) | DRG 468 ==
LOC: OR 06:50 → PACU V 11:10 → MED/SURG 16:00
PROVIDERS: ADMIT Specialist; ATTEND Specialist
PROC: 0SRC0J9 Replacement of Right Knee Joint with Synthetic Substitute, Cemented, Open Approach (ICD-10-PCS; 2020-01-23)
PROC: 0SPC0JZ Removal of Synthetic Substitute from Right Knee Joint, Open Approach (ICD-10-PCS; principal; 2020-01-23 09:30)
DX: T84.092A Other mechanical complication of internal right knee prosthesis, initial encounter (principal); I12.9 Hypertensive chronic kidney disease with stage 1 through stage 4 chronic kidney disease, or unspecified chronic kidney disease; N18.3 Chronic kidney disease, stage 3 (moderate); M17.0 Bilateral primary osteoarthritis of knee; E78.5 Hyperlipidemia, unspecified; D64.9 Anemia, unspecified; E11.9 Type 2 diabetes mellitus without complications; Z79.84 Long term (current) use of oral hypoglycemic drugs; I25.10 Atherosclerotic heart disease of native coronary artery without angina pectoris; M06.9 Rheumatoid arthritis, unspecified; F32.9 Major depressive disorder, single episode, unspecified; J45.20 Mild intermittent asthma, uncomplicated; I34.0 Nonrheumatic mitral (valve) insufficiency; Z11.59 Encounter for screening for other viral diseases
CPT/HCPCS: 36415; 80048; 82948; 85014; 85018; 85025; 86850; 86900; 86920; 87071; 87075; 87205; 93005; 96372; C1713; C1776; J1100; J1650; J1885; J2001; J2250; J2405; J2795; J3010; J3370; J7040; Q4125; U0002

== ENCOUNTER → 2020-03-26 | Outpatient (RCR) | payer MEDICARE ==
[~2020-03-26] MED LIST changes: +RISEDRONATE SOD35 MG PO
== END ==
LOC: PT 03-09 11:03
PROVIDERS: ATTEND Specialist
DX: Z96.651 Presence of right artificial knee joint (principal); Z47.1 Aftercare following joint replacement surgery; M62.81 Muscle weakness (generalized); M25.661 Stiffness of right knee, not elsewhere classified

== ENCOUNTER 2020-04-04 10:51 | Outpatient (RCR) | payer MEDICARE | END 2020-04-26 | LOC: PT 10:51 | PROVIDERS: ATTEND Specialist | DX: Z96.651 Presence of right artificial knee joint (principal); Z47.1 Aftercare following joint replacement surgery; M62.81 Muscle weakness (generalized) ==

== ENCOUNTER 2020-06-27 08:22 | Emergency (ER) | payer MEDICARE ==
[~2020-06-27] VITALS: Ht 160 cm; Wt 74.4 kg
== END 2020-06-27 09:02 | disposition home or self-care (01) ==
LOC: ER 08:37
DX: K59.00 Constipation, unspecified (principal); I10 Essential (primary) hypertension; E11.9 Type 2 diabetes mellitus without complications; M06.9 Rheumatoid arthritis, unspecified; J45.909 Unspecified asthma, uncomplicated
CPT/HCPCS: 99282

== ENCOUNTER 2020-07-18 10:38 | Emergency (ER) | payer MEDICARE ==
[~2020-07-18] VITALS: Ht 160 cm; Wt 74.4 kg
[2020-07-18 11:10] LABS: BASOPHILS % 0.6 % (0.0-1.0); EOSINOPHILS # (AUTO) 0.2 (0.0-0.4); EOSINOPHILS % 2.6 % (0.0-6.0); HEMATOCRIT 30.8 % (34.2-44.1); HEMOGLOBIN 10.2 g/dL (12.0-16.0); LYMPHOCYTES # (AUTO) 0.9 (1.0-3.2); LYMPHOCYTES % 12.4 % (18.0-39.1); MEAN CORPUSCULAR HEMOGLOBIN 31.7 pg (28-32); MEAN CORPUSCULAR HGB CONC 33.1 g/dL (31-35); MEAN CORPUSCULAR VOLUME 95.7 fL (81-99); MONOCYTES # (AUTO) 0.5 (0.2-0.8); MONOCYTES % 7.3 % (4.4-11.3); NEUTROPHILS # (AUTO) 5.6 (2.1-6.9); NEUTROPHILS % 76.8 % (38.7-80.0); PLATELET COUNT 227 x10e3/uL (140-360); RED BLOOD COUNT 3.22 x10e6/uL (3.6-5.1)
[2020-07-18 11:34] LABS: ALBUMIN 3.8 g/dL (3.5-5.0); ALBUMIN/GLOBULIN RATIO 1.5 (0.8-2.0); ANION GAP 14.1 mmol/L (8-16); CALCIUM 8.7 mg/dL (8.4-10.2); CREATININE, SERUM 1.07 mg/dL (0.57-1.11); POTASSIUM 4.1 mmol/L (3.5-5.1)
[2020-07-18 15:51] VITALS: BP 134/71
== END 2020-07-18 15:52 | disposition home or self-care (01) ==
LOC: ER 10:47
DX: M25.512 Pain in left shoulder (principal); M54.5 Low back pain; I10 Essential (primary) hypertension; E11.65 Type 2 diabetes mellitus with hyperglycemia; M06.9 Rheumatoid arthritis, unspecified; J45.909 Unspecified asthma, uncomplicated
CPT/HCPCS: 36415; 71045; 80053; 84484; 85025; 93005; 99284

== ENCOUNTER 2020-10-28 06:39 | Inpatient (IN) | payer MEDICARE ==
[~2020-10-28] VITALS: Ht 167.6 cm; Wt 69.0 kg
[2020-10-28] MEDS ORDERED: OCTREOTIDE ACETATE 0.05 MG/ML AMP IV STA (06:43)
[2020-10-28] MEDS ORDERED: DEXTROSE 50% SYRINGE 50 ML IV STA (06:43)
[2020-10-28] MEDS ORDERED: DEXTROSE 50% SYRINGE 50 ML IV PRN ×2 (07:00→08:30)
[2020-10-28 07:25] LABS: BASOPHILS # (AUTO) 0.1 (0.0-0.1); BASOPHILS % 0.5 % (0.0-1.0); EOSINOPHILS # (AUTO) 0.1 (0.0-0.4); EOSINOPHILS % 0.5 % (0.0-6.0); HEMATOCRIT 30.6 % (34.2-44.1); LYMPHOCYTES # (AUTO) 0.6 (1.0-3.2); MEAN CORPUSCULAR HEMOGLOBIN 30.8 pg (28-32); MEAN CORPUSCULAR HGB CONC 32.7 g/dL (31-35); MEAN CORPUSCULAR VOLUME 94.2 fL (81-99); MONOCYTES # (AUTO) 1.4 (0.2-0.8); MONOCYTES % 9.2 % (4.4-11.3); NEUTROPHILS # (AUTO) 13.1 (2.1-6.9); NEUTROPHILS % 85.2 % (38.7-80.0); PLATELET COUNT 296 x10e3/uL (140-360); RED BLOOD COUNT 3.25 x10e6/uL (3.6-5.1); RED CELL DISTRIBUTION WIDTH 14.8 % (11.7-14.4)
[2020-10-28] MEDS: DEXTROSE 5% 1,000 ML IV SCH ×2 (07:34→16:44)
[2020-10-28 07:36] LABS: CLARITY,URINE CLEAR (CLEAR); COLOR,URINE YELLOW (YELLOW); KETONES,URINE NEGATIVE (NEGATIVE); LEUKOCYTE ESTERASE ,URINE TRACE (NEGATIVE); NITRITE,URINE NEGATIVE (NEGATIVE); PROTEIN,URINE DIPSTICK 1+ (NEGATIVE); URINE UROBILINOGEN 0.2 mg/dL (0.2 - 1)
[2020-10-28 07:40] LABS: BACTERIA,URINE RARE /HPF; EPITHELIAL CELLS,URINE FEW /LPF; RBC,URINE 0-5 /HPF (0-5); WBC,URINE (MAN) 0-5 /HPF (0-5)
[2020-10-28 07:41] LABS: ALBUMIN 3.3 g/dL (3.5-5.0); ALBUMIN/GLOBULIN RATIO 1.1 (0.8-2.0); ANION GAP 10.8 mmol/L (8-16); CREATININE, SERUM 2.18 mg/dL (0.57-1.11); MAGNESIUM 1.8 MG/DL (1.3-2.1)
[2020-10-28 07:43] LABS: POTASSIUM 2.8 mmol/L (3.5-5.1)
[2020-10-28 07:44] LABS: CALCIUM 14.1 mg/dL (8.4-10.2)
[2020-10-28 07:48] LABS: CREATINE KINASE MB 1.1 ng/mL (0-5.0)
[2020-10-28] MEDS ORDERED: POTASSIUM CHLORIDE 20 MEQ TAB CR PO STA (08:02)
[2020-10-28] MEDS ORDERED: SODIUM CHLORIDE 0.9% IV ONE (08:15)
[2020-10-28] MEDS ORDERED: POTASSIUM CHLORIDE IV ONE (08:15)
[2020-10-28] MEDS ORDERED: ONDANSETRON HCL INJ 2MG/ML 2ML 2 MG/ML VIAL IV PRN ×2 (08:30→18:30)
[2020-10-28] MEDS ORDERED: POTASSIUM CHLORIDE 10MEQ/100ML 200 ML IV SCH (08:40)
[2020-10-28] MEDS ORDERED: POTASSIUM CHLORIDE 20MEQ/100ML 100 ML IV SCH (08:43)
[2020-10-28] MEDS ORDERED: POTASSIUM CHLORIDE 10MEQ/100ML 200 ML ONE (09:07)
[2020-10-28] MEDS ORDERED: CLONIDINE HCL 0.1 MG TAB PO PRN (09:15)
[2020-10-28] MEDS ORDERED: POTASSIUM CHLORIDE 10MEQ/100ML 100 ML IV ONE ×2 (09:15→11:15)
[2020-10-28 12:10] VITALS: BP 116/67
[2020-10-28 12:21] VITALS: BP 116/67
[2020-10-28 12:22] VITALS: BP 116/67
[2020-10-28] MEDS ORDERED: CRESTOR10 MG PO (14:44)
[2020-10-28] MEDS ORDERED: FEROSUL325 MG PO (14:44)
[2020-10-28] MEDS ORDERED: MIRALAX17 GM PO (14:44)
[2020-10-28] MEDS ORDERED: calcium PO (14:44)
[2020-10-28] MEDS ORDERED: magnesium PO (14:44)
[2020-10-28] MEDS ORDERED: ULTRAM50 MG PO (14:44)
[2020-10-28] MEDS ORDERED: eye health complex PO (14:44)
[2020-10-28] MEDS ORDERED: tumeric curcumin PO (14:44)
[2020-10-28] MEDS ORDERED: MULTI-VITAMIN1 EACH PO (14:44)
[2020-10-28] MEDS ORDERED: METHOTREXATE2.5 MG PO (14:44)
[2020-10-28] MEDS ORDERED: SYMBICORT 16010.2 GM INH (14:44)
[2020-10-28 14:59] LABS: ANION GAP 12.7 mmol/L (8-16); CREATININE, SERUM 2.07 mg/dL (0.57-1.11); POTASSIUM 3.7 mmol/L (3.5-5.1)
[2020-10-28 15:05] LABS: CALCIUM 13.6 mg/dL (8.4-10.2)
[2020-10-28 15:20] LABS: CREATINE KINASE MB 1.3 ng/mL (0-5.0)
[2020-10-28 15:29] VITALS: BP 139/76
[2020-10-28] MEDS ORDERED: COLACE100 MG PO (16:41)
[2020-10-28] MEDS ORDERED: ipratropium bromide (16:41)
[2020-10-28] MEDS: NEBIVOLOL HCL 2.5 MG TABLET PO SCH ×2 (17:00→21:00)
[2020-10-28] MEDS ORDERED: DEXTROSE 5%/0.9% SOD CHL 1,000 ML IV SCH (18:30)
[2020-10-28] MEDS ORDERED: FUROSEMIDE INJ 10 MG/ML 2 ML VIAL IV ONE (18:45)
[2020-10-28] MEDS ORDERED: VANCOMYCIN 1GM/NS 250 ML 250 ML IV ONE (19:15)
[2020-10-28] MEDS ORDERED: AZTREONAM 1 GM/NS 50 ML 50 ML IV ONE ×2 (19:15→20:00)
[2020-10-28 19:48] VITALS: BP 172/71
[2020-10-28] MEDS ORDERED: ACETAMINOPHEN 325 MG SUPP PR PRN (20:45)
[2020-10-28 21:00] VITALS: BP 172/71
[2020-10-28] MEDS ORDERED: MEROPENEM 500 MG in SODIUM CHLORIDE 0.9% 50ML 50 ML IV ONE (21:00)
[2020-10-28] MEDS ORDERED: Vancomycin IV 1 GM in SODIUM CHLORIDE 0.9% 250ML 250 ML IV ONE (22:00)
[2020-10-28] MEDS: HEPARIN SOD (PORCINE) 5,000 UNIT/ML VIAL SC SCH (22:48)
[2020-10-28] MEDS: HYDRALAZINE HCL 20 MG/ML VIAL IV PRN (22:48)
[2020-10-29] VITALS (19 sets, daily range): BP systolic 100–171; BP diastolic 38–135
[2020-10-29 05:22] LABS: BASOPHILS # (AUTO) 0.1 (0.0-0.1); BASOPHILS % 0.2 % (0.0-1.0); EOSINOPHILS % 0.1 % (0.0-6.0); HEMATOCRIT 29.4 % (34.2-44.1); HEMOGLOBIN 9.6 g/dL (12.0-16.0); LYMPHOCYTES # (AUTO) 0.4 (1.0-3.2); LYMPHOCYTES % 1.8 % (18.0-39.1); MEAN CORPUSCULAR HEMOGLOBIN 30.8 pg (28-32); MEAN CORPUSCULAR HGB CONC 32.7 g/dL (31-35); MEAN CORPUSCULAR VOLUME 94.2 fL (81-99); MONOCYTES # (AUTO) 1.5 (0.2-0.8); MONOCYTES % 6.2 % (4.4-11.3); NEUTROPHILS % 90.7 % (38.7-80.0); PLATELET COUNT 288 x10e3/uL (140-360); RED BLOOD COUNT 3.12 x10e6/uL (3.6-5.1); RED CELL DISTRIBUTION WIDTH 14.7 % (11.7-14.4)
[2020-10-29 05:32] LABS: INR 1.12; PROTHROMBIN TIME 15.1 seconds (11.9-14.5)
[2020-10-29 05:43] LABS: ALBUMIN 2.9 g/dL (3.5-5.0); ALBUMIN/GLOBULIN RATIO 0.9 (0.8-2.0); ANION GAP 13.2 mmol/L (8-16); CREATININE, SERUM 2.31 mg/dL (0.57-1.11); POTASSIUM 3.2 mmol/L (3.5-5.1)
[2020-10-29 05:48] LABS: CALCIUM 14.3 mg/dL (8.4-10.2)
[2020-10-29 06:41] LABS: BILIRUBIN,DIRECT 0.3 mg/dL (0.0-0.5); MAGNESIUM 1.8 MG/DL (1.3-2.1); PHOSPHORUS 2.9 MG/DL (2.3-4.7)
[2020-10-29 06:47] LABS: ANISOCYTOSIS SLIGHT; LYMPHOCYTES % (MANUAL) 4 % (19-48); MONOCYTES % (MANUAL) 8 % (3.4-9.0); NEUTROPHILS % (MANUAL) 88 % (40-74); PLATELET ESTIMATE ADEQUATE; RBC MORPHOLOGY COMMENT NORMAL
[2020-10-29] MEDS: HYDRALAZINE HCL 20 MG/ML VIAL IV PRN (07:23)
[2020-10-29] MEDS ORDERED: ONDANSETRON HCL 4 MG ORAL DISINTEGRATING TAB PO PRN (08:00)
[2020-10-29] MEDS ORDERED: AZTREONAM 1 GM/NS 50 ML 50 ML IV SCH ×2 (09:00)
[2020-10-29] MEDS: HEPARIN SOD (PORCINE) 5,000 UNIT/ML VIAL SC SCH ×2 (09:00→20:32)
[2020-10-29] MEDS: NEBIVOLOL HCL 2.5 MG TABLET PO SCH ×3 (09:00→20:32)
[2020-10-29] MEDS: HYDRALAZINE HCL 25 MG TAB PO SCH (09:00)
[2020-10-29] MEDS ORDERED: WATER STERILE 10 ML VIAL IV ONE (09:00)
[2020-10-29] MEDS: AMLODIPINE BESYLATE 10 MG TAB PO SCH (09:00)
[2020-10-29] MEDS ORDERED: POTASSIUM CHLORIDE 20MEQ/100ML 100 ML IV ONE (10:45)
[2020-10-29] MEDS ORDERED: LACTATED RINGER'S 1,000 ML INJ SCH (10:45)
[2020-10-29] MEDS ORDERED: MEROPENEM 500 MG in SODIUM CHLORIDE 0.9% 50ML 50 ML IV SCH (11:00)
[2020-10-29] MEDS ORDERED: SODIUM CHLORIDE 0.9% 1000ML 1,000 ML ONE (16:41)
[2020-10-29] MEDS: SODIUM CHLORIDE 0.9% 1000ML 1,000 ML IV SCH (18:51)
[2020-10-29] MEDS ORDERED: DEXTROSE 50% SYRINGE 50 ML IV PRN (19:15)
[2020-10-29] MEDS: CEFTRIAXONE 1 GM in SODIUM CHLORIDE 0.9% 50ML 50 ML IV SCH (20:30)
[2020-10-29] MEDS: FAMOTIDINE 20 MG/2 ML VIAL IV SCH (20:30)
[2020-10-29] MEDS: FUROSEMIDE INJ 10 MG/ML 4 ML VIAL IV SCH (20:30)
[2020-10-29] MEDS: INSULIN LISPRO 100 UNIT/1 ML 3ML VIAL SQ SCH (20:34)
[2020-10-30] VITALS (25 sets, daily range): BP systolic 112–171; BP diastolic 45–131
[2020-10-30] MEDS: SODIUM CHLORIDE 0.9% 1000ML 1,000 ML IV SCH ×4 (00:30→19:47)
[2020-10-30 04:54] LABS: BASOPHILS # (AUTO) 0.1 (0.0-0.1); BASOPHILS % 0.5 % (0.0-1.0); EOSINOPHILS # (AUTO) 0.4 (0.0-0.4); EOSINOPHILS % 1.9 % (0.0-6.0); HEMATOCRIT 26.8 % (34.2-44.1); HEMOGLOBIN 8.6 g/dL (12.0-16.0); LYMPHOCYTES # (AUTO) 0.6 (1.0-3.2); LYMPHOCYTES % 3.1 % (18.0-39.1); MEAN CORPUSCULAR HEMOGLOBIN 30.6 pg (28-32); MEAN CORPUSCULAR HGB CONC 32.1 g/dL (31-35); MEAN CORPUSCULAR VOLUME 95.4 fL (81-99); MONOCYTES # (AUTO) 0.8 (0.2-0.8); MONOCYTES % 4.4 % (4.4-11.3); NEUTROPHILS # (AUTO) 16.6 (2.1-6.9); NEUTROPHILS % 89.5 % (38.7-80.0); PLATELET COUNT 272 x10e3/uL (140-360); RED BLOOD COUNT 2.81 x10e6/uL (3.6-5.1); RED CELL DISTRIBUTION WIDTH 14.6 % (11.7-14.4)
[2020-10-30 05:04] LABS: CALCIUM IONIZED 1.7 mmol/L (1.09-1.30)
[2020-10-30 05:26] LABS: ANION GAP 15.6 mmol/L (8-16); CALCIUM 11.5 mg/dL (8.4-10.2); CREATININE, SERUM 2.19 mg/dL (0.57-1.11)
[2020-10-30 05:28] LABS: POTASSIUM 2.6 mmol/L (3.5-5.1)
[2020-10-30 05:46] LABS: PHOSPHORUS 2.5 MG/DL (2.3-4.7)
[2020-10-30] MEDS ORDERED: POTASSIUM CHLORIDE 10MEQ/100ML 100 ML IV ONE (06:25)
[2020-10-30] MEDS: INSULIN LISPRO 100 UNIT/1 ML 3ML VIAL SQ SCH ×4 (07:20→21:00)
[2020-10-30] MEDS ORDERED: POTASSIUM CHLORIDE 10MEQ/100ML 300 ML IV ONE ×2 (07:30→08:05)
[2020-10-30] MEDS: NEBIVOLOL HCL 2.5 MG TABLET PO SCH ×4 (08:17→20:56)
[2020-10-30] MEDS: FUROSEMIDE INJ 10 MG/ML 4 ML VIAL IV SCH ×2 (08:17→14:45)
[2020-10-30] MEDS: AMLODIPINE BESYLATE 10 MG TAB PO SCH ×2 (08:19→08:33)
[2020-10-30] MEDS: HEPARIN SOD (PORCINE) 5,000 UNIT/ML VIAL SC SCH ×2 (08:20→20:57)
[2020-10-30] MEDS: HYDRALAZINE HCL 25 MG TAB PO SCH (08:31)
[2020-10-30] MEDS: CALCITONIN SALMON SCH (08:35)
[2020-10-30] MEDS: CEFTRIAXONE 1 GM in SODIUM CHLORIDE 0.9% 50ML 50 ML IV SCH ×2 (11:16→20:56)
[2020-10-30] MEDS ORDERED: PAMIDRONATE DISODIUM 30 MG/VIAL IV SCH (15:00)
[2020-10-30] MEDS ORDERED: Vancomycin IV 1 GM in SODIUM CHLORIDE 0.9% 250ML 250 ML IV ONE (15:30)
[2020-10-30] MEDS ORDERED: POTASSIUM CHLORIDE 10MEQ/100ML 400 ML IV ONE (15:45)
[2020-10-30] MEDS ORDERED: PAMIDRONATE DISODIUM 30 MG in SODIUM CHLORIDE 0.9% 500ML 500 ML IV ONE (16:00)
[2020-10-30] MEDS: FAMOTIDINE 20 MG/2 ML VIAL IV SCH (20:56)
[2020-10-30] MEDS: HYDRALAZINE HCL 20 MG/ML VIAL IV PRN (23:55)
[2020-10-31] VITALS (17 sets, daily range): BP systolic 124–179; BP diastolic 55–133
[2020-10-31] MEDS: SODIUM CHLORIDE 0.9% 1000ML 1,000 ML IV SCH ×4 (03:34→23:42)
[2020-10-31 04:56] LABS: BASOPHILS # (AUTO) 0.1 (0.0-0.1); BASOPHILS % 0.7 % (0.0-1.0); EOSINOPHILS # (AUTO) 0.4 (0.0-0.4); EOSINOPHILS % 2.8 % (0.0-6.0); HEMATOCRIT 25.4 % (34.2-44.1); HEMOGLOBIN 8.3 g/dL (12.0-16.0); LYMPHOCYTES # (AUTO) 0.6 (1.0-3.2); LYMPHOCYTES % 4.3 % (18.0-39.1); MEAN CORPUSCULAR HEMOGLOBIN 30.9 pg (28-32); MEAN CORPUSCULAR HGB CONC 32.7 g/dL (31-35); MEAN CORPUSCULAR VOLUME 94.4 fL (81-99); MONOCYTES # (AUTO) 0.8 (0.2-0.8); NEUTROPHILS # (AUTO) 11.8 (2.1-6.9); NEUTROPHILS % 85.5 % (38.7-80.0); PLATELET COUNT 273 x10e3/uL (140-360); RED BLOOD COUNT 2.69 x10e6/uL (3.6-5.1); RED CELL DISTRIBUTION WIDTH 14.5 % (11.7-14.4)
[2020-10-31 05:14] LABS: ALBUMIN 2.4 g/dL (3.5-5.0); ALBUMIN/GLOBULIN RATIO 0.9 (0.8-2.0); ANION GAP 14.7 mmol/L (8-16); CALCIUM 9.8 mg/dL (8.4-10.2); CREATININE, SERUM 1.8 mg/dL (0.57-1.11)
[2020-10-31 05:27] LABS: POTASSIUM 2.7 mmol/L (3.5-5.1)
[2020-10-31] MEDS ORDERED: MAGNESIUM SULF 1GRAM/DEXTROSE 100 ML IV ONE ×2 (07:15→18:45)
[2020-10-31] MEDS: INSULIN LISPRO 100 UNIT/1 ML 3ML VIAL SQ SCH ×4 (07:30→21:00)
[2020-10-31] MEDS ORDERED: POTASSIUM CHLORIDE 10MEQ/100ML 400 ML IV ONE (07:30)
[2020-10-31] MEDS ORDERED: MAGNESIUM SULFATE 2GM/50ML 50 ML IV ONE (08:30)
[2020-10-31] MEDS: FUROSEMIDE INJ 10 MG/ML 4 ML VIAL IV SCH (08:41)
[2020-10-31] MEDS: CEFTRIAXONE 1 GM in SODIUM CHLORIDE 0.9% 50ML 50 ML IV SCH ×2 (08:41→20:40)
[2020-10-31] MEDS: HYDRALAZINE HCL 25 MG TAB PO SCH ×3 (08:42→17:00)
[2020-10-31] MEDS: AMLODIPINE BESYLATE 10 MG TAB PO SCH ×2 (08:44→09:00)
[2020-10-31] MEDS: HEPARIN SOD (PORCINE) 5,000 UNIT/ML VIAL SC SCH ×2 (08:45→21:00)
[2020-10-31] MEDS: NEBIVOLOL HCL 2.5 MG TABLET PO SCH ×3 (09:00→20:40)
[2020-10-31] MEDS: CALCITONIN SALMON SCH (09:54)
[2020-10-31] MEDS: VANCOMYCIN 750MG/NS 150ML IVPB 150 ML IV SCH (14:19)
[2020-10-31] MEDS: HYDRALAZINE HCL 20 MG/ML VIAL IV PRN ×2 (15:49→20:42)
[2020-10-31] MEDS: LABETALOL HCL 5 MG/ML 20ML VIAL IV PRN (17:22)
[2020-10-31 17:32] LABS: ANION GAP 17.6 mmol/L (8-16); CALCIUM 9.4 mg/dL (8.4-10.2); CREATININE, SERUM 1.61 mg/dL (0.57-1.11)
[2020-10-31 17:34] LABS: POTASSIUM 2.6 mmol/L (3.5-5.1)
[2020-10-31] MEDS ORDERED: POTASSIUM CHLORIDE 20MEQ/100ML 200 ML IV ONE (18:45)
[2020-10-31] MEDS: FAMOTIDINE 20 MG/2 ML VIAL IV SCH (20:40)
[2020-11-01] VITALS (23 sets, daily range): BP systolic 109–176; BP diastolic 43–142
[2020-11-01 04:59] LABS: BASOPHILS # (AUTO) 0.1 (0.0-0.1); BASOPHILS % 0.7 % (0.0-1.0); EOSINOPHILS # (AUTO) 0.5 (0.0-0.4); EOSINOPHILS % 3.8 % (0.0-6.0); HEMOGLOBIN 8.3 g/dL (12.0-16.0); LYMPHOCYTES # (AUTO) 0.6 (1.0-3.2); LYMPHOCYTES % 4.7 % (18.0-39.1); MEAN CORPUSCULAR HEMOGLOBIN 31.2 pg (28-32); MEAN CORPUSCULAR HGB CONC 33.2 g/dL (31-35); MONOCYTES # (AUTO) 0.9 (0.2-0.8); NEUTROPHILS # (AUTO) 10.6 (2.1-6.9); NEUTROPHILS % 82.6 % (38.7-80.0); PLATELET COUNT 304 x10e3/uL (140-360); RED BLOOD COUNT 2.66 x10e6/uL (3.6-5.1); RED CELL DISTRIBUTION WIDTH 14.7 % (11.7-14.4)
[2020-11-01] MEDS: SODIUM CHLORIDE 0.9% 1000ML 1,000 ML IV SCH ×2 (05:32→12:23)
[2020-11-01 05:34] LABS: ANION GAP 16.4 mmol/L (8-16); CREATININE, SERUM 1.56 mg/dL (0.57-1.11)
[2020-11-01 05:35] LABS: POTASSIUM 2.4 mmol/L (3.5-5.1)
[2020-11-01] MEDS: LABETALOL HCL 5 MG/ML 20ML VIAL IV PRN (05:48)
[2020-11-01] MEDS ORDERED: POTASSIUM CHLORIDE 20MEQ/100ML 300 ML IV ONE (06:45)
[2020-11-01] MEDS: INSULIN LISPRO 100 UNIT/1 ML 3ML VIAL SQ SCH ×4 (07:30→20:31)
[2020-11-01] MEDS: HYDRALAZINE HCL 25 MG TAB PO SCH ×2 (08:50→17:00)
[2020-11-01] MEDS: NEBIVOLOL HCL 2.5 MG TABLET PO SCH ×3 (08:50→20:07)
[2020-11-01] MEDS: AMLODIPINE BESYLATE 10 MG TAB PO SCH (08:51)
[2020-11-01] MEDS: FUROSEMIDE INJ 10 MG/ML 4 ML VIAL IV SCH (09:05)
[2020-11-01] MEDS: CEFTRIAXONE 1 GM in SODIUM CHLORIDE 0.9% 50ML 50 ML IV SCH ×2 (09:05→20:30)
[2020-11-01] MEDS: CALCITONIN SALMON SCH (09:29)
[2020-11-01] MEDS: HEPARIN SOD (PORCINE) 5,000 UNIT/ML VIAL SC SCH ×2 (09:30→20:31)
[2020-11-01] MEDS ORDERED: HYDRALAZINE HCL 20 MG/ML VIAL IV PRN (10:30)
[2020-11-01] MEDS ORDERED: PROPOFOL IV EMULSION 10 MG/ML 20 ML VIAL ONE (11:44)
[2020-11-01] MEDS ORDERED: POVIDONE IODINE 0.05% 0.05 % ML PO ONE (11:44)
[2020-11-01] MEDS ORDERED: LIDOCAINE HCL 2% LOCAL INJ 5 ML SDV VIAL INJ ONE (11:44)
[2020-11-01] MEDS: VANCOMYCIN 750MG/NS 150ML IVPB 150 ML IV SCH (13:19)
[2020-11-01 13:54] LABS: ANION GAP 16.8 mmol/L (8-16); CALCIUM 8.6 mg/dL (8.4-10.2); CREATININE, SERUM 1.48 mg/dL (0.57-1.11)
[2020-11-01 13:56] LABS: POTASSIUM 2.8 mmol/L (3.5-5.1)
[2020-11-01] MEDS ORDERED: BENZOCAINE 20% SPR 60 ML CAN ONE (14:14)
[2020-11-01] MEDS ORDERED: MAGNESIUM SULF 1GRAM/DEXTROSE 100 ML IV ONE (17:00)
[2020-11-01] MEDS: DEXTROSE 5% 1,000 ML IV SCH (17:12)
[2020-11-01] MEDS ORDERED: POTASSIUM CHLORIDE 20MEQ/100ML 200 ML IV ONE (17:15)
[2020-11-01] MEDS: FAMOTIDINE 20 MG/2 ML VIAL IV SCH (20:30)
[2020-11-02] VITALS (25 sets, daily range): BP systolic 137–177; BP diastolic 59–120
[2020-11-02] MEDS: DEXTROSE 5% 1,000 ML IV SCH ×2 (00:53→08:35)
[2020-11-02 05:15] LABS: ANION GAP 14.4 mmol/L (8-16); CALCIUM 8.3 mg/dL (8.4-10.2); CREATININE, SERUM 1.32 mg/dL (0.57-1.11)
[2020-11-02 05:25] LABS: POTASSIUM 2.4 mmol/L (3.5-5.1)
[2020-11-02] MEDS: POTASSIUM CHLORIDE 20MEQ/100ML 100 ML IV SCH ×2 (06:21→08:35)
[2020-11-02] MEDS: INSULIN LISPRO 100 UNIT/1 ML 3ML VIAL SQ SCH ×4 (07:30→20:54)
[2020-11-02] MEDS: CEFTRIAXONE 1 GM in SODIUM CHLORIDE 0.9% 50ML 50 ML IV SCH ×2 (08:35→20:52)
[2020-11-02] MEDS: HYDRALAZINE HCL 25 MG TAB PO SCH ×2 (08:35→16:21)
[2020-11-02] MEDS: NEBIVOLOL HCL 2.5 MG TABLET PO SCH ×3 (08:36→20:54)
[2020-11-02] MEDS: AMLODIPINE BESYLATE 10 MG TAB PO SCH (08:36)
[2020-11-02] MEDS: HEPARIN SOD (PORCINE) 5,000 UNIT/ML VIAL SC SCH ×2 (08:37→20:53)
[2020-11-02 11:49] LABS: MAGNESIUM 1.2 MG/DL (1.3-2.1)
[2020-11-02 11:52] LABS: POTASSIUM 2.7 mmol/L (3.5-5.1)
[2020-11-02] MEDS ORDERED: POTASSIUM CHLORIDE 10MEQ/100ML 600 ML IV ONE (14:00)
[2020-11-02] MEDS ORDERED: MAGNESIUM SULFATE 2GM/50ML 100 ML IV ONE (14:00)
[2020-11-02] MEDS: VANCOMYCIN 750MG/NS 150ML IVPB 150 ML IV SCH (15:13)
[2020-11-02] MEDS: DRONABINOL 2.5MG PO SCH (16:30)
[2020-11-02] MEDS: DEXTROSE 5%/0.9% SOD CHL 1,000 ML IV SCH (16:37)
[2020-11-02] MEDS: FAMOTIDINE 20 MG/2 ML VIAL IV SCH (20:52)
[2020-11-02] MEDS: HYDRALAZINE HCL 20 MG/ML VIAL IV PRN (21:17)
[2020-11-03] VITALS (26 sets, daily range): BP systolic 100–177; BP diastolic 61–128
[2020-11-03] MEDS: DEXTROSE 5%/0.9% SOD CHL 1,000 ML IV SCH ×2 (01:00→13:14)
[2020-11-03 06:13] LABS: BASOPHILS # (AUTO) 0.1 (0.0-0.1); BASOPHILS % 0.5 % (0.0-1.0); EOSINOPHILS # (AUTO) 0.7 (0.0-0.4); EOSINOPHILS % 4.5 % (0.0-6.0); HEMATOCRIT 23.8 % (34.2-44.1); LYMPHOCYTES # (AUTO) 0.8 (1.0-3.2); LYMPHOCYTES % 5.5 % (18.0-39.1); MEAN CORPUSCULAR HEMOGLOBIN 31.1 pg (28-32); MEAN CORPUSCULAR HGB CONC 33.6 g/dL (31-35); MEAN CORPUSCULAR VOLUME 92.6 fL (81-99); MONOCYTES # (AUTO) 1.5 (0.2-0.8); MONOCYTES % 9.9 % (4.4-11.3); NEUTROPHILS # (AUTO) 11.5 (2.1-6.9); NEUTROPHILS % 77.2 % (38.7-80.0); PLATELET COUNT 263 x10e3/uL (140-360); RED BLOOD COUNT 2.57 x10e6/uL (3.6-5.1); RED CELL DISTRIBUTION WIDTH 14.7 % (11.7-14.4)
[2020-11-03 06:31] LABS: CALCIUM 7.4 mg/dL (8.4-10.2); CREATININE, SERUM 1.02 mg/dL (0.57-1.11); MAGNESIUM 1.9 MG/DL (1.3-2.1)
[2020-11-03] MEDS: DRONABINOL 2.5MG PO SCH ×2 (07:46→16:04)
[2020-11-03] MEDS: INSULIN LISPRO 100 UNIT/1 ML 3ML VIAL SQ SCH ×4 (07:46→20:39)
[2020-11-03] MEDS: HEPARIN SOD (PORCINE) 5,000 UNIT/ML VIAL SC SCH ×2 (07:47→20:38)
[2020-11-03] MEDS: CEFTRIAXONE 1 GM in SODIUM CHLORIDE 0.9% 50ML 50 ML IV SCH (08:00)
[2020-11-03] MEDS: HYDRALAZINE HCL 25 MG TAB PO SCH ×2 (08:01→16:04)
[2020-11-03] MEDS: AMLODIPINE BESYLATE 10 MG TAB PO SCH (08:01)
[2020-11-03] MEDS: NEBIVOLOL HCL 2.5 MG TABLET PO SCH ×3 (08:01→20:37)
[2020-11-03] MEDS ORDERED: POTASSIUM CHLORIDE 20MEQ/100ML 100 ML IV ONE ×2 (09:30→10:00)
[2020-11-03] MEDS: VANCOMYCIN 750MG/NS 150ML IVPB 150 ML IV SCH (13:14)
[2020-11-03] MEDS ORDERED: CENTRAL TPN FORMULA 1 BAG IV SCH (20:00)
[2020-11-03] MEDS: FAMOTIDINE 20 MG/2 ML VIAL IV SCH (20:37)
[2020-11-04] VITALS (16 sets, daily range): BP systolic 137–187; BP diastolic 59–97
[2020-11-04 05:30] LABS: BASOPHILS # (AUTO) 0.1 (0.0-0.1); BASOPHILS % 0.6 % (0.0-1.0); EOSINOPHILS # (AUTO) 0.3 (0.0-0.4); EOSINOPHILS % 1.6 % (0.0-6.0); HEMATOCRIT 24.6 % (34.2-44.1); HEMOGLOBIN 8.1 g/dL (12.0-16.0); LYMPHOCYTES # (AUTO) 0.7 (1.0-3.2); LYMPHOCYTES % 3.9 % (18.0-39.1); MEAN CORPUSCULAR HEMOGLOBIN 30.9 pg (28-32); MEAN CORPUSCULAR HGB CONC 32.9 g/dL (31-35); MEAN CORPUSCULAR VOLUME 93.9 fL (81-99); MONOCYTES # (AUTO) 1.6 (0.2-0.8); MONOCYTES % 8.6 % (4.4-11.3); NEUTROPHILS # (AUTO) 15.2 (2.1-6.9); NEUTROPHILS % 83.2 % (38.7-80.0); PLATELET COUNT 264 x10e3/uL (140-360); RED BLOOD COUNT 2.62 x10e6/uL (3.6-5.1); RED CELL DISTRIBUTION WIDTH 15.3 % (11.7-14.4)
[2020-11-04 05:44] LABS: ALBUMIN/GLOBULIN RATIO 0.8 (0.8-2.0); ANION GAP 10.9 mmol/L (8-16); CALCIUM 7.4 mg/dL (8.4-10.2); CREATININE, SERUM 0.87 mg/dL (0.57-1.11)
[2020-11-04 05:46] LABS: POTASSIUM 2.9 mmol/L (3.5-5.1)
[2020-11-04] MEDS: HYDRALAZINE HCL 25 MG TAB PO SCH ×4 (08:01→21:29)
[2020-11-04] MEDS: DRONABINOL 2.5MG PO SCH ×2 (08:01→16:30)
[2020-11-04] MEDS: HEPARIN SOD (PORCINE) 5,000 UNIT/ML VIAL SC SCH ×2 (08:02→20:45)
[2020-11-04] MEDS: AMLODIPINE BESYLATE 10 MG TAB PO SCH (08:02)
[2020-11-04] MEDS: INSULIN LISPRO 100 UNIT/1 ML 3ML VIAL SQ SCH ×4 (08:03→21:00)
[2020-11-04] MEDS: NEBIVOLOL HCL 2.5 MG TABLET PO SCH ×3 (08:04→21:00)
[2020-11-04] MEDS: POTASSIUM CHLORIDE 20MEQ/100ML 100 ML IV SCH ×2 (08:41→11:07)
[2020-11-04] MEDS: VANCOMYCIN 750MG/NS 150ML IVPB 150 ML IV SCH (14:00)
[2020-11-04] MEDS ORDERED: POTASSIUM CHLORIDE 20 MEQ TAB CR PO NR (14:00)
[2020-11-04] MEDS ORDERED: FUROSEMIDE INJ 10 MG/ML 4 ML VIAL IV ONE (20:00)
[2020-11-04] MEDS: CENTRAL TPN FORMULA 1 BAG IV SCH (21:00)
[2020-11-04] MEDS: INSULIN GLARGINE 100 UNITS/ML VIAL SQ SCH (21:00)
[2020-11-04] MEDS: FAMOTIDINE 20 MG/2 ML VIAL IV SCH (21:28)
[2020-11-05] VITALS (7 sets, daily range): BP systolic 121–152; BP diastolic 42–71
[2020-11-05] MEDS: ALBUTEROL/IPRATROPIUM 3 ML NEB NEB SCH ×4 (01:20→19:30)
[2020-11-05 05:48] LABS: BASOPHILS # (AUTO) 0.1 (0.0-0.1); BASOPHILS % 0.6 % (0.0-1.0); EOSINOPHILS # (AUTO) 0.9 (0.0-0.4); HEMATOCRIT 25.6 % (34.2-44.1); HEMOGLOBIN 8.6 g/dL (12.0-16.0); LYMPHOCYTES # (AUTO) 1.4 (1.0-3.2); LYMPHOCYTES % 7.7 % (18.0-39.1); MEAN CORPUSCULAR HEMOGLOBIN 31.4 pg (28-32); MEAN CORPUSCULAR HGB CONC 33.6 g/dL (31-35); MEAN CORPUSCULAR VOLUME 93.4 fL (81-99); MONOCYTES # (AUTO) 1.7 (0.2-0.8); MONOCYTES % 9.1 % (4.4-11.3); NEUTROPHILS # (AUTO) 13.9 (2.1-6.9); NEUTROPHILS % 75.1 % (38.7-80.0); PLATELET COUNT 287 x10e3/uL (140-360); RED BLOOD COUNT 2.74 x10e6/uL (3.6-5.1); RED CELL DISTRIBUTION WIDTH 15.7 % (11.7-14.4)
[2020-11-05 06:29] LABS: ANION GAP 10.3 mmol/L (8-16); CALCIUM 8.1 mg/dL (8.4-10.2); CREATININE, SERUM 1.02 mg/dL (0.57-1.11); POTASSIUM 3.3 mmol/L (3.5-5.1)
[2020-11-05] MEDS: HYDRALAZINE HCL 25 MG TAB PO SCH ×3 (06:38→22:00)
[2020-11-05 06:53] LABS: MAGNESIUM 1.9 MG/DL (1.3-2.1); PHOSPHORUS 2.4 MG/DL (2.3-4.7)
[2020-11-05] MEDS: INSULIN LISPRO 100 UNIT/1 ML 3ML VIAL SQ SCH ×4 (08:00→21:00)
[2020-11-05] MEDS: DRONABINOL 2.5MG PO SCH ×2 (09:25→18:09)
[2020-11-05] MEDS: AMLODIPINE BESYLATE 10 MG TAB PO SCH (09:25)
[2020-11-05] MEDS: NEBIVOLOL HCL 2.5 MG TABLET PO SCH ×3 (09:25→21:00)
[2020-11-05] MEDS ORDERED: POTASSIUM CHLORIDE 10MEQ EA PO ONE (12:30)
[2020-11-05] MEDS ORDERED: POTASSIUM BICARBONATE/CIT AC 20 MEQ TABLET.EFF PO ONE (14:45)
[2020-11-05] MEDS: VANCOMYCIN 750MG/NS 150ML IVPB 150 ML IV SCH (15:09)
[2020-11-05 17:11] LABS: ALPHA 2 GLOBULIN URINE PEP 15.6 % (.)
[2020-11-05] MEDS: CENTRAL TPN FORMULA 1 BAG IV SCH (20:00)
[2020-11-05] MEDS: FAMOTIDINE 20 MG/2 ML VIAL IV SCH (21:00)
[2020-11-05] MEDS: INSULIN GLARGINE 100 UNITS/ML VIAL SQ SCH (21:00)
[2020-11-06] VITALS (8 sets, daily range): BP systolic 109–155; BP diastolic 47–88
[2020-11-06] MEDS: ALBUTEROL/IPRATROPIUM 3 ML NEB NEB SCH ×4 (01:35→19:35)
[2020-11-06] MEDS ORDERED: DEXTROSE 5%/0.45% SOD CHL 1,000 ML IV SCH (04:15)
[2020-11-06 05:19] LABS: BASOPHILS # (AUTO) 0.1 (0.0-0.1); BASOPHILS % 0.5 % (0.0-1.0); EOSINOPHILS % 5.4 % (0.0-6.0); HEMATOCRIT 24.6 % (34.2-44.1); HEMOGLOBIN 8.2 g/dL (12.0-16.0); LYMPHOCYTES # (AUTO) 1.3 (1.0-3.2); LYMPHOCYTES % 6.8 % (18.0-39.1); MEAN CORPUSCULAR HEMOGLOBIN 31.1 pg (28-32); MEAN CORPUSCULAR HGB CONC 33.3 g/dL (31-35); MEAN CORPUSCULAR VOLUME 93.2 fL (81-99); MONOCYTES # (AUTO) 2.1 (0.2-0.8); MONOCYTES % 10.8 % (4.4-11.3); NEUTROPHILS # (AUTO) 14.1 (2.1-6.9); NEUTROPHILS % 73.9 % (38.7-80.0); PLATELET COUNT 301 x10e3/uL (140-360); RED BLOOD COUNT 2.64 x10e6/uL (3.6-5.1); RED CELL DISTRIBUTION WIDTH 16.1 % (11.7-14.4)
[2020-11-06 05:59] LABS: ALBUMIN 2.1 g/dL (3.5-5.0); ALBUMIN/GLOBULIN RATIO 0.7 (0.8-2.0); ANION GAP 11.9 mmol/L (8-16); CALCIUM 8.2 mg/dL (8.4-10.2); CREATININE, SERUM 0.95 mg/dL (0.57-1.11); POTASSIUM 3.9 mmol/L (3.5-5.1)
[2020-11-06] MEDS: HYDRALAZINE HCL 25 MG TAB PO SCH ×2 (06:01→15:15)
[2020-11-06] MEDS: INSULIN LISPRO 100 UNIT/1 ML 3ML VIAL SQ SCH ×4 (08:30→20:58)
[2020-11-06] MEDS: NEBIVOLOL HCL 2.5 MG TABLET PO SCH ×3 (08:43→20:59)
[2020-11-06] MEDS: AMLODIPINE BESYLATE 10 MG TAB PO SCH (08:43)
[2020-11-06] MEDS: DRONABINOL 2.5MG PO SCH ×2 (08:43→17:00)
[2020-11-06] MEDS ORDERED: DAPTOMYCIN 500mg 10ML 400 MG in SODIUM CHLORIDE 0.9% 100 ML IV SCH (16:00)
[2020-11-06] MEDS: FAMOTIDINE 20 MG/2 ML VIAL IV SCH (20:59)
[2020-11-06] MEDS: INSULIN GLARGINE 100 UNITS/ML VIAL SQ SCH (20:59)
[2020-11-07] MEDS ORDERED: BALSAM PERU/CASTOR OIL 60 GM OINT...G. TP SCH (09:00)
== END 2020-11-06 21:34 | disposition home or self-care (01) | DRG 871 ==
LOC: ER 07:51 → ERHOLD 08:20 → MED/SURG 11:55 → ICU 10-29 12:17 → MED/SURG2 11-04 13:21
PROVIDERS: ADMIT Internal Medicine; ATTEND Internal Medicine
PROC: 02HV33Z Insertion of Infusion Device into Superior Vena Cava, Percutaneous Approach (ICD-10-PCS; principal; 2020-10-28)
PROC: B24BZZ4 Ultrasonography of Heart with Aorta, Transesophageal (ICD-10-PCS; 2020-10-28)
PROC: 02HV33Z Insertion of Infusion Device into Superior Vena Cava, Percutaneous Approach (ICD-10-PCS; 2020-11-06)
DX: A41.02 Sepsis due to Methicillin resistant Staphylococcus aureus (principal); J69.0 Pneumonitis due to inhalation of food and vomit; G93.41 Metabolic encephalopathy; D84.9 Immunodeficiency, unspecified; N17.9 Acute kidney failure, unspecified; I38 Endocarditis, valve unspecified; E87.0 Hyperosmolality and hypernatremia; I13.0 Hypertensive heart and chronic kidney disease with heart failure and stage 1 through stage 4 chronic kidney disease, or unspecified chronic kidney disease; E44.0 Moderate protein-calorie malnutrition; I50.9 Heart failure, unspecified; N18.9 Chronic kidney disease, unspecified; E11.22 Type 2 diabetes mellitus with diabetic chronic kidney disease; E83.42 Hypomagnesemia; E11.649 Type 2 diabetes mellitus with hypoglycemia without coma; M06.9 Rheumatoid arthritis, unspecified; E83.52 Hypercalcemia; E87.6 Hypokalemia; K11.20 Sialoadenitis, unspecified; Z91.81 History of falling; F32.9 Major depressive disorder, single episode, unspecified; Z96.653 Presence of artificial knee joint, bilateral; M81.0 Age-related osteoporosis without current pathological fracture; E87.8 Other disorders of electrolyte and fluid balance, not elsewhere classified; Z68.24 Body mass index [BMI] 24.0-24.9, adult; E86.0 Dehydration; Z79.4 Long term (current) use of insulin; R01.1 Cardiac murmur, unspecified; E11.42 Type 2 diabetes mellitus with diabetic polyneuropathy; Z79.899 Other long term (current) drug therapy; D64.9 Anemia, unspecified; Z88.2 Allergy status to sulfonamides; Z88.1 Allergy status to other antibiotic agents; Z88.0 Allergy status to penicillin; Z91.013 Allergy to seafood; Z20.822 Contact with and (suspected) exposure to COVID-19
CPT/HCPCS: 36415; 36569; 70450; 70486; 71045; 71250; 72125; 74176; 74230; 76770; 77075; 80048; 80053; 80076; 80202; 81001; 82150; 82550; 82553; 82948; 83036; 83519; 83690; 83735; 83880; 83970; 84100; 84132; 84165; 84166; 84439; 84443; 84484; 85025; 85610; 85730; 87040; 87071; 87086; 87186; 87205; 93005; 93306; 93307; 93312; 93325; 96361; 97139; 99251; 99284; J0360; J0696; J1644; J1940; J2001; J2185; J2430; J3370; J3475; J3480; J7030; J7040; J7042; J7050; J7070; J7121; J7799; U0002

== ENCOUNTER 2021-04-12 19:26 | Inpatient (IN) | payer MEDICARE ==
[~2021-04-12] VITALS: Ht 320 cm; Wt 68.9 kg
[~2021-04-12 19:26] MED LIST changes: +COLACE100 MG PO; +CRESTOR10 MG PO; +FEROSUL325 MG PO; +MIRALAX17 GM PO; +MULTI-VITAMIN1 EACH PO; +calcium PO; +eye health complex PO; +ipratropium bromide; +magnesium PO; +tumeric curcumin PO
[2021-04-12 20:22] LABS: BASOPHILS % 0.5 % (0.0-1.0); EOSINOPHILS % 0.5 % (0.0-6.0); HEMATOCRIT 29.2 % (34.2-44.1); HEMOGLOBIN 9.5 g/dL (12.0-16.0); LYMPHOCYTES # (AUTO) 1.1 (1.0-3.2); LYMPHOCYTES % 13.1 % (18.0-39.1); MEAN CORPUSCULAR HEMOGLOBIN 29.1 pg (28-32); MEAN CORPUSCULAR HGB CONC 32.5 g/dL (31-35); MEAN CORPUSCULAR VOLUME 89.3 fL (81-99); MONOCYTES # (AUTO) 0.6 (0.2-0.8); MONOCYTES % 7.1 % (4.4-11.3); NEUTROPHILS # (AUTO) 6.8 (2.1-6.9); NEUTROPHILS % 78.5 % (38.7-80.0); PLATELET COUNT 280 x10e3/uL (140-360); RED BLOOD COUNT 3.27 x10e6/uL (3.6-5.1); RED CELL DISTRIBUTION WIDTH 16.4 % (11.7-14.4)
[2021-04-12 20:49] LABS: ALBUMIN 3.9 g/dL (3.5-5.0); ALBUMIN/GLOBULIN RATIO 1.6 (0.8-2.0); ANION GAP 13.2 mmol/L (8-16); CALCIUM 8.7 mg/dL (8.4-10.2); CREATININE, SERUM 0.94 mg/dL (0.57-1.11); POTASSIUM 4.2 mmol/L (3.5-5.1)
[2021-04-12 20:56] LABS: CREATINE KINASE MB 1.2 ng/mL (0-5.0)
[2021-04-12] MEDS ORDERED: ONDANSETRON HCL INJ 2MG/ML 2ML 2 MG/ML VIAL IV PRN (21:30)
[2021-04-12] MEDS ORDERED: SODIUM CHLORIDE FLUSH 10 ML SYR INJ PRN (21:30)
[2021-04-12] MEDS ORDERED: Morphine 2mg Syringe 2 MG/ML SYR IV PRN (21:30)
[2021-04-12] MEDS ORDERED: DEXTROSE 50% SYRINGE 50 ML IV PRN (21:30)
[2021-04-13] VITALS (8 sets, daily range): BP systolic 128–159; BP diastolic 46–64
[2021-04-13 07:03] LABS: BASOPHILS % 0.6 % (0.0-1.0); EOSINOPHILS # (AUTO) 0.1 (0.0-0.4); EOSINOPHILS % 1.8 % (0.0-6.0); HEMATOCRIT 24.2 % (34.2-44.1); HEMOGLOBIN 7.9 g/dL (12.0-16.0); LYMPHOCYTES # (AUTO) 1.8 (1.0-3.2); LYMPHOCYTES % 24.9 % (18.0-39.1); MEAN CORPUSCULAR HEMOGLOBIN 29.4 pg (28-32); MEAN CORPUSCULAR HGB CONC 32.6 g/dL (31-35); MONOCYTES # (AUTO) 0.7 (0.2-0.8); MONOCYTES % 10.2 % (4.4-11.3); NEUTROPHILS # (AUTO) 4.5 (2.1-6.9); NEUTROPHILS % 62.2 % (38.7-80.0); PLATELET COUNT 227 x10e3/uL (140-360); RED BLOOD COUNT 2.69 x10e6/uL (3.6-5.1); RED CELL DISTRIBUTION WIDTH 16.5 % (11.7-14.4)
[2021-04-13 07:23] LABS: ANION GAP 12.6 mmol/L (8-16); CALCIUM 8.2 mg/dL (8.4-10.2); CHOL/HDL RATIO 2.1 (3.0-3.6); CREATININE, SERUM 0.85 mg/dL (0.57-1.11); POTASSIUM 3.6 mmol/L (3.5-5.1)
[2021-04-13] MEDS: INSULIN REGULAR, HUMAN 100 UNIT/1 ML SQ SCH ×4 (07:30→20:16)
[2021-04-13] MEDS ORDERED: POLYETHYLENE GLYCOL 3350 17 GM PACK PO PRN (08:30)
[2021-04-13] MEDS ORDERED: METHOTREXATE SOD 2.5 MG TAB PO SCH (08:30)
[2021-04-13] MEDS ORDERED: TRAMADOL HCL 50 MG TAB PO PRN (08:30)
[2021-04-13] MEDS: HYDRALAZINE HCL 25 MG TAB PO SCH ×4 (08:43→20:16)
[2021-04-13] MEDS: FERROUS SULFATE 325 MG TAB PO SCH (08:44)
[2021-04-13] MEDS: MULTIVITAMINS/MINERALS TAB PO SCH (08:45)
[2021-04-13] MEDS: FOLIC ACID 1 MG TAB PO SCH (08:55)
[2021-04-13] MEDS ORDERED: IRBESARTAN 150 MG TAB PO SCH (09:00)
[2021-04-13] MEDS ORDERED: BUDESONIDE/FORMOTEROL 160/4.5MCG INHALER INH SCH (09:00)
[2021-04-13] MEDS ORDERED: CYCLOBENZAPRINE HCL 10 MG TAB PO SCH (09:00)
[2021-04-13] MEDS ORDERED: BUPROPION HCL 150 MG TABCR PO SCH (09:00)
[2021-04-13] MEDS ORDERED: GLIPIZIDE 5 MG TAB ER PO SCH (09:00)
[2021-04-13] MEDS ORDERED: SIMVASTATIN 20 MG TAB PO SCH (09:00)
[2021-04-13] MEDS ORDERED: NEBIVOLOL HCL 2.5 MG TABLET PO SCH (09:00)
[2021-04-13] MEDS ORDERED: PANTOPRAZOLE SOD 40 MG TABEC PO SCH (09:00)
[2021-04-13] MEDS ORDERED: DOCUSATE SODIUM 100 MG CAP PO SCH (09:00)
[2021-04-13] MEDS ORDERED: AMLODIPINE BESYLATE 10 MG TAB PO SCH (09:00)
[2021-04-13] MEDS ORDERED: METFORMIN HCL 500 MG TAB PO SCH (09:00)
[2021-04-13] MEDS ORDERED: CELECOXIB 100 MG CAP PO SCH (09:00)
[2021-04-13] MEDS ORDERED: ELIQUIS2.5 MG PO (12:47)
[2021-04-13] MEDS ORDERED: BENICAR20 MG PO (12:47)
[2021-04-13] MEDS ORDERED: METOPROLOL TART50 MG PO (12:47)
[2021-04-13] MEDS ORDERED: HYDROCHLOROTHIA25 MG PO (12:47)
[2021-04-13] MEDS ORDERED: MEDROL4 MG PO (12:47)
[2021-04-13] MEDS: METOPROLOL TARTRATE 50 MG TAB PO SCH (17:00)
[2021-04-13 17:41] LABS: CREATINE KINASE MB 0.8 ng/mL (0-5.0)
[2021-04-13] MEDS ORDERED: CRESTOR 10MG PO SCH (21:00)
[2021-04-14 00:02] VITALS: BP 150/51
[2021-04-14 04:52] VITALS: BP 139/60
[2021-04-14 05:12] LABS: BASOPHILS # (AUTO) 0.1 (0.0-0.1); BASOPHILS % 1.1 % (0.0-1.0); EOSINOPHILS # (AUTO) 0.3 (0.0-0.4); EOSINOPHILS % 3.2 % (0.0-6.0); HEMATOCRIT 26.9 % (34.2-44.1); LYMPHOCYTES # (AUTO) 1.9 (1.0-3.2); LYMPHOCYTES % 22.9 % (18.0-39.1); MEAN CORPUSCULAR HEMOGLOBIN 29.8 pg (28-32); MEAN CORPUSCULAR HGB CONC 33.5 g/dL (31-35); MEAN CORPUSCULAR VOLUME 89.1 fL (81-99); MONOCYTES # (AUTO) 0.8 (0.2-0.8); NEUTROPHILS # (AUTO) 5.3 (2.1-6.9); NEUTROPHILS % 63.2 % (38.7-80.0); PLATELET COUNT 210 x10e3/uL (140-360); RED BLOOD COUNT 3.02 x10e6/uL (3.6-5.1); RED CELL DISTRIBUTION WIDTH 16.3 % (11.7-14.4)
[2021-04-14 05:36] LABS: ALBUMIN 2.9 g/dL (3.5-5.0); ALBUMIN/GLOBULIN RATIO 1.4 (0.8-2.0); ANION GAP 9.9 mmol/L (8-16); CALCIUM 8.3 mg/dL (8.4-10.2); CREATININE, SERUM 0.82 mg/dL (0.57-1.11); POTASSIUM 3.9 mmol/L (3.5-5.1)
[2021-04-14] MEDS: INSULIN REGULAR, HUMAN 100 UNIT/1 ML SQ SCH ×2 (07:30→11:30)
[2021-04-14 07:43] VITALS: BP 161/49
[2021-04-14] MEDS: HYDRALAZINE HCL 25 MG TAB PO SCH (08:20)
[2021-04-14] MEDS: METOPROLOL TARTRATE 50 MG TAB PO SCH (08:20)
[2021-04-14] MEDS: FOLIC ACID 1 MG TAB PO SCH (08:20)
[2021-04-14] MEDS: FERROUS SULFATE 325 MG TAB PO SCH (08:20)
[2021-04-14] MEDS: MULTIVITAMINS/MINERALS TAB PO SCH (08:21)
[2021-04-14] MEDS ORDERED: OLMESARTAN 20 MG TAB PO SCH (09:00)
[2021-04-14] MEDS ORDERED: NEBIVOLOL 10 MG TAB PO SCH (09:00)
[2021-04-14] MEDS ORDERED: HYDROCHLOROTHIAZIDE 25 MG TAB PO SCH (09:00)
[2021-04-14 10:22] VITALS: BP 161/49
[2021-04-14 11:37] VITALS: BP 152/44
[2021-04-14] MEDS ORDERED: TRAMADOL HCL 50 MG TAB PO PRN (15:30)
[2021-04-14 15:39] VITALS: BP 148/50
[2021-04-14] MEDS ORDERED: METHOTREXATE SOD 2.5 MG TAB PO SCH (16:30)
== END 2021-04-14 16:03 | disposition home or self-care (01) | DRG 313 ==
LOC: ER 20:00 → ERHOLD 21:25 → MED/SURG 04-13 01:01 → OBSVTOIN 04-14 11:37
PROVIDERS: ADMIT Internal Medicine; ATTEND Internal Medicine
DX: R07.9 Chest pain, unspecified (principal); E87.1 Hypo-osmolality and hyponatremia; I10 Essential (primary) hypertension; E11.9 Type 2 diabetes mellitus without complications; Z88.8 Allergy status to other drugs, medicaments and biological substances; Z88.1 Allergy status to other antibiotic agents; Z88.0 Allergy status to penicillin; Z91.013 Allergy to seafood; Z20.822 Contact with and (suspected) exposure to COVID-19; E78.00 Pure hypercholesterolemia, unspecified; M06.9 Rheumatoid arthritis, unspecified; Z96.653 Presence of artificial knee joint, bilateral; Z86.14 Personal history of Methicillin resistant Staphylococcus aureus infection; R53.1 Weakness; M19.012 Primary osteoarthritis, left shoulder
CPT/HCPCS: 36415; 71045; 80048; 80053; 80061; 82550; 82553; 82948; 83880; 84484; 85025; 85379; 93005; 93306; 94799; 99284; G0378; J8610; U0002

== ENCOUNTER 2021-04-15 03:07 | Inpatient (IN) | payer MEDICARE ==
[~2021-04-15] VITALS: Ht 320 cm; Wt 68.9 kg
[~2021-04-15 03:07] MED LIST changes: +BENICAR20 MG PO; +ELIQUIS2.5 MG PO; +HYDROCHLOROTHIA25 MG PO; +MEDROL4 MG PO; +METOPROLOL TART50 MG PO
[2021-04-15] MEDS ORDERED: HYDRALAZINE HCL 20 MG/ML VIAL IV STA (04:05)
[2021-04-15 04:25] LABS: BASOPHILS # (AUTO) 0.1 (0.0-0.1); BASOPHILS % 0.6 % (0.0-1.0); EOSINOPHILS # (AUTO) 0.3 (0.0-0.4); EOSINOPHILS % 2.5 % (0.0-6.0); HEMATOCRIT 30.8 % (34.2-44.1); HEMOGLOBIN 10.3 g/dL (12.0-16.0); LYMPHOCYTES # (AUTO) 1.1 (1.0-3.2); LYMPHOCYTES % 11.3 % (18.0-39.1); MEAN CORPUSCULAR HEMOGLOBIN 29.9 pg (28-32); MEAN CORPUSCULAR HGB CONC 33.4 g/dL (31-35); MEAN CORPUSCULAR VOLUME 89.3 fL (81-99); MONOCYTES # (AUTO) 0.9 (0.2-0.8); MONOCYTES % 9.2 % (4.4-11.3); NEUTROPHILS # (AUTO) 7.6 (2.1-6.9); NEUTROPHILS % 76.1 % (38.7-80.0); PLATELET COUNT 268 x10e3/uL (140-360); RED BLOOD COUNT 3.45 x10e6/uL (3.6-5.1); RED CELL DISTRIBUTION WIDTH 16.2 % (11.7-14.4)
[2021-04-15] MEDS ORDERED: ONDANSETRON HCL INJ 2MG/ML 2ML 2 MG/ML VIAL IV STA (04:57)
[2021-04-15] MEDS ORDERED: Morphine 4mg Syringe 4 MG/ML INJ IV ONE (05:00)
[2021-04-15] MEDS ORDERED: IOPAMIDOL 370 MG/ML 200 ML INFUS..BTL INJ ONE (06:03)
[2021-04-15] MEDS ORDERED: SODIUM CHLORIDE 0.9% 50ML 50 ML ONE (06:03)
[2021-04-15] MEDS ORDERED: METRONIDAZOLE 500MG/NS 100ML 100 ML IV STA (06:24)
[2021-04-15] MEDS ORDERED: LEVOFLOXACIN 750MG/D5W 150ML 150 ML IV STA (06:24)
[2021-04-15 06:43] LABS: CLARITY,URINE SL CLOUDY (CLEAR); COLOR,URINE YELLOW (YELLOW); LEUKOCYTE ESTERASE ,URINE TRACE (NEGATIVE); NITRITE,URINE NEGATIVE (NEGATIVE)
[2021-04-15 06:44] LABS: KETONES,URINE NEGATIVE (NEGATIVE); PROTEIN,URINE DIPSTICK NEGATIVE (NEGATIVE); URINE UROBILINOGEN 0.2 mg/dL (0.2 - 1)
[2021-04-15] MEDS ORDERED: MEROPENEM 1 GM in SODIUM CHLORIDE 0.9% 100 ML IV ONE (06:45)
[2021-04-15 06:53] LABS: BACTERIA,URINE MANY /HPF; EPITHELIAL CELLS,URINE RARE /LPF; RBC,URINE 0-5 /HPF (0-5)
[2021-04-15 07:04] LABS: ALBUMIN 3.7 g/dL (3.5-5.0); ALBUMIN/GLOBULIN RATIO 1.2 (0.8-2.0); ANION GAP 15.3 mmol/L (8-16); CALCIUM 8.7 mg/dL (8.4-10.2); CREATININE, SERUM 0.82 mg/dL (0.57-1.11); POTASSIUM 4.3 mmol/L (3.5-5.1)
[2021-04-15] MEDS: SODIUM CHLORIDE 0.9% 1000ML 1,000 ML IV SCH (08:28)
[2021-04-15] MEDS: Morphine 2mg Syringe 2 MG/ML SYR IV PRN ×2 (09:43→14:00)
[2021-04-15] MEDS ORDERED: ONDANSETRON HCL INJ 2MG/ML 2ML 2 MG/ML VIAL IV PRN (12:15)
[2021-04-15] MEDS ORDERED: ACETAMINOPHEN 325 MG TAB PO PRN (12:15)
[2021-04-15] MEDS ORDERED: DEXTROSE 50% SYRINGE 50 ML IV PRN (13:15)
[2021-04-15] MEDS: HYDRALAZINE HCL 20 MG/ML VIAL IV PRN (14:00)
[2021-04-15] MEDS ORDERED: HYDROMORPHONE 1MG/1ML INJ IV PRN (15:45)
[2021-04-15 15:51] VITALS: BP 177/67
[2021-04-15 15:55] VITALS: BP 177/67
[2021-04-15] MEDS: METOPROLOL TARTRATE 50 MG TAB PO SCH ×2 (16:31→21:14)
[2021-04-15] MEDS: CLINDAMYCIN PHOS 900MG/ 50ML 50 ML IV SCH (16:31)
[2021-04-15] MEDS: MEROPENEM 500 MG in SODIUM CHLORIDE 0.9% 50ML 50 ML IV SCH (17:09)
[2021-04-15] MEDS: HYDRALAZINE HCL 25 MG TAB PO SCH ×2 (17:40→21:14)
[2021-04-15] MEDS ORDERED: METRONIDAZOLE 500MG/NS 100ML 100 ML IV SCH (18:00)
[2021-04-15 20:17] VITALS: BP 179/58
[2021-04-15 21:01] VITALS: BP 179/58
[2021-04-16] VITALS (8 sets, daily range): BP systolic 115–162; BP diastolic 46–76
[2021-04-16] MEDS: CLINDAMYCIN PHOS 900MG/ 50ML 50 ML IV SCH ×3 (00:33→16:18)
[2021-04-16] MEDS: SODIUM CHLORIDE 0.9% 1000ML 1,000 ML IV SCH (00:35)
[2021-04-16] MEDS: MEROPENEM 500 MG in SODIUM CHLORIDE 0.9% 50ML 50 ML IV SCH ×3 (02:15→17:20)
[2021-04-16 06:19] LABS: BASOPHILS # (AUTO) 0.1 (0.0-0.1); BASOPHILS % 0.2 % (0.0-1.0); HEMATOCRIT 31.8 % (34.2-44.1); HEMOGLOBIN 10.6 g/dL (12.0-16.0); LYMPHOCYTES # (AUTO) 0.6 (1.0-3.2); LYMPHOCYTES % 1.9 % (18.0-39.1); MEAN CORPUSCULAR HEMOGLOBIN 29.9 pg (28-32); MEAN CORPUSCULAR HGB CONC 33.3 g/dL (31-35); MEAN CORPUSCULAR VOLUME 89.6 fL (81-99); MONOCYTES # (AUTO) 1.3 (0.2-0.8); MONOCYTES % 4.1 % (4.4-11.3); NEUTROPHILS # (AUTO) 29.5 (2.1-6.9); NEUTROPHILS % 91.6 % (38.7-80.0); PLATELET COUNT 246 x10e3/uL (140-360); RED BLOOD COUNT 3.55 x10e6/uL (3.6-5.1); RED CELL DISTRIBUTION WIDTH 16.4 % (11.7-14.4)
[2021-04-16 06:51] LABS: ALBUMIN/GLOBULIN RATIO 1.1 (0.8-2.0); ANION GAP 11.4 mmol/L (8-16); CALCIUM 8.3 mg/dL (8.4-10.2); CREATININE, SERUM 0.81 mg/dL (0.57-1.11); POTASSIUM 3.4 mmol/L (3.5-5.1)
[2021-04-16 08:06] LABS: BAND NEUTROPHILS % (MANUAL) 1 %; LYMPHOCYTES % (MANUAL) 2 % (19-48); MONOCYTES % (MANUAL) 3 % (3.4-9.0); NEUTROPHILS % (MANUAL) 94 % (40-74)
[2021-04-16 08:07] LABS: ANISOCYTOSIS SLIGHT; HYPOCHROMASIA SLIGHT; PLATELET ESTIMATE ADEQUATE; PLATELET MORPHOLOGY COMMENT NORMAL; RBC MORPHOLOGY COMMENT NORMAL
[2021-04-16] MEDS ORDERED: CEFTRIAXONE 1 GM in SODIUM CHLORIDE 0.9% 50ML 50 ML IV SCH (09:00)
[2021-04-16] MEDS: MULTIVITAMINS/MINERALS TAB PO SCH (09:23)
[2021-04-16] MEDS: METOPROLOL TARTRATE 50 MG TAB PO SCH ×3 (09:24→21:21)
[2021-04-16] MEDS: OLMESARTAN 20 MG TAB PO SCH (09:24)
[2021-04-16] MEDS: HYDRALAZINE HCL 25 MG TAB PO SCH ×4 (09:25→21:00)
[2021-04-16] MEDS ORDERED: POTASSIUM CHLORIDE 20MEQ/15ML UDC PO ONE (10:45)
[2021-04-16 10:54] LABS: BASOPHILS # (AUTO) 0.1 (0.0-0.1); BASOPHILS % 0.2 % (0.0-1.0); EOSINOPHILS % 0.1 % (0.0-6.0); LYMPHOCYTES # (AUTO) 0.6 (1.0-3.2); LYMPHOCYTES % 1.5 % (18.0-39.1); MEAN CORPUSCULAR HEMOGLOBIN 29.5 pg (28-32); MEAN CORPUSCULAR HGB CONC 32.4 g/dL (31-35); MEAN CORPUSCULAR VOLUME 91.2 fL (81-99); MONOCYTES # (AUTO) 1.6 (0.2-0.8); MONOCYTES % 4.2 % (4.4-11.3); NEUTROPHILS # (AUTO) 34.6 (2.1-6.9); NEUTROPHILS % 91.6 % (38.7-80.0); PLATELET COUNT 252 x10e3/uL (140-360); RED BLOOD COUNT 3.73 x10e6/uL (3.6-5.1); RED CELL DISTRIBUTION WIDTH 16.7 % (11.7-14.4)
[2021-04-16] MEDS ORDERED: KCL 20 MEQ PACKET/ ORAL SOLN PO ONE (11:00)
[2021-04-16 11:15] LABS: ANION GAP 13.7 mmol/L (8-16); CALCIUM 8.6 mg/dL (8.4-10.2); CREATININE, SERUM 0.8 mg/dL (0.57-1.11); POTASSIUM 3.7 mmol/L (3.5-5.1)
[2021-04-16] MEDS ORDERED: HEPARIN SOD (PORCINE) 5,000 UNIT/ML VIAL SC NR (19:45)
[2021-04-16] MEDS: SIMVASTATIN 20 MG TAB PO SCH (21:21)
[2021-04-16] MEDS: LACTATED RINGER'S 1,000 ML INJ SCH (22:55)
[2021-04-17] VITALS (8 sets, daily range): BP systolic 121–154; BP diastolic 40–72
[2021-04-17] MEDS: MEROPENEM 500 MG in SODIUM CHLORIDE 0.9% 50ML 50 ML IV SCH ×2 (00:50→08:48)
[2021-04-17] MEDS: HYDRALAZINE HCL 20 MG/ML VIAL IV PRN (03:32)
[2021-04-17] MEDS: LACTATED RINGER'S 1,000 ML INJ SCH ×2 (05:18→15:15)
[2021-04-17 05:32] LABS: BASOPHILS # (AUTO) 0.1 (0.0-0.1); BASOPHILS % 0.3 % (0.0-1.0); HEMATOCRIT 28.9 % (34.2-44.1); HEMOGLOBIN 9.7 g/dL (12.0-16.0); LYMPHOCYTES # (AUTO) 0.7 (1.0-3.2); MEAN CORPUSCULAR HEMOGLOBIN 29.8 pg (28-32); MEAN CORPUSCULAR HGB CONC 33.6 g/dL (31-35); MEAN CORPUSCULAR VOLUME 88.7 fL (81-99); MONOCYTES # (AUTO) 1.5 (0.2-0.8); MONOCYTES % 4.3 % (4.4-11.3); NEUTROPHILS # (AUTO) 29.9 (2.1-6.9); NEUTROPHILS % 88.8 % (38.7-80.0); PLATELET COUNT 221 x10e3/uL (140-360); RED BLOOD COUNT 3.26 x10e6/uL (3.6-5.1); RED CELL DISTRIBUTION WIDTH 16.7 % (11.7-14.4)
[2021-04-17 05:41] LABS: INR 1.64; PROTHROMBIN TIME 20.7 seconds (11.9-14.5)
[2021-04-17 05:42] LABS: PARTIAL THROMBOPLASTIN TIME 46.6 seconds (23.8-35.5)
[2021-04-17 06:00] LABS: ANION GAP 11.7 mmol/L (8-16); CREATININE, SERUM 0.82 mg/dL (0.57-1.11); POTASSIUM 3.7 mmol/L (3.5-5.1)
[2021-04-17 06:21] LABS: ALBUMIN 2.6 g/dL (3.5-5.0); BILIRUBIN,DIRECT 0.4 mg/dL (0.0-0.5)
[2021-04-17 07:40] LABS: BAND NEUTROPHILS % (MANUAL) 2 %; LYMPHOCYTES % (MANUAL) 1 % (19-48); MONOCYTES % (MANUAL) 2 % (3.4-9.0); NEUTROPHILS % (MANUAL) 95 % (40-74); PLATELET ESTIMATE ADEQUATE; PLATELET MORPHOLOGY COMMENT NORMAL; RBC MORPHOLOGY COMMENT NORMAL
[2021-04-17] MEDS: METOPROLOL TARTRATE 50 MG TAB PO SCH ×3 (08:43→21:46)
[2021-04-17] MEDS: HYDRALAZINE HCL 25 MG TAB PO SCH ×4 (08:43→21:41)
[2021-04-17] MEDS: OLMESARTAN 20 MG TAB PO SCH (08:45)
[2021-04-17] MEDS: MULTIVITAMINS/MINERALS TAB PO SCH (08:46)
[2021-04-17] MEDS ORDERED: BUPIVACAINE HCL 0.5% INJ 30 ML VIAL INJ ONE (12:20)
[2021-04-17 13:28] LABS: INR 1.47
[2021-04-17 13:29] LABS: PARTIAL THROMBOPLASTIN TIME 45.1 seconds (23.8-35.5)
[2021-04-17] MEDS ORDERED: NEOSTIGMINE 1 MG/ML 10ML VIAL ONE (13:53)
[2021-04-17] MEDS ORDERED: LIDOCAINE HCL 2% LOCAL INJ 5 ML SDV VIAL INJ ONE (13:53)
[2021-04-17] MEDS ORDERED: POVIDONE IODINE 0.05% 0.05 % ML PO ONE (13:53)
[2021-04-17] MEDS ORDERED: ATROPINE SULFATE 1 MG/ML VIAL ONE (13:53)
[2021-04-17] MEDS ORDERED: PROPOFOL IV EMULSION 10 MG/ML 20 ML VIAL ONE (13:53)
[2021-04-17] MEDS ORDERED: SUCCINYLCHOLINE CHLORIDE 20 MG/ML 10ML VIAL ONE (13:53)
[2021-04-17] MEDS ORDERED: LABETALOL HCL 5 MG/ML 20ML VIAL ONE (13:53)
[2021-04-17] MEDS ORDERED: SEVOFLURANE INHAL SOLN 250 ML PEN BTL ONE (13:53)
[2021-04-17] MEDS ORDERED: ROCURONIUM BROMIDE 10 MG/ML 5ML VIAL IV ONE (13:53)
[2021-04-17] MEDS ORDERED: ONDANSETRON HCL INJ 2MG/ML 2ML 2 MG/ML VIAL IV PRN (16:30)
[2021-04-17] MEDS ORDERED: Morphine 4mg Syringe 4 MG/ML INJ IV PRN (16:30)
[2021-04-17] MEDS ORDERED: ONDANSETRON HCL INJ 2MG/ML 2ML 2 MG/ML VIAL ONE (16:50)
[2021-04-17] MEDS ORDERED: FENTANYL CITRATE/PF 100MCG/2 ML INJ ONE (16:50)
[2021-04-17] MEDS: SODIUM CHLORIDE 0.9% 1000ML 1,000 ML IV SCH (17:38)
[2021-04-17] MEDS: MEROPENEM 1 GM in SODIUM CHLORIDE 0.9% 100 ML IV SCH (17:38)
[2021-04-17] MEDS: SIMVASTATIN 20 MG TAB PO SCH (21:55)
[2021-04-17] MEDS: HYDROCODONE/APAP 5MG-325MG TAB PO PRN (22:04)
[2021-04-18] VITALS (8 sets, daily range): BP systolic 123–150; BP diastolic 45–72
[2021-04-18] MEDS: MEROPENEM 1 GM in SODIUM CHLORIDE 0.9% 100 ML IV SCH ×3 (01:59→18:00)
[2021-04-18] MEDS: SODIUM CHLORIDE 0.9% 1000ML 1,000 ML IV SCH ×2 (01:59→13:13)
[2021-04-18 05:41] LABS: BASOPHILS % 0.2 % (0.0-1.0); EOSINOPHILS # (AUTO) 0.2 (0.0-0.4); EOSINOPHILS % 0.7 % (0.0-6.0); HEMATOCRIT 26.7 % (34.2-44.1); HEMOGLOBIN 8.7 g/dL (12.0-16.0); LYMPHOCYTES # (AUTO) 0.2 (1.0-3.2); MEAN CORPUSCULAR HEMOGLOBIN 29.7 pg (28-32); MEAN CORPUSCULAR HGB CONC 32.6 g/dL (31-35); MEAN CORPUSCULAR VOLUME 91.1 fL (81-99); MONOCYTES # (AUTO) 0.9 (0.2-0.8); MONOCYTES % 3.7 % (4.4-11.3); NEUTROPHILS # (AUTO) 21.5 (2.1-6.9); NEUTROPHILS % 91.4 % (38.7-80.0); PLATELET COUNT 222 x10e3/uL (140-360); RED BLOOD COUNT 2.93 x10e6/uL (3.6-5.1)
[2021-04-18 06:04] LABS: ALBUMIN 2.4 g/dL (3.5-5.0); ALBUMIN/GLOBULIN RATIO 0.8 (0.8-2.0); ANION GAP 14.1 mmol/L (8-16); CALCIUM 8.1 mg/dL (8.4-10.2); POTASSIUM 4.1 mmol/L (3.5-5.1)
[2021-04-18 06:32] LABS: CREATININE, SERUM 0.83 mg/dL (0.57-1.11)
[2021-04-18 08:53] LABS: BAND NEUTROPHILS % (MANUAL) 1 %; MONOCYTES % (MANUAL) 3 % (3.4-9.0); NEUTROPHILS % (MANUAL) 96 % (40-74)
[2021-04-18 08:54] LABS: ANISOCYTOSIS SLIGHT; HYPOCHROMASIA SLIGHT; PLATELET ESTIMATE ADEQUATE; PLATELET MORPHOLOGY COMMENT NORMAL; RBC MORPHOLOGY COMMENT NORMAL
[2021-04-18] MEDS: HYDRALAZINE HCL 25 MG TAB PO SCH ×4 (09:22→21:25)
[2021-04-18] MEDS: OLMESARTAN 20 MG TAB PO SCH (09:22)
[2021-04-18] MEDS: MULTIVITAMINS/MINERALS TAB PO SCH (09:23)
[2021-04-18] MEDS: METOPROLOL TARTRATE 50 MG TAB PO SCH ×2 (09:23→16:49)
[2021-04-18] MEDS ORDERED: CALCIUM CARBONATE 500 MG CHEWABLE TABS PO PRN (10:00)
[2021-04-18] MEDS: FAMOTIDINE 20 MG TAB PO SCH ×2 (10:31→16:48)
[2021-04-18] MEDS: HYDROCODONE/APAP 5MG-325MG TAB PO PRN ×2 (11:08→23:44)
[2021-04-18] MEDS: SIMVASTATIN 20 MG TAB PO SCH (21:25)
[2021-04-19] VITALS (8 sets, daily range): BP systolic 124–174; BP diastolic 40–65
[2021-04-19] MEDS: MEROPENEM 1 GM in SODIUM CHLORIDE 0.9% 100 ML IV SCH ×4 (02:38→19:31)
[2021-04-19 05:57] LABS: BASOPHILS % 0.3 % (0.0-1.0); EOSINOPHILS # (AUTO) 0.1 (0.0-0.4); EOSINOPHILS % 0.5 % (0.0-6.0); HEMATOCRIT 25.9 % (34.2-44.1); HEMOGLOBIN 8.3 g/dL (12.0-16.0); LYMPHOCYTES # (AUTO) 0.9 (1.0-3.2); MEAN CORPUSCULAR HEMOGLOBIN 29.1 pg (28-32); MEAN CORPUSCULAR VOLUME 90.9 fL (81-99); MONOCYTES # (AUTO) 0.9 (0.2-0.8); MONOCYTES % 5.8 % (4.4-11.3); NEUTROPHILS # (AUTO) 13.3 (2.1-6.9); NEUTROPHILS % 86.6 % (38.7-80.0); PLATELET COUNT 255 x10e3/uL (140-360); RED BLOOD COUNT 2.85 x10e6/uL (3.6-5.1); RED CELL DISTRIBUTION WIDTH 16.8 % (11.7-14.4)
[2021-04-19] MEDS: METOPROLOL TARTRATE 50 MG TAB PO SCH ×2 (09:22→17:00)
[2021-04-19] MEDS: FAMOTIDINE 20 MG TAB PO SCH ×2 (09:22→18:47)
[2021-04-19] MEDS: HYDRALAZINE HCL 25 MG TAB PO SCH ×4 (09:22→21:40)
[2021-04-19] MEDS: MULTIVITAMINS/MINERALS TAB PO SCH (09:22)
[2021-04-19] MEDS: OLMESARTAN 20 MG TAB PO SCH (09:22)
[2021-04-19] MEDS: SODIUM CHLORIDE 0.9% 1000ML 1,000 ML IV SCH (10:30)
[2021-04-19] MEDS: SIMVASTATIN 20 MG TAB PO SCH (21:40)
[2021-04-20] VITALS (7 sets, daily range): BP systolic 149–197; BP diastolic 54–92
[2021-04-20] MEDS: HYDRALAZINE HCL 20 MG/ML VIAL IV PRN ×2 (01:00→06:28)
[2021-04-20] MEDS: MEROPENEM 1 GM in SODIUM CHLORIDE 0.9% 100 ML IV SCH ×3 (02:20→17:18)
[2021-04-20] MEDS: SODIUM CHLORIDE 0.9% 1000ML 1,000 ML IV SCH (06:07)
[2021-04-20 07:09] LABS: BASOPHILS # (AUTO) 0.1 (0.0-0.1); BASOPHILS % 0.7 % (0.0-1.0); EOSINOPHILS # (AUTO) 0.3 (0.0-0.4); HEMATOCRIT 28.9 % (34.2-44.1); HEMOGLOBIN 9.1 g/dL (12.0-16.0); LYMPHOCYTES # (AUTO) 1.6 (1.0-3.2); MEAN CORPUSCULAR HEMOGLOBIN 28.9 pg (28-32); MEAN CORPUSCULAR HGB CONC 31.5 g/dL (31-35); MEAN CORPUSCULAR VOLUME 91.7 fL (81-99); MONOCYTES % 11.9 % (4.4-11.3); NEUTROPHILS # (AUTO) 5.3 (2.1-6.9); NEUTROPHILS % 64.7 % (38.7-80.0); PLATELET COUNT 275 x10e3/uL (140-360); RED BLOOD COUNT 3.15 x10e6/uL (3.6-5.1); RED CELL DISTRIBUTION WIDTH 17.2 % (11.7-14.4)
[2021-04-20] MEDS: HYDRALAZINE HCL 25 MG TAB PO SCH ×4 (11:05→20:47)
[2021-04-20] MEDS: FAMOTIDINE 20 MG TAB PO SCH ×2 (11:05→17:19)
[2021-04-20] MEDS: METOPROLOL TARTRATE 50 MG TAB PO SCH ×2 (11:06→17:19)
[2021-04-20] MEDS: OLMESARTAN 20 MG TAB PO SCH (11:06)
[2021-04-20] MEDS: MULTIVITAMINS/MINERALS TAB PO SCH (11:07)
[2021-04-20] MEDS: AMLODIPINE BESYLATE 5 MG TAB PO SCH (17:19)
[2021-04-20] MEDS: ENOXAPARIN SOD INJ 40 MG/0.4 ML SYR SC SCH (17:20)
[2021-04-20] MEDS: SIMVASTATIN 20 MG TAB PO SCH (20:47)
[2021-04-21] VITALS (8 sets, daily range): BP systolic 151–176; BP diastolic 45–65
[2021-04-21] MEDS: MEROPENEM 1 GM in SODIUM CHLORIDE 0.9% 100 ML IV SCH ×3 (01:34→17:11)
[2021-04-21] MEDS: HYDROCODONE/APAP 5MG-325MG TAB PO PRN (02:13)
[2021-04-21] MEDS: HYDRALAZINE HCL 20 MG/ML VIAL IV PRN (02:14)
[2021-04-21] MEDS: FAMOTIDINE 20 MG TAB PO SCH ×2 (09:02→17:11)
[2021-04-21] MEDS: HYDRALAZINE HCL 25 MG TAB PO SCH ×4 (09:03→20:52)
[2021-04-21] MEDS: METOPROLOL TARTRATE 50 MG TAB PO SCH ×2 (09:03→17:11)
[2021-04-21] MEDS: OLMESARTAN 20 MG TAB PO SCH (09:03)
[2021-04-21] MEDS: MULTIVITAMINS/MINERALS TAB PO SCH (09:03)
[2021-04-21] MEDS ORDERED: CITRATE OF MAGNESIA 300ML BOTTLE PO ONE (12:30)
[2021-04-21] MEDS ORDERED: BISACODYL 10 MG SUPP PR NR (13:15)
[2021-04-21] MEDS: ENOXAPARIN SOD INJ 40 MG/0.4 ML SYR SC SCH (17:11)
[2021-04-21] MEDS: AMLODIPINE BESYLATE 5 MG TAB PO SCH (17:11)
[2021-04-21] MEDS: SIMVASTATIN 20 MG TAB PO SCH (20:52)
[2021-04-22] MEDS: MEROPENEM 1 GM in SODIUM CHLORIDE 0.9% 100 ML IV SCH ×2 (02:32→10:00)
[2021-04-22 05:01] VITALS: BP 188/59
[2021-04-22] MEDS: HYDRALAZINE HCL 20 MG/ML VIAL IV PRN (06:50)
[2021-04-22 08:19] VITALS: BP 180/62
[2021-04-22 08:29] VITALS: BP 180/92
[2021-04-22] MEDS: FAMOTIDINE 20 MG TAB PO SCH (08:33)
[2021-04-22] MEDS: HYDRALAZINE HCL 25 MG TAB PO SCH (08:37)
[2021-04-22] MEDS: METOPROLOL TARTRATE 50 MG TAB PO SCH (08:38)
[2021-04-22] MEDS: MULTIVITAMINS/MINERALS TAB PO SCH (08:38)
[2021-04-22] MEDS: OLMESARTAN 20 MG TAB PO SCH (08:38)
[2021-04-22 08:42] VITALS: BP 167/59
[2021-04-22] MEDS ORDERED: AMLODIPINE BESYLATE 5 MG TAB PO SCH (11:00)
[2021-04-22 12:00] VITALS: BP 163/60
[2021-04-22] MEDS ORDERED: ONDANSETRON HCL 4 MG ORAL DISINTEGRATING TAB PO PRN (13:30)
[2021-04-22] MEDS ORDERED: NORVASC5 MG PO (13:40)
[2021-04-22] MEDS ORDERED: CLONIDINE HCL0.1 MG PO (13:42)
== END 2021-04-22 15:16 | disposition home or self-care (01) | DRG 415 ==
LOC: ER 03:14 → ERHOLD 06:48 → MED/SURG3 15:05
PROVIDERS: ADMIT Internal Medicine; ATTEND Internal Medicine
PROC: 0FT40ZZ Resection of Gallbladder, Open Approach (ICD-10-PCS; principal; 2021-04-17 14:30)
DX: K80.00 Calculus of gallbladder with acute cholecystitis without obstruction (principal); E87.1 Hypo-osmolality and hyponatremia; N39.0 Urinary tract infection, site not specified; D84.821 Immunodeficiency due to drugs; K82.A1 Gangrene of gallbladder in cholecystitis; M06.9 Rheumatoid arthritis, unspecified; E11.9 Type 2 diabetes mellitus without complications; D64.9 Anemia, unspecified; E78.5 Hyperlipidemia, unspecified; I48.0 Paroxysmal atrial fibrillation; Z79.01 Long term (current) use of anticoagulants; Z20.822 Contact with and (suspected) exposure to COVID-19; K44.9 Diaphragmatic hernia without obstruction or gangrene; K57.30 Diverticulosis of large intestine without perforation or abscess without bleeding; F32.A Depression, unspecified; B96.89 Other specified bacterial agents as the cause of diseases classified elsewhere; K59.00 Constipation, unspecified; I16.0 Hypertensive urgency; Z79.899 Other long term (current) drug therapy; Z88.4 Allergy status to anesthetic agent; Z88.1 Allergy status to other antibiotic agents; Z88.0 Allergy status to penicillin; Z91.013 Allergy to seafood; E78.00 Pure hypercholesterolemia, unspecified
CPT/HCPCS: 36415; 74177; 80048; 80053; 80076; 81001; 82948; 83690; 85025; 85610; 85730; 87086; 87186; 88304; 94799; 96361; 97139; 99284; J0330; J0360; J0461; J1644; J1650; J2001; J2185; J2270; J2405; J2710; J3010; J7030; J7050; J7121; Q9967; U0002

== ENCOUNTER → 2021-05-03 | Outpatient (CLI) | payer MEDICARE ==
[~2021-05-03] MED LIST changes: +CLONIDINE HCL0.1 MG PO; +IOPAMIDOL 370 MG/ML 200 ML INFUS..BTL INJ ONE; +NORVASC5 MG PO; +SODIUM CHLORIDE 0.9% 500ML 500 ML ONE; +SODIUM CHLORIDE 0.9% 50ML 50 ML ONE
[2021-05-03 15:00] LABS: CREATININE, SERUM 1.06 mg/dL (0.57-1.11)
== END ==
LOC: CT 14:01
PROVIDERS: ATTEND Family Medicine
DX: R22.1 Localized swelling, mass and lump, neck (principal)
CPT/HCPCS: 36415; 70491; 82565; 84520; J7040; Q9967

== ENCOUNTER 2021-10-18 09:17 | Emergency (ER) | payer MEDICARE ==
[~2021-10-18] VITALS: Ht 160 cm; Wt 61.2 kg
[~2021-10-18 09:17] MED LIST changes: -IOPAMIDOL 370 MG/ML 200 ML INFUS..BTL INJ ONE; -SODIUM CHLORIDE 0.9% 500ML 500 ML ONE; -SODIUM CHLORIDE 0.9% 50ML 50 ML ONE
[2021-10-18 11:23] LABS: CLARITY,URINE SL CLOUDY (CLEAR); COLOR,URINE YELLOW (YELLOW); KETONES,URINE NEGATIVE (NEGATIVE); LEUKOCYTE ESTERASE ,URINE NEGATIVE (NEGATIVE); NITRITE,URINE NEGATIVE (NEGATIVE); PROTEIN,URINE DIPSTICK NEGATIVE (NEGATIVE); URINE UROBILINOGEN 0.2 mg/dL (0.2 - 1)
[2021-10-18 11:31] LABS: BACTERIA,URINE MANY /HPF; EPITHELIAL CELLS,URINE FEW /LPF; RBC,URINE 0-5 /HPF (0-5)
[2021-10-18] MEDS ORDERED: CEFDINIR300 MG PO (11:48)
[2021-10-18] MEDS ORDERED: MUCINEX DM ER1 EACH PO (11:51)
== END 2021-10-18 12:47 | disposition home or self-care (01) ==
LOC: ER 10:19
DX: R05.9 Cough, unspecified (principal); J06.9 Acute upper respiratory infection, unspecified; N39.0 Urinary tract infection, site not specified; I10 Essential (primary) hypertension; E11.9 Type 2 diabetes mellitus without complications; E78.5 Hyperlipidemia, unspecified; J45.909 Unspecified asthma, uncomplicated; M06.9 Rheumatoid arthritis, unspecified; M54.9 Dorsalgia, unspecified; G89.29 Other chronic pain; Z20.822 Contact with and (suspected) exposure to COVID-19
CPT/HCPCS: 81001; 99283; U0002

== ENCOUNTER 2022-02-09 10:18 | Emergency (ER) | payer MEDICARE ==
[~2022-02-09] VITALS: Ht 160 cm; Wt 61.2 kg
[~2022-02-09 10:18] MED LIST changes: +CEFDINIR300 MG PO; +MUCINEX DM ER1 EACH PO
== END 2022-02-09 11:37 | disposition home or self-care (01) ==
LOC: ER 10:24
DX: K59.00 Constipation, unspecified (principal); I10 Essential (primary) hypertension; E11.9 Type 2 diabetes mellitus without complications; E78.5 Hyperlipidemia, unspecified; J45.909 Unspecified asthma, uncomplicated; M06.9 Rheumatoid arthritis, unspecified; M54.9 Dorsalgia, unspecified; G89.29 Other chronic pain
CPT/HCPCS: 74019; 99283

== ENCOUNTER 2024-04-25 22:42 | Emergency (ER) | payer MEDICARE ==
[~2024-04-25] VITALS: Ht 160 cm; Wt 61.2 kg
[2024-04-26 00:09] VITALS: PULSE 59; RESP 20; TEMP 98.4
[2024-04-26 01:10] LABS: BASOPHILS # (AUTO) 0.1 (0.0-0.1); BASOPHILS % 0.7 % (0.0-1.0); EOSINOPHILS # (AUTO) 0.1 (0.0-0.4); EOSINOPHILS % 1.5 % (0.0-6.0); HEMATOCRIT 38.2 % (34.2-44.1); HEMOGLOBIN 12.2 g/dL (12.0-16.0); LYMPHOCYTES # (AUTO) 0.9 (1.0-3.2); LYMPHOCYTES % 9.1 % (18.0-39.1); MEAN CORPUSCULAR HEMOGLOBIN 32.2 pg (28-32); MEAN CORPUSCULAR HGB CONC 31.9 g/dL (31-35); MEAN CORPUSCULAR VOLUME 100.8 fL (81-99); MONOCYTES # (AUTO) 0.9 (0.2-0.8); MONOCYTES % 9.5 % (4.4-11.3); NEUTROPHILS # (AUTO) 7.5 (2.1-6.9); NEUTROPHILS % 78.6 % (38.7-80.0); PLATELET COUNT 269 x10e3/uL (140-360); RED BLOOD COUNT 3.79 x10e6/uL (3.6-5.1); RED CELL DISTRIBUTION WIDTH 15.5 % (11.7-14.4); WHITE BLOOD COUNT 9.48 x10e3/uL (4.8-10.8)
[2024-04-26 01:33] LABS: ALANINE AMINOTRANSFERASE 27 IU/L (0-55); ALBUMIN 3.8 g/dL (3.5-5.0); ALBUMIN/GLOBULIN RATIO 1.1 (0.8-2.0); ALKALINE PHOSPHATASE 92 IU/L (40-150); ANION GAP 17.8 mmol/L (8-16); BILIRUBIN,TOTAL 0.5 mg/dL (0.2-1.2); BLOOD UREA NITROGEN 18 mg/dL (7-26); BUN/CREATININE RATIO 20 (6-25); CALCIUM 11.2 mg/dL (8.4-10.2); CARBON DIOXIDE 25 mmol/L (22-29); CHLORIDE 99 mmol/L (98-107); CREATINE KINASE 170 IU/L (29-168); CREATININE, SERUM 0.91 mg/dL (0.57-1.11); EST GLOMERULAR FILTRATION RATE 60 ML/MIN (>=60); GLUCOSE 162 mg/dL (74-118); POTASSIUM 3.8 mmol/L (3.5-5.1); SODIUM 138 mmol/L (136-145); TOTAL PROTEIN 7.4 g/dL (6.5-8.1)
[2024-04-26 01:34] LABS: INFLUENZA A AG NEGATIVE (NEGATIVE)
[2024-04-26 01:35] LABS: CORONAVIRUS COVID-19 AG NEGATIVE (NEGATIVE); INFLUENZA B AG NEGATIVE (NEGATIVE)
[2024-04-26 01:48] VITALS: PULSE 55; RESP 16; O2SAT 94
[2024-04-26] MEDS: ALBUTEROL/IPRATROPIUM 3 ML NEB NEB STA (01:51)
[2024-04-26 01:55] LABS: TROPONIN I < 0.05 ng/mL (0.0-0.40)
[2024-04-26] MEDS ORDERED: AZITHROMYCIN250 MG PO (02:36)
[2024-04-26] MEDS ORDERED: VENTOLIN HFA18 GM INH (02:36)
[2024-04-26] MEDS ORDERED: PREDNISONE20 MG PO (02:36)
[2024-04-26 03:51] VITALS: BP 134/69; PULSE 61; RESP 19; TEMP 97.9; O2SAT 98
== END 2024-04-26 02:53 | disposition home or self-care (01) ==
LOC: ER 22:50
DX: R05.9 Cough, unspecified (principal); J06.9 Acute upper respiratory infection, unspecified; J90 Pleural effusion, not elsewhere classified; E11.65 Type 2 diabetes mellitus with hyperglycemia; E78.5 Hyperlipidemia, unspecified; K44.9 Diaphragmatic hernia without obstruction or gangrene; M06.9 Rheumatoid arthritis, unspecified; M19.09 Primary osteoarthritis, other specified site; J45.909 Unspecified asthma, uncomplicated; R53.81 Other malaise; M54.9 Dorsalgia, unspecified; G89.29 Other chronic pain; F32.A Depression, unspecified; Z11.52 Encounter for screening for COVID-19; R94.31 Abnormal electrocardiogram [ECG] [EKG]
CPT/HCPCS: 36415; 71045; 80053; 82550; 83690; 83880; 84484; 85025; 93005; 94640; 94799; 99283